=== PATIENT | female | born 1950 | race Caucasian/White ===

== ENCOUNTER → 2016-08-01 | Outpatient (CLI) | payer BC ==
[~2016-08-01] MED LIST: ALBU1AER9 INH; ASTN; ATV1 PO; BIOT1CAP8 PO; BUPRTAB51 PO; CHOL1000 PO; CYAN10005 PO; ENOX80IN SQ; MOME50SP5; PRT/20 PO; RANI150T3 PO; RIVA1TAB4 PO; SYMIN160 INH; SYN25 PO; TIOTCAP INH; WARF1TAB6 PO
--- NOTE | 2016-08-01 11:19 | DIAGNOSTIC IMAGING REPORT ---
ULTRASOUND OF THE THYROID GLAND CLINICAL HISTORY: Nontoxic multinodular goiter. COMPARISON STUDY: Thyroid ultrasound dated 12/15/2012. TECHNIQUE: Real-time, grayscale, and color flow sonography of the thyroid gland is performed utilizing a high-frequency linear transducer. Images are reviewed in the transverse and longitudinal planes. FINDINGS: Right lobe: The right lobe of the thyroid gland is surgically absent Left lobe: The left lobe of the thyroid gland is slightly enlarged and heterogeneous in echotexture, measuring 5.3 x 2.5 x 2.1 cm. A honeycomb nodule in the anterior lower pole measures 1.2 x 0.8 x 0.8 cm (previously measured 0.9 x 0.5 x 0.7 cm). Additional subcentimeter nodules are noted. The previously characterized 0.6 x 0.5 x 0.7 cm nodule seen on 12/15/2012 has likely decreased in size and is not well visualized. Isthmus: The thyroid isthmus is normal in appearance and measures 0.4 cm in AP diameter. IMPRESSION: 1. The right lobe of the thyroid gland is surgically absent. 2. Small left-sided thyroid nodules are noted as detailed above. The appearance has not significantly changed from 12/15/2012. Electronically signed by: Gregory Sampson M.D. 08/01/2016 11:18 AM Dictated Date/Time: 08/01/2016 11:15 AM
== END | disposition home or self-care (01) ==
LOC: C.ULTR 10:16
PROVIDERS: ATTEND Surgery
DX: E04.2 Nontoxic multinodular goiter (principal)

== ENCOUNTER → 2016-12-12 | Day surgery (SDC) | payer BC ==
[2016-12-05 08:24] VITALS: BMI 31.0
[~2016-12-12] VITALS: Ht 165.1 cm; Wt 86.4 kg
[~2016-12-12] MED LIST changes: -ASTN; -CHOL1000 PO; +FENTANYL CITRATE INJ 50 MCG/1 ML 2 ML VIAL ONE; +LIDOCAINE HCL 2% 2 ML VIAL (20MG/ML) ONE; -MOME50SP5; +PROPOFOL IV EMULSION 10 MG/ML 20 ML VIAL IV ONE; -PRT/20 PO; -RANI150T3 PO; -RIVA1TAB4 PO; +SODIUM CHLORIDE 0.9% 500ML 500 ML IV ONE; -SYN25 PO
[2016-12-12 13:23] VITALS: Ht 165.1 cm; Wt 86.4 kg
[2016-12-12 13:25] VITALS: TEMP 36.9
--- NOTE | 2016-12-12 14:10 | Endo History and Physical ---
History & Physical Date of Service: Dec 12, 2016. Chief Complaint: DYSPHAGIA Referring Physician: DR. TEO GUERRA History of Present Illness dysphagia Past Medical History Anxiety, Reflux, Thyroid Disease, Other Past Surgical History Hx Cardiac Surgery: No Hx Internal Defibrillator: No Hx Pacemaker: No Hx Abdominal Surgery: No Hx of Implantable Prosthesis: No Hx Post-Op Nausea and Vomiting: Yes Hx Cancer Surgery: Yes (BACK EXCISION-MELANOMA) Hx Thoracic Surgery: No Hx Orthopedic: Yes (RT FOOT SURGERY (HAMMER TOE REPAIR)) Hx Urinary Tract Surgery: No Family History None Social History Smoking Status: Heavy Tobacco Smoker Hx Substance Use: No Hx Alcohol Use: Yes (1X MONTHLY) Allergies Coded Allergies: Latex1 -Allergic Contact Dermititis (Verified Allergy, Mild, 12/12/16) Bacitracin (Verified Allergy, Unknown, RASH, 12/12/16) Neomycin (Verified Allergy, Unknown, RASH, 12/12/16) Polymyxin B (Verified Allergy, Unknown, RASH, 12/12/16) Current Medications Reported Home Medications Medications Dose Route/Sig Max Daily Dose Days Date Category Dose Instructions Jantoven (Warfarin Sodium) 1 Mg Tab 1 Mg PO DIRECTED 12/05/16 Reported TAKES 3MG 2XWK TAKES 4MG 5XWK Wellbutrin-Xl (Bupropion HCl) 300 Mg Tabcr 300 Mg PO QAM 12/05/16 Reported Lorazepam 1 Mg Tab 1 Mg PO BID PRN 05/17/16 Reported Spiriva Handihaler (Tiotropium [place]) 18 Mcg/ Aerp 1 Cap INH QAM 01/03/16 Reported Vitamin B-12 (Cyanocobalamin) 1,000 Mcg Tab 2,500 Mcg PO QAM 05/24/15 Reported Proair Hfa (Albuterol) Aers 2 Puffs INH UD PRN 05/24/15 Reported Symbicort 160/4.5 Inhaler (Budesonide/Formoterol Fumarate) Aero 2 Puffs INH BID 05/24/15 Reported Biotin 1 Mg Cap 1 Cap PO QAM 12/05/16 Reported Vital Signs Weight (Kilograms): 86.36 Height (Feet): 5 Height (Inches): 5 Date Time Temp Pulse Resp B/P (MAP) Pulse Ox O2 Delivery O2 Flow Rate FiO2 12/12/16 13:25 36.9 81 20 156/69 (98) 97 Room Air Physical Exam AAOx3 Nls1s2 Lungs CTA Abd soft NT/ND + BS - CCe Assessment and Plan EGD/ dilation
--- NOTE | 2016-12-12 14:26 | Discharge Instructions ---
Endoscopy Patient Instructions Date / Procedure(s) Performed Dec 12, 2016. EGD Allergy Information Coded Allergies: Latex1 -Allergic Contact Dermititis (Verified Allergy, Mild, 12/12/16) Bacitracin (Verified Allergy, Unknown, RASH, 12/12/16) Neomycin (Verified Allergy, Unknown, RASH, 12/12/16) Polymyxin B (Verified Allergy, Unknown, RASH, 12/12/16) Discharge Date / Findings Dec 12, 2016. esophagitis gastritis-bx Medication Instructions Stopped Medication(s): COUMADIN AND VITAMINS Restart Stopped Medication(s): Reported Home Medications Medications Dose Route/Sig Max Daily Dose Days Date Category Dose Instructions Jantoven (Warfarin Sodium) 1 Mg Tab 1 Mg PO DIRECTED 12/05/16 Reported TAKES 3MG 2XWK TAKES 4MG 5XWK Wellbutrin-Xl (Bupropion HCl) 300 Mg Tabcr 300 Mg PO QAM 12/05/16 Reported Lorazepam 1 Mg Tab 1 Mg PO BID PRN 05/17/16 Reported Spiriva Handihaler (Tiotropium [place]) 18 Mcg/ Aerp 1 Cap INH QAM 01/03/16 Reported Vitamin B-12 (Cyanocobalamin) 1,000 Mcg Tab 2,500 Mcg PO QAM 05/24/15 Reported Proair Hfa (Albuterol) Aers 2 Puffs INH UD PRN 05/24/15 Reported Symbicort 160/4.5 Inhaler (Budesonide/Formoterol Fumarate) Aero 2 Puffs INH BID 05/24/15 Reported Biotin 1 Mg Cap 1 Cap PO QAM 12/05/16 Reported Prilosec 40 mg daily Reported Home Medications Medications Dose Route/Sig Max Daily Dose Days Date Category Dose Instructions Jantoven (Warfarin Sodium) 1 Mg Tab 1 Mg PO DIRECTED 12/05/16 Reported TAKES 3MG 2XWK TAKES 4MG 5XWK Wellbutrin-Xl (Bupropion HCl) 300 Mg Tabcr 300 Mg PO QAM 12/05/16 Reported Lorazepam 1 Mg Tab 1 Mg PO BID PRN 05/17/16 Reported Spiriva Handihaler (Tiotropium [place]) 18 Mcg/ Aerp 1 Cap INH QAM 01/03/16 Reported Vitamin B-12 (Cyanocobalamin) 1,000 Mcg Tab 2,500 Mcg PO QAM 05/24/15 Reported Proair Hfa (Albuterol) Aers 2 Puffs INH UD PRN 05/24/15 Reported Symbicort 160/4.5 Inhaler (Budesonide/Formoterol Fumarate) Aero 2 Puffs INH BID 05/24/15 Reported Biotin 1 Mg Cap 1 Cap PO QAM 12/05/16 Reported Prilosec 40 mg daily Provider Instructions Activity Restrictions - No exercising or heavy lifting for 24 hours. - Do not drink alcohol the day of the procedure. - Do not drive a car or operate machinery until the day after the procedure. - Do not make any important decisions or sign important papers in 24 hours after the procedure. Following Day: - Return to full activity which may include returning to work/school. Diet Start your diet with liquids and light foods (jello, soup, juice, toast). Then eat your usual diet if not nauseated. Treatment For Common After Affects For mild abdominal pain, bloating, or excessive gas: - Rest - Eat lightly - Lie on right side Follow-Up Information Follow-up with DR. TEO GUERRA as scheduled Anesthesia Information What You Should Know You have had a procedure that required some medicine to reduce anxiety and discomfort. This treatment is called moderate sedation. After receiving the treatment, you may be sleepy, but you will be able to breathe on your own. The effects of the treatment may last for several hours. Follow these instructions along with Activity/Diet recommendations noted above: * Do NOT do anything where dizziness or clumsiness would be dangerous. * Rest quietly at home today, then you can be up and about tomorrow. * Have a responsible person stay with you the rest of today. * You may have had an I.V. today. If so, you may take the dressing off later today. Recommendations Call your doctor if: * Trouble breathing * Continuous vomiting for more than 24 hours * Temperature above 101 degrees * Severe abdominal pain or bloating * Pain not relieved by pain medicine ordered * There is increased drainage or redness from any incision * A large amount of rectal bleeding greater than 2-3 tablespoons. (If you had a polyp/s removed or have hemorrhoids, a small amount of blood - from the rectum is to be expected.) * You have any unanswered questions or concerns. IN THE EVENT OF A SERIOUS EMERGENCY, GO TO THE NEAREST EMERGENCY ROOM Your discharge instructions were prepared by provider Gee Garcia. Patient Instructions Signature Page Irene Walker Patient (or Guardian) Signature/Date: I have read and understand the instructions given to me by my caregivers. Caregiver/RN/Doctor Signature/Date: The above-named patient and/or guardian has received patient instructions on this date. + Original Patient Signature Page (only) stays with chart. Please make copy for patient.
--- NOTE | 2016-12-12 14:33 | GI REPORT ---
Procedure Date: 12/12/2016 1:55 PM Procedure: Upper GI endoscopy Indications: Dysphagia Medicines: Propofol per Anesthesia Complications: No immediate complications. Estimated blood loss: Minimal. Estimated Blood Loss: Estimated blood loss was minimal. Procedure: Pre-Anesthesia Assessment: - Prior to the procedure, a History and Physical was performed, and patient medications and allergies were reviewed. The patient's tolerance of previous anesthesia was also reviewed. The risks and benefits of the procedure and the sedation options and risks were discussed with the patient. All questions were answered, and informed consent was obtained. Prior Anticoagulants: The patient has taken no previous anticoagulant or antiplatelet agents. ASA Grade Assessment: III - A patient with severe systemic disease. After reviewing the risks and benefits, the patient was deemed in satisfactory condition to undergo the procedure. After obtaining informed consent, the endoscope was passed under direct vision. Throughout the procedure, the patient's blood pressure, pulse, and oxygen saturations were monitored continuously. The scope was introduced through the mouth, and advanced to the second part of duodenum. The upper GI endoscopy was accomplished without difficulty. The patient tolerated the procedure well. Findings: The upper third of the esophagus and middle third of the esophagus were normal. LA Grade B (one or more mucosal breaks greater than 5 mm, not extending between the tops of two mucosal folds) esophagitis with no bleeding was found 33 to 35 cm from the incisors. A small hiatus hernia was found. The proximal extent of the gastric folds (end of tubular esophagus) was 35 cm from the incisors. The hiatal narrowing was 37 cm from the incisors. The Z-line was 35 cm from the incisors. Striped mildly erythematous mucosa without bleeding was found in the gastric antrum. Biopsies were taken with a cold forceps for Helicobacter pylori testing. The examined duodenum was normal. The cardia and gastric fundus were normal on retroflexion. Retained gastric contents are not identified on this exam. Impression: - Normal upper third of esophagus and middle third of esophagus. - LA Grade B reflux esophagitis. - Small hiatus hernia. - Erythematous mucosa in the antrum. Biopsied. - Normal examined duodenum. Recommendation: - Discharge patient to home (ambulatory). - Advance diet as tolerated. MD Gee Blum MD 12/12/2016 2:32:47 PM This report has been signed electronically. Note Initiated On: 12/12/2016 1:55 PM I attest to the content of the Intraoperative Record and orders documented therein, exceptions below
[2016-12-12 14:55] VITALS: BP 142/60; PULSE 83; O2SAT 93
--- NOTE | 2016-12-12 14:58 | Anesthesiology Progress Note ---
Anesthesia Post Op Note Date & Time Dec 12, 2016 at 14:58 Vital Signs Pain Intensity: 0 Vital Signs Past 12 Hours Date Time Temp Pulse Resp B/P (MAP) Pulse Ox O2 Delivery O2 Flow Rate FiO2 12/12/16 14:55 83 16 142/60 (87) 93 Room Air 12/12/16 14:40 80 16 137/67 (90) 93 Room Air 12/12/16 14:25 84 16 123/58 (79) 95 Room Air 12/12/16 13:25 36.9 81 20 156/69 (98) 97 Room Air Notes Mental Status: alert / awake / arousable, participated in evaluation Pt Amnestic to Procedure: Yes Nausea / Vomiting: adequately controlled Pain: adequately controlled Airway Patency, RR, SpO2: stable & adequate BP & HR: stable & adequate Hydration State: stable & adequate Anesthetic Complications: no major complications apparent
== END | disposition home or self-care (01) ==
LOC: C.GI 12:53
PROVIDERS: ATTEND Internal Medicine Gastroenterology
DX: R13.10 Dysphagia, unspecified (principal); K21.0 Gastro-esophageal reflux disease with esophagitis; K44.9 Diaphragmatic hernia without obstruction or gangrene; J44.9 Chronic obstructive pulmonary disease, unspecified; F41.9 Anxiety disorder, unspecified; F17.200 Nicotine dependence, unspecified, uncomplicated; Z98.890 Other specified postprocedural states; Z86.718 Personal history of other venous thrombosis and embolism; Z85.828 Personal history of other malignant neoplasm of skin; Z91.040 Latex allergy status; Z88.1 Allergy status to other antibiotic agents

== ENCOUNTER → 2017-02-18 | Outpatient (CLI) | payer BC ==
[~2017-02-18] MED LIST changes: -FENTANYL CITRATE INJ 50 MCG/1 ML 2 ML VIAL ONE; -LIDOCAINE HCL 2% 2 ML VIAL (20MG/ML) ONE; -PROPOFOL IV EMULSION 10 MG/ML 20 ML VIAL IV ONE; -SODIUM CHLORIDE 0.9% 500ML 500 ML IV ONE
--- NOTE | 2017-02-18 14:25 | DIAGNOSTIC IMAGING REPORT ---
RIGHT SHOULDER MIN 2 VIEWS ROUTINE CLINICAL HISTORY: Right shoulder pain COMPARISON: None. DISCUSSION: No fractures or dislocations are visualized. There is mild acromial spurring. There is a partially visualized right perihilar opacity. While likely representing a vessel, either pathologic entities cannot be excluded IMPRESSION: 1. Acromial spurring 2. No fractures or subluxations identified. Electronically signed by: Fabian Delaney M.D. 02/18/2017 2:24 PM Dictated Date/Time: 02/18/2017 2:22 PM
== END | disposition home or self-care (01) ==
LOC: C.RAD 13:40
PROVIDERS: ATTEND Family Medicine
DX: M25.511 Pain in right shoulder (principal); M75.91 Shoulder lesion, unspecified, right shoulder

== ENCOUNTER → 2017-04-22 | Outpatient (CLI) | payer BC ==
--- NOTE | 2017-04-22 14:55 | MAMMOGRAPHY REPORT ---
BILATERAL DIGITAL SCREENING MAMMOGRAM WITH CAD: 04/22/2017 CLINICAL HISTORY: Routine screening. Patient has no complaints. TECHNIQUE: Bilateral CC and MLO views were obtained. Repeat left MLO views were obtained due to gri d line artifact. Current study was also evaluated with a Computer Aided Detection (CAD) system. COMPARISON: Comparison is made to exams dated: 04/20/2016 mammogram, 04/19/2015 mammogram, 03/04/2014 mammogram, 03/03/2013 mammogram, 02/28/2012 mammogram, and 12/14/2010 mammogram - [facility]. BREAST COMPOSITION: There are scattered areas of fibroglandular density in both breasts. FINDINGS: There are possible groupings of microcalcifications in the upper outer middle to posterior left breast, for which additional spot magnification views are recommended. There are other scattered benign round and punctate microcalcifications, stable bilaterally. No other suspicious mass, architectural distortion or cluster of suspicious microcalcifications is seen. IMPRESSION: ACR BI-RADS CATEGORY 0: INCOMPLETE EVALUATION: NEED ADDITIONAL IMAGING EVALUATION The possible groupings of microcalcifications in the left upper outer breast need additional evaluati on. The patient will be called to schedule an appointment. Approximately 10% of breast cancers are not detected with mammography. A negative mammographic report should not delay biopsy if a clinically suggestive mass is present. Emily Caraballo M.D. ay/:04/22/2017 12:54:13 Note Teller: Brittaney HADDAD)(Ella), [facility] letter sent: Addl Imaging 0 BI-RADS Code: ACR BI-RADS Category 0: Incomplete Evaluation: Need Additional Imaging Evaluation
== END | disposition home or self-care (01) ==
LOC: C.MAMM 11:54
PROVIDERS: ATTEND Family Medicine
DX: Z12.31 Encounter for screening mammogram for malignant neoplasm of breast (principal); Z80.3 Family history of malignant neoplasm of breast; R92.0 Mammographic microcalcification found on diagnostic imaging of breast

== ENCOUNTER → 2017-05-02 | Outpatient (CLI) | payer BC ==
--- NOTE | 2017-05-02 14:55 | MAMMOGRAPHY REPORT ---
UNILATERAL LEFT DIGITAL DIAGNOSTIC MAMMOGRAM TOMOSYNTHESIS: 05/02/2017 CLINICAL HISTORY: Callback from screening mammogram for left breast calcifications. Family history o f breast cancer in her sister and mother. TECHNIQUE: Breast tomosynthesis in addition to standard 2D mammography was performed. Spot magnific ation left CC and ML views and spot compression left CC and MLO 2-D and tomosynthesis images were obt ained. COMPARISON: Comparison is made to exams dated: 04/22/2017 mammogram, 04/20/2016 mammogram, 5 mammogram, 03/04/2014 mammogram, 03/03/2013 mammogram, and 02/28/2012 mammogram - [facility]. BREAST COMPOSITION: There are scattered areas of fibroglandular density in the left breast. FINDINGS: Spot magnification views of the left breast demonstrate a small 5 mm cluster of faint predo minantly punctate calcifications in the left upper outer quadrant. The calcifications are not clearl y shown to be located within the skin and therefore may be parenchymal in location. The calcificatio ns are new compared to prior exams. Given that the cluster is new and is not clearly located within the skin, it is indeterminate and stereotactic biopsy is recommended for further evaluation. Other s cattered and grouped calcifications within the left upper outer breast are shown to be located within the skin on the tomosynthesis images and are therefore compatible with benign dermal calcifications. IMPRESSION: ACR BI-RADS CATEGORY 4: SUSPICIOUS New small 5 mm group of calcifications in the left upper outer quadrant, which are not clearly locate d within the skin on the additional images. The calcifications are indeterminate and stereotactic bi opsy is recommended for further evaluation. A phone call was made to the physician's office to confirm faxed results were received. The patient has been verbally notified of the results. She tentatively scheduled the biopsy before leaving the d epartment. I will leave it up to the patient's prescribing physician if she can safely discontinue C oumadin prior to the procedure. Approximately 10% of breast cancers are not detected with mammography. A negative mammographic report should not delay biopsy if a clinically suggestive mass is present. Shala Gastelum M.D. ah/:05/02/2017 11:57:16 Model Dresser: Medina HADDAD)(M), [facility] letter sent: Abnormal 4/5 BI-RADS Code: ACR BI-RADS Category 4: Suspicious
== END | disposition home or self-care (01) ==
LOC: C.MAMM 10:02
PROVIDERS: ATTEND Family Medicine
DX: R92.1 Mammographic calcification found on diagnostic imaging of breast (principal)

== ENCOUNTER → 2017-05-14 | Outpatient (CLI) | payer BC ==
--- NOTE | 2017-05-14 11:33 | Discharge Instructions ---
Discharge Instructions Procedure Procedure Date: May 14, 2017. Reason for visit: Left Calcs. Discharge Discharge Date: May 14, 2017. Discharge Diagnosis: post left breast stereotactic guided biopsy Medications Restart Stopped Medication(s): Follow coumadin clinic instructions, but may restart coumadin this evening Instructions Activity Recommendations: Additional Limitations (see below) Return to School/Work: no limitations Recommended Home Diet: No Limitations Provider Instructions: ACTIVITY RECOMMENDATIONS: * No lifting, pushing, pulling or exercising the affected side for three days. RETURN TO SCHOOL/WORK: * You may return to work/school after the procedure, but do not perform any strenuous activities for 24 to 48 hours. MEDICATIONS: * Tylenol (two 325 mg) every four to six hours if needed for mild pain (if not allergic to Tylenol). DIET: * Resume previous diet. SPECIAL CARE INSTRUCTIONS: * Keep biopsy site dry for 24 hours. May shower after 24 hours, but do not soak (bathe) incision. * May remove Tegaderm (plastic patch) tomorrow AFTER showering. * Leave the steri-strips on for one week. Allow the steri-strips to fall off by themselves. If not off after one week, you may remove them. You may place a Bandaid crosswise over the strips, if desired. * Apply ice 10 minutes on and 10 minutes off as needed. * Wear a bra at bedtime to sleep more comfortably for 2-3 days. * Your referring physician should have the results after approximately 5 to 7 business days. * Call for unusual bleeding, fever, drainage, etc or if you have any questions call [phone] during normal business hours or after hours call Dr Caraballo, . FOLLOW UP VISIT: Follow-up with Referring Physician as scheduled. Allergies Coded Allergies: Latex1 -Allergic Contact Dermititis (Verified Allergy, Mild, 12/12/16) Bacitracin (Verified Allergy, Unknown, RASH, 12/12/16) Neomycin (Verified Allergy, Unknown, RASH, 12/12/16) Polymyxin B (Verified Allergy, Unknown, RASH, 12/12/16) Tino Lopez Recommendations: Call your doctor if: * Temperature above 101 degrees * Pain not relieved by pain medicine ordered * There is increased drainage or redness from any incision * You have any unanswered questions or concerns. Your Doctors Instructions noted above were prepared by provider Emily Caraballo. Patient Signature Section: Patient Instructions Signature Page Irene Walker Patient (or Guardian) Signature/Date: I have read and understand the instructions given to me by my caregivers. Caregiver/RN/Doctor Signature/Date: The above-named patient and/or guardian has received patient instructions on this date. + Original Patient Signature Page (only) stays with chart. Please make copy for patient.
--- NOTE | 2017-05-21 09:34 | MAMMOGRAPHY REPORT ---
UNILATERAL LEFT DIGITAL DIAGNOSTIC MAMMOGRAM: 05/14/2017 CLINICAL HISTORY: Status post stereotactic biopsy of a faint cluster of amorphous microcalcifications in the upper outer middle one third of the left breast. Please refer to the report from left breast stereotactic biopsy performed at the same time for full d etail. IMPRESSION: POST PROCEDURE IMAGING FOR MARKER PLACEMENT Please refer to the report from left breast stereotactic biopsy performed at the same time for full d etail. Approximately 10% of breast cancers are not detected with mammography. A negative mammographic report should not delay biopsy if a clinically suggestive mass is present. Emily Caraballo M.D. ay/:05/14/2017 11:31:45 Technology Director: Medina SALDAÑA(Cora)(M), [facility] BI-RADS Code: Post Procedure Imaging For Marker Placement
--- NOTE | 2017-05-21 09:34 | MAMMOGRAPHY REPORT ---
STEREOTACTIC GUIDED BIOPSY LEFT BREAST: 05/14/2017 CLINICAL HISTORY: Faint clustered microcalcifications in the left upper outer quadrant. Patient pres ents for stereotactic guided biopsy. Family history of breast cancer. COMPARISON: Comparison is made to exams dated: 05/02/2017 mammogram, 04/22/2017 mammogram, 04/20/2016 mammogram, and 04/19/2015 mammogram - [facility]. PATIENT CONSENT: After explaining the risks, benefits and alternatives of the procedure to the patien t, informed consent was obtained both verbally and in writing. Specific risks include: Bleeding, inf ection, puncture of adjacent structure, pain, nontarget biopsy, sampling error, metal allergy and med ication reaction. PROCEDURE DESCRIPTION: A time-out was performed and the left breast was confirmed as the site of biop sy. The patient was placed prone on the stereotactic biopsy table and the breast was placed in CC fro m above compression, with slight roll. A bailiff image was obtained that demonstrated the clustered ángel rocalcifications in question. They are amenable to sterotactic biopsy. Then +15 and -15 stereo giovanna r images were obtained. The calcifications were targeted utilizing the coordinates obtained by the [employer]. The skin was prepped with Betadine. 1% Lidocaine with and without epinipherine was administe red as local anesthesia. A small skin incision was made. Through the incision, the needle was insert ed to the depth determined by the computer. 6 samples were obtained using a OneWire 9-gauge vacuu m-assisted biopsy device. The specimen radiograph demonstrated several phone representative microcalcificat ions, therefore, a metallic marker was placed at the biopsy site. There was no immediate complication . Hemostasis was achieved after several minutes of manual compression. The samples were sent to path ogy in two appropriately labeled containers, "with calcifications" and "without calcifications". Al l of the samples were obtained from the same single biopsy site. Postprocedure CC and ML views of the left breast were obtained. A new dumbbell-shaped biopsy marker clip is identified in the left upper outer middle one third of the breast adjacent to an air pocket from the biopsy site. No residual faint microcalcifications are definitely seen. No significant pos t biopsy hematoma. IMPRESSION: STEREOTACTIC GUIDED BIOPSY 1. Status post stereotactic biopsy of a faint cluster of microcalcifications in the upper outer middl e one third of the left breast, with biopsy marker placed at the site. 2. Patient may resume Coumadin this evening and follow remainder of bridging Lovenox protocol, as no postbiopsy hematoma is identified. The patient will receive notification of the biopsy results from her referring physician. Emily Caraballo M.D. ay/:05/14/2017 11:55:12 Paperboard Box Maker: Medina HADDAD)(Ella), [facility]
== END | disposition home or self-care (01) ==
LOC: C.MAMM 10:26
PROVIDERS: ATTEND Family Medicine
DX: R92.0 Mammographic microcalcification found on diagnostic imaging of breast (principal)

== ENCOUNTER → 2017-05-27 | Outpatient (CLI) | payer BC ==
--- NOTE | 2017-05-27 13:49 | DIAGNOSTIC IMAGING REPORT ---
CHEST 2 VIEWS ROUTINE CLINICAL HISTORY: R05 COUGH dizzy COMPARISON STUDY: 07/04/2015 FINDINGS: The bones soft tissues and hemidiaphragms are normal. The cardiomediastinal silhouette is normal. The lungs are clear. The pulmonary vasculature is normal. IMPRESSION: Negative chest. The above report was generated using voice recognition software. It may contain grammatical, syntax or spelling errors. Electronically signed by: Vadim Ponce M.D. 05/27/2017 1:48 PM Dictated Date/Time: 05/27/2017 1:48 PM
--- NOTE | 2017-05-27 13:56 | DIAGNOSTIC IMAGING REPORT ---
L-SPINE MIN 4 VIEWS ROUTINE HISTORY: 67 years-old Female R05 COUGH R20.0 ANTHESTHESIA OF THE SKIN bilateral lower extremity radiography with history of spinal stenosis COMPARISON: CT abdomen and pelvis 03/09/2014 TECHNIQUE: 5 views of the lumbar spine FINDINGS: There are 5 lumbar type vertebral segments present. The bones are mildly demineralized. 3 mm retrolisthesis L2 on L3 is noted, possibly secondary to underlying facet disease. Mild anterior wedging of approximately 20% involves the T12 vertebral body, unchanged. 20% anterior wedging of the L1 vertebral body appears new from comparison CT. No retropulsion identified. Multilevel endplate spurring and facet arthropathy is noted along with intervertebral disc space narrowing which is predominately mild to moderate within the lumbar spine. Soft tissues are unremarkable. Radiodensities of the left upper abdomen measuring up to 4 mm suggest possible nephrolithiasis. IMPRESSION: 1. Age-indeterminate 20% anterior endplate wedging of the L1 vertebral body appears new from comparison CT 03/09/2014. No associated retropulsion. Correlate with patient history and point tenderness. 2. Degenerative changes as above. 3. Suggested left nephrolithiasis. The above report was generated using voice recognition software. It may contain grammatical, syntax or spelling errors. Electronically signed by: Blas Scott M.D. 05/27/2017 1:54 PM Dictated Date/Time: 05/27/2017 1:50 PM
== END | disposition home or self-care (01) ==
LOC: C.RAD 12:58
PROVIDERS: ATTEND Family Medicine
DX: R05 Cough (principal); R20.0 Anesthesia of skin

== ENCOUNTER → 2017-06-21 | Outpatient (CLI) | payer BC ==
[~2017-06-21] MED LIST changes: +ALEN70TA4 PO; +ATV/1 PO; +DIPH-437 PO; +LEVO25TA5 PO; +MELA1CAP9 PO; +SPRIN/30 INH; +VNTHFA/IN INH
--- NOTE | 2017-06-21 10:59 | DIAGNOSTIC IMAGING REPORT ---
LEFT FOOT 3 VIEWS HISTORY: Medial left foot pain. COMPARISON: None. FINDINGS: There is no fracture or dislocation. Soft tissues are unremarkable. No radiopaque foreign bodies. Small plantar and posterior calcaneal spurs. The Lisfranc joint is intact. IMPRESSION: 1. No fracture or dislocation within the left foot. 2. Small plantar and posterior calcaneal spurs. Electronically signed by: Ramakrishna Hassan M.D. 06/21/2017 10:57 AM Dictated Date/Time: 06/21/2017 10:53 AM
== END | disposition home or self-care (01) ==
LOC: C.RAD 10:30
PROVIDERS: ATTEND Family Medicine
DX: M79.672 Pain in left foot (principal)

== ENCOUNTER → 2017-07-25 | Outpatient (CLI) | payer BC ==
[~2017-07-25] MED LIST changes: -ALEN70TA4 PO; -ATV/1 PO; -DIPH-437 PO; -LEVO25TA5 PO; -MELA1CAP9 PO; -SPRIN/30 INH; -VNTHFA/IN INH
== END | disposition home or self-care (01) ==
LOC: C.MAMM 10:59
PROVIDERS: ATTEND Family Medicine
DX: M85.89 Other specified disorders of bone density and structure, multiple sites (principal)

== ENCOUNTER → 2017-09-02 | Outpatient (CLI) | payer BC ==
--- NOTE | 2017-09-03 08:08 | DIAGNOSTIC IMAGING REPORT ---
CT LUNG SCREENING, LOW DOSE WITH COMPUTER-AIDED DETECTION (CAD) CLINICAL HISTORY: Cancer screening. 40 pack-year smoking history. Nicotine dependence. COMPARISON STUDY: Chest radiograph dated 05/27/2017. Abdominal CT dated 03/09/2014. CT of the neck dated 01/16/2013. Chest CT dated 12/26/2010. Thyroid ultrasound dated 08/01/2016. TECHNIQUE: Low-dose helical CT was acquired without intravenous contrast from lung apices to bases and reconstructed at 2.5 mm every 2 mm. CAD was utilized for this study. A dose lowering technique was utilized adhering to the principles of ALARA. FINDINGS: Thyroid: Imaged portions of the thyroid gland are mildly enlarged and heterogeneous. Low-attenuation nodules are again noted. The largest is on the right and measures 2.1 cm. This is was characterized on the 08/01/2016 thyroid ultrasound. Thoracic aorta: There is mild atherosclerotic calcification of the thoracic aorta, which is normal in caliber and demonstrates standard 3 vessel arch anatomy. Heart: The heart is normal in size and configuration, without pericardial effusion. The coronary arteries are densely calcified. Lungs and pleural spaces: There is moderate emphysematous change. No airspace consolidation or pleural effusion is identified. A 6 cm pleural-based nodule in the right lower lobe as seen on image #125. A 2 mm pleural-based nodule is seen in the left upper lobe lung the major fissure on image #59. These are unchanged in from 2011 and of doubtful significance. Scattered calcified granulomas are observed. The trachea and central airways are clear. Mediastinum: There is no mediastinal lymphadenopathy. Meme: Not well assessed without IV contrast. Axilla: Clear. Upper abdomen: There is a small hiatal hernia. Partially visualized upper abdominal viscera is otherwise grossly within normal limits. Skeletal structures: The skeletal structures are osteopenic. Degenerative change and hyperkyphosis are noted in the thoracic spine. There are no lytic or blastic osseous lesions. IMPRESSION: 1. Moderate emphysema. 2. No concerning pulmonary lesion is seen. 3. No airspace consolidation or pleural effusion is identified. CAD FINDINGS: Nodule 1 Status: Baseline Nodule 1 Description: solid Nodule 1 Lesion ID: 1 Nodule 1 Slice Number: 63 Nodule 1 Volume (mm3): 43.2 Nodule 1 Major [place] mm: 5.8 Nodule 1 Minor [place] mm: 3.5 Overall Lung RADS Category: 2 Lung RADS Management Recommendation: Continue annual lung cancer screening. Lung RADS Follow Up Date: September 02, 2018 Lung RADS Nodule ID: 1 Electronically signed by: Gregory Sampson M.D. 09/03/2017 8:06 AM Dictated Date/Time: 09/02/2017 10:49 AM
== END | disposition home or self-care (01) ==
LOC: C.CTS 10:29
PROVIDERS: ATTEND Family Medicine
DX: Z87.891 Personal history of nicotine dependence (principal)

== ENCOUNTER → 2017-11-13 | Outpatient (CLI) | payer BC ==
--- NOTE | 2017-11-13 14:23 | MAMMOGRAPHY REPORT ---
UNILATERAL LEFT DIGITAL DIAGNOSTIC MAMMOGRAM TOMOSYNTHESIS WITH CAD: 11/13/2017 CLINICAL HISTORY: 67-year-old woman presents for follow-up in the left breast after previous stereota ctic biopsy which yielded benign results. TECHNIQUE: Left breast tomosynthesis in addition to standard 2D mammography was performed. Current st udy was also evaluated with a Computer Aided Detection (CAD) system. COMPARISON: Comparison is made to exams dated: 05/14/2017 mammogram, 05/14/2017 stereotactic biopsy, 05/02/2017 mammogram, 04/22/2017 mammogram, 04/20/2016 mammogram, and 04/19/2015 mammogram - [facility]. BREAST COMPOSITION: There are scattered areas of fibroglandular density in the left breast. FINDINGS: There is a stable dumbbell-shaped biopsy marker clip in the upper outer middle one third of the left breast. There are other scattered benign punctate and dermal calcifications throughout the left breast, without new suspicious grouping or cluster of microcalcifications. No new suspicious m ass, asymmetry or architectural distortion. Recommend return to annual screening mammography schedul e, due 2017. IMPRESSION: ACR BI-RADS CATEGORY 2: BENIGN Stable postbiopsy changes in the left breast, without mammographic evidence of malignancy. Return to annual mammogram screening schedule is recommended. The patient has been verbally notified of the re sults. Approximately 10% of breast cancers are not detected with mammography. A negative mammographic report should not delay biopsy if a clinically suggestive mass is present. Emily Caraballo M.D. ay/:11/13/2017 13:10:57 Scanning Supervisor: Mamie Kauffman, [facility] letter sent: Normal 1/2 BI-RADS Code: ACR BI-RADS Category 2: Benign
== END | disposition home or self-care (01) ==
LOC: C.MAMM 12:40
PROVIDERS: ATTEND Surgery
DX: Z09 Encounter for follow-up examination after completed treatment for conditions other than malignant neoplasm (principal)

== ENCOUNTER → 2018-02-12 | Outpatient (CLI) | payer BC ==
[~2018-02-12] MED LIST changes: -ALBU1AER9 INH; +ALEN70TA4 PO; +ATV/1 PO; -ATV1 PO; -BIOT1CAP8 PO; -BUPRTAB51 PO; -CYAN10005 PO; +DIPH-437 PO; -ENOX80IN SQ; +LEVO25TA5 PO; +MELA1CAP9 PO; +PERFLUTREN LIPID MICROSPHERE (DEFINITY) IV ONE; +SPRIN/30 INH; -TIOTCAP INH; +VNTHFA/IN INH
--- NOTE | 2018-02-12 17:16 | ECHOCARDIOGRAM REPORT ---
*NOTICE TO RECEIVING [employer] This information is strictly Confidential and protected under [place] law. [place] law prohibits you from making any further disclosure of this information unless further disclosure is expressly permitted by the written consent of the person to whom it pertains or is authorized by law. A general authorization for the release of medical or other information is not sufficient for this purpose. Hospital accepts no responsibility if the information is made available to any other person, INCLUDING THE PATIENT. Interpretation Summary * Name: SCARLET SIERRA Study Date: 02/12/2018 12:49 PM BP: 136/50 mmHg * Patient Location: [facility] HR: 85 * : 1950 (M/d/yyyy) Gender: Female Height: 64 in * Age: 67 yrs Ethnicity: [place] Weight: 193 lb * Ordering Physician: Taj Nascimento * Referring Physician: Taj Nascimento * Performed By: Oanh Workman RDCS * * Reason For Study: SOB * BSA: 1.9 m2 * -- Conclusions -- * Technically difficult study despite use of definity ultrasound contrast. * 1. Grossly normal LV size with borderline concentric LVH. * 2. LVEF 60-65%. Grade II diastolic dysfunction. * 3. Borderline dilated RV with normal RV function. * 4. No significant valvular pathology. * 5. Normal IVC and estimated CVP. * 6. No prior study for comparison. Procedure Details * A complete two-dimensional transthoracic echocardiogram was performed (2D, M-mode, Doppler and color flow Doppler). * The study was technically difficult. * There were technical limitations due to patient'sPoor acoustic windows secondary to severe lung disease. * A contrast injection of Definity was performed to improve assessment of LV function. * Contrast was injected into an intravenous site in the left arm. * One vial of Definity ultrasound contrast was diluted in normal saline to a total volume of 10 ml. A total of '3.5' ml of solution was administered during imaging. * Lot # [id number] of Definity utilized for procedure. * Expiration date 01/09. * The attending nurse who injected the contrast agent was BRIDGETTE RAGLAND RN. Left Ventricle * The left ventricle is grossly normal size. * There is borderline concentric left ventricular hypertrophy. * Ejection Fraction = 60-65%. * abnormal septal motion Right Ventricle * The right ventricle is borderline dilated. * The right ventricular systolic function is normal as assessed by tricuspid annular plane systolic excursion (TAPSE) (normal >1.5 cm). Atria * Borderline left atrial enlargement. * The right atrium is mildly dilated. Mitral Valve * The mitral valve is grossly normal. * There is no mitral valve stenosis. * Significant mitral regurgitation is absent. Tricuspid Valve * The tricuspid valve is not well visualized, but is grossly normal. * Significant tricuspid regurgitation is absent. Aortic Valve * The aortic valve is not well visualized. * No hemodynamically significant valvular aortic stenosis. * There is no significant aortic regurgitation. Pulmonic Valve * The pulmonary valve is inadequately visualized, but the Doppler data is adequate for interpretation. Great Vessels * Normal inferior vena cava size and collapsability with sniff indicates a normal right atrial pressure of 3 mmHg Left Ventricular Diastolic Function * Diastolic dysfunction, Grade II (pseudonormalization pattern). MMode 2D Measurements and Calculations LVOT diam 2.0 cm LVOT area 3.3 cm\S\2 LVAd ap4 31.3 cm\S\2 LVLd ap4 8.5 cm EDV(MOD-sp4) 97.9 ml EDV(sp4-el) 98.0 ml LVAs ap4 13.6 cm\S\2 LVLs ap4 5.8 cm ESV(MOD-sp4) 27.7 ml ESV(sp4-el) 27.3 ml EF(MOD-sp4) 71.7 % EF(sp4-el) 72.2 % LVAd ap2 25.2 cm\S\2 LVLd ap2 7.3 cm EDV(MOD-sp2) 71.0 ml EDV(sp2-el) 73.7 ml LVAs ap2 12.9 cm\S\2 LVLs ap2 6.4 cm ESV(MOD-sp2) 21.3 ml ESV(sp2-el) 22.0 ml EF(MOD-sp2) 70.0 % EF(sp2-el) 70.1 % LVLd %diff -15.85 % EDV(MOD-bp) 88.8 ml LVLs %diff 9.9 % ESV(MOD-bp) 25.2 ml EF(MOD-bp) 71.7 % SV(MOD-sp4) 70.2 ml SI(MOD-sp4) 36.4 ml/m\S\2 SV(MOD-sp2) 49.7 ml SI(MOD-sp2) 25.8 ml/m\S\2 SV(MOD-bp) 63.7 ml SI(MOD-bp) 33.0 ml/m\S\2 SV(sp4-el) 70.7 ml SI(sp4-el) 36.7 ml/m\S\2 SV(sp2-el) 51.7 ml SI(sp2-el) 26.8 ml/m\S\2 Doppler Measurements and Calculations MV E max tha 72.4 cm/sec MV A max tha 66.0 cm/sec MV E/A 1.1 MV dec time 0.21 sec Ao V2 max 108.7 cm/sec Ao max PG 4.7 mmHg Ao max PG (full) 2.0 mmHg BRAD(V,A) 2.5 cm\S\2 BRAD(V,D) 2.5 cm\S\2 LV V1 max PG 2.8 mmHg LV V1 max 83.2 cm/sec PA V2 max 72.8 cm/sec PA max PG 2.1 mmHg
== END | disposition home or self-care (01) ==
LOC: C.CPL 12:39
PROVIDERS: ATTEND Internal Medicine Critical Care Medicine
DX: R06.02 Shortness of breath (principal)

== ENCOUNTER 2023-06-17 06:33 | Inpatient (IN) ==
--- OUTSIDE RECORDS SUMMARY | 2023-06-17 06:36 | External Medical Summary | Continuity of Care Document ---
Author Name Unknown Organization [facility] [address] [place] [address] Address [address] [facility] [place], [place] [id number] Care Team Providers Care Warp Tension Tester Name Role Phone Nat Shankar Primary Care Physician [phone] Encounter [facility] [id number] Date(s): 06/06/23 - 06/06/[address] [place] [id number] [facility], [address] [place] [address] [phone] Encounter Diagnosis Anxiety(Discharge Diagnosis) - 05/31/23 Body mass index [BMI] 19.9 or less, adult(Discharge Diagnosis) - 06/06/23 Chronic constipation(Discharge Diagnosis) - 06/06/23 Tobacco abuse(Discharge Diagnosis) - 06/06/23 Weight loss(Discharge Diagnosis) - 06/06/23 Sacral pain(Discharge Diagnosis) - 06/06/23 Discharge Disposition: Home or Self Care Attending Physician: DO Shankar Kristen M Referring Physician: DO Shankar Kristen M Allergies, Adverse Reactions, Alerts Substance Reaction Severity Status codeine nausea Active Polysporin Rash Active raNITIdine nausea Active Neosporin Rash Active Levaquin Nausea Active Latex break out in rash Active IVP dye nauseated Active Assessment and Plan Extracted from: Title:Office Visit Note Author:DO Shankar Kriste n M Date:06/06/23 1.Chronic constipation Chronic condition, stable Goal:Resolution Data:unique tests ordered: _ Plan: _Pt is going totry smoothe move 2.Tobacco abuse Chronic condition, stable Goal:Resolution Data:unique tests ordered: _ Plan: _discussed and supported 3.Weight loss Chronic condition, stable Goal:Resolution Data:unique tests ordered: _ Plan: _pt is going to see nutrition 4.Sacral pain Chronic condition, stable Goal:Resolution Data:unique tests ordered: _ Plan: _Dr. Pryor Immunizations Given and Recorded Vaccine Date Status Refusal Reason SARS-CoV-2 (COVID-19) mRNA BNT-162b2 vax 09/02/20 Recorded SARS-CoV-2 (COVID-19) mRNA BNT-162b2 vax 08/05/20 Recorded human papillomavirus vaccine 1 10/24/09 Recorded 1Result Comment: [06/25/2012 Uncharted] Wrong patient Medications albuterol CFC free 90 mcg/inh MDI Start: 12/20/22 14:24:00 EDT, See Instructions, Disp# 6 kit, Refills: 3, INHALE 4 PUFFS BY MOUTH EVERY 4 HOURS NEEDED FOR WHEEZING, Pharmacy: [facility] Start Date: 12/20/22 Status: Ordered Amitiza Start: 01/10/23 15:08:00 EDT, 8 mcg =, PO, bid Start Date: 01/10/23 Status: Ordered cloNIDine 0.1 mg oral tablet Start: 05/13/23 10:50:00 EST Start Date: 05/13/23 Status: Ordered LORazepam 1 mg oral tablet Start: 05/31/23 9:57:00 EST, 1 tab, PO, bid, Disp# 180 tab, Refills: 3, prn, Pharmacy: [facility] Start Date: 05/31/23 Status: Ordered melatonin 10 mg oral tablet Start: 05/31/21 10:54:00 EST, 1 tab, PO, qhs Start Date: 05/31/21 Status: Ordered Metoprolol Succinate ER 25 mg oral tablet, extended release Start: 08/01/22 11:27:00 EST, 1 tab, PO, tid Start Date: 08/01/22 Status: Ordered omeprazole 20 mg oral delayed release capsule Start: 01/10/23 15:09:00 EDT, 1 cap, PO, Daily Start Date: 01/10/23 Status: Ordered Spiriva Respimat 10 ACT 2.5 mcg/inh inhalation aerosol Start: 08/08/21 11:44:00 EST, 2 inh, inhaled, Daily, Disp# 3 each, Refills: 3, Pharmacy: [facility] Start Date: 08/08/21 Status: Ordered Symbicort 160 mcg-4.5 mcg/inh inhalation aerosol Start: 12/11/22 14:21:00 EDT, 2 puff, inhaled, bid, Disp# 4 each, Refills: 3, Pharmacy: [facility] Start Date: 12/11/22 Status: Ordered Synthroid 25 mcg (0.025 mg) oral tablet Start: 06/01/22 12:00:00 EST, See Instructions, Disp# 135 tab, Refills: 3, 1.5 tab PO Daily, Note to Pharmacy: Please mail to the house, Pharmacy: [facility] Start Date: 06/01/22 Status: Ordered unknown medication Start: 02/08/22 12:58:00 EDT, oxygen 2LPM Start Date: 02/08/22 Status: Ordered warfarin 1 mg oral tablet Start: 11/21/22 11:09:00 EDT, See Instructions, Disp# 300 tab, Refills: 3, Per coag clinic. Pt takes 26mg weekly, Pharmacy: [facility] Start Date: 11/21/22 Status: Ordered Mental Status 06/06/23 Barriers to Learning one year None evide nt Mandatory Health Literacy Documentation Yes Health Literacy Communication Barriers N ever Primary Language Greenlandic Problem List Condition Confirmation Course Effective Dates Status H ealth Status Informant Pain in the abdomen Confirmed Active Heart rate problem Confirmed Active Actinic keratoses Confirmed Active COPD exacerbation Confirmed Active Alopecia Confirmed Active Anxiety Confirmed 03/09/13 Active Xerosis cutis Confirmed Active Multiple nevi Confirmed Active Epistaxis Confirmed Active Yeast vaginitis Confirmed Active Chronic constipation Confirmed Active Chronic hypoxemic respiratory failure 1 Confirmed Active Constipation Confirmed Active COPD Confirmed Active Cyst near tailbone Confirmed Active On home oxygen therapy Confirmed Active Sacral mass Confirmed Active Urinary disorder Confirmed Active SOB (shortness of breath) Confirmed Active Dysuria Confirmed Active Dermatitis Confirmed Active Factor V Leiden Confirmed Active Fall at home Confirmed Active History of melanoma Confirmed Active Left hip pain Confirmed Active Hypothyroidism Confirmed Active Wound of right leg Confirmed Active Biceps tendon tear Confirmed Active Milia Confirmed Active Stuffy nose Confirmed Active Coccydynia Confirmed Active Coccyx pain Confirmed Active Palpitations Confirmed Active Peripheral vascular disease Confirmed Active Activated protein C resistance Confirmed Active Rosacea Confirmed Active Sacral pain Confirmed Active Sacral back pain Confirmed Active Sebaceous cyst Confirmed Active Seborrheic keratosis Confirmed Active Right shoulder pain Confirmed Active Sinus tachycardia Confirmed Active Skin ulcer Confirmed Active Venous ulcer Confirmed Active Sleep disorder Confirmed Active Tachycardia Confirmed Active Tobacco user Confirmed Active Tobacco abuse Confirmed Active Tremor Confirmed Active Unintended weight loss Confirmed Active 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 Confirmed Active Common wart Confirmed Active Ambulatory dysfunction Confirmed Active Weight loss Confirmed Active 1See Outside Note 02/01/22 01/25/22- [facility] Maurizio Serrano MD Diagnosis Diagnosis Type Effective Dates Health Status Clinical Service Informant Anxiety Discharge Diagnosis 05/31/23 Non-Specified Chronic constipation Discharge Diagnosis 06/06/23 Body mass index [BMI] 19.9 or less, adult Discharge Diagnosis 06/06/23 Non-Specified Tobacco abuse Discharge Diagnosis 06/06/23 Sacral pain Discharge Diagnosis 06/06/23 Weight loss Discharge Diagnosis 06/06/23 Procedures Procedure Date Related Diagnosis Body Site Status Endoscopy 1 12/26/22 Completed Cholecystectomy 04/2021 Completed Cholecystectomy 04/2021 Completed Colonoscopy 2 10/25/20 Completed Colonoscopy 3 10/25/20 Completed Upper GI endoscopy 4 10/25/20 Comp leted Nuclear medicine hepatobiliary scan 5 08/16/20 Completed US EXAM ABDOM COMPLETE 6 07/12/20 Completed Mammogram 7 05/03/20 Completed Chest X-ray 8 08/25/19 Completed Barium swallow 9 06/19/19 Complete d Ultrasound of soft tissue of neck 10 06/19/19 Completed Other - Orthopedic Right Shoulder 11 06/15/19 Completed Mammogram 12 04/28/[address] of lungs 13 09/12/18 Completed Cataract extraction 14 11/27/17 Co mpleted Mammogram 15 11/13/[address] of lung screening 16 09/02/17 C ompleted Lung Nodule Program 17 09/02/17 Co mpleted Biopsy of breast 05/14/17 Complete d Mammogram 18 05/02/17 Completed Upper GI endoscopy 19, 20 12/12/16 Completed Punch biopsy of skin 05/01/16 Comp leted Mammogram 04/20/16 Completed Venous Doppler 21 01/03/16 Complet ed peripheral arterial testing 12/07/15 Completed Mammogram 04/19/15 Completed Colonoscopy 22 01/25/14 Completed Punch biopsy of skin 11/11/12 Comp leted Mammogram 23 50 Completed melanoma removed from back Completed thyroid removal Completed Upper gastrointestinal endoscopy 24 Completed 1Upper GI: Mildly severe reflux esophagitis with no bleeding. Normal stomach. Normal examined duodenum. No specimens collected. 2Impression: Diverticulosis in the sigmoid colon. No specimens collected. 3impression: - diverticulosis in the sigmoid colon - no specimens collected 4Impression: Z-line regular, 36 cm from the incisors. Normal esophagus. Normal stomach. Normal examined duodenum. No specimens collected. 5Impression: 1. No evidence for cystic duct obstruction. 6impression: 1. Small gallstones. No gallbladder wall thickening. The patient did describe tenderness with palpation over the gallbladder. Clinical correlation recommended to assess for a developing acute cholecystitis. 2. normal caliber common bile duct. 3. a 7 mm right renal cyst. 7normal 81. No acute cardiopulmonary findings. 2. Emphysema. 9FL Barium Swallow FINDINGS: Ingestion: the patient was able to ingest barium and the barum pill without difficulty. Aspiration: None IMPRESSION: Mild esophageal dysmotility possibly presbyesophagus. Small hiatal hernia. 10IMPRESSION: No sonographic abnormality is identified. 11Injection in right shoulder 12No mammographic evidence of malignancy. 1 year screening recommended. 13No acute intrathoracic abnormality identified. No suspicious pulmonary nodules. No PE focal airspace consolidation. 14L eye 15wnl 16Impression: 1- Moderate emphysema 2- No concerning pulmonary lesion is seen 3- No airspace consolidation or pleural effusion is identified 17Study report: Lung nodules where found in patients recent study The lung nodules have not changed since 2010 and are considered stable at this time The radiologist recommends follow up screening with a low does CT scan in 12 months. 18New small 5mm group of calcifications in the left upper outer quadrant, which is not clearly located with the skin on the additional images. The calcifications are indeterminate and stereotactic biopsy is recommended for further evaluation. 19Pathology results: Stomach, biopsy: 1) Benign unremarakable gastric mucosa. 2) Negative for acute inflammation, intestinal metaplasia, dysplasia and carcinoma. 20Normal upper third of esophagus and middle third of esophagus. LA grade B reflux esophagitis. Smallhiatus hernia. Erythematous mucosa in the antrum. Biopsied. Normal examined duodenum. 21No evidence of deep venous thrombus within the right lower extremity 22Colonoscopy normal- Repeat in 10 years. 23No mammographic evidence of malignancy. 1 year screening recommended. [id number] normal Vital Signs Most recent to oldest [Reference Range]: 1 Height 159.8 cm (06/06/23 11:50 AM) Patient Weight 50.8 kg (06/06/23 11:50 AM) Body Mass Index 19.89 kg/m2 (06/06/23 11:50 AM) Temperature [36.5-37.9 DegC] 35.6 DegC *LOW* (06/06/23 11:50 AM) Heart Rate 60 bpm (06/06/23 11:50 AM) Blood Pressure 102/60mmHg (06/06/23 11:50 AM) Cuff Pulse Pressure 42 mmHg (06/06/23 11:50 AM) Social History Social History Type Response Tobacco Current every day sm oker, Cigarettes 1 Smoking Status Current every day li ght smoker Sex Female 11 ppd for approx 45 years FCM Outpt Note * DO Shankar Kristen M: PERFORM Event Display: FCM Outpt Note Authored Date: [id number] Chief Complaint F/u History of Present Illness Pt presents as follow up. She has a new GI doc. She has been dealing with severe constipation. Pt states she used ex-lax and went. She hasn't gone since. Approx 2 days. Physical Exam Vitals & Measurements T:35.6C HR:60(Monitored) BP:102/60 HT:159.8cm WT:50.8kg WT:50.800kg(Dosing) BMI:19.89 PHQ2 Data(Data Documented on:06/06/2023 11:48) Emotional health assessment NEGATIVE Assessment/Plan 1.Chronic constipation Chronic condition, stable Goal:Resolution Data:unique tests ordered: _ Plan: _Pt is going totry smoothe move 2.Tobacco abuse Chronic condition, stable Goal:Resolution Data:unique tests ordered: _ Plan: _discussed and supported 3.Weight loss Chronic condition, stable Goal:Resolution Data:unique tests ordered: _ Plan: _pt is going to see nutrition 4.Sacral pain Chronic condition, stable Goal:Resolution Data:unique tests ordered: _ Plan: _Dr. Konstantin Harris I spent4 mintime in previsit planning including prepping note and chart review . I spent23 time in face to face interaction with patient concerning the issues that brought them in today. I spent4 min time in post visit planning including finishing note and depart process Total time spent today on patient visit31 min Problem List/Past Medical History Ongoing Actinic keratoses Activated protein C resistance Alopecia Ambulatory dysfunction Anxiety Biceps tendon tear Chronic constipation Chronic hypoxemic respiratory failure Coccydynia Coccyx pain Common wart Constipation COPD COPD exacerbation Cyst near tailbone Dermatitis Dysuria Epistaxis Factor V Leiden Fall at home Heart rate problem History of melanoma Hypothyroidism Left hip pain Milia Multiple nevi On home oxygen therapy Pain in the abdomen Palpitations Peripheral vascular disease Right shoulder pain Rosacea Sacral back pain Sacral mass Sacral pain Sebaceous cyst Seborrheic keratosis Sinus tachycardia Skin ulcer Sleep disorder SOB (shortness of breath) Stuffy nose Tachycardia Tobacco abuse Tobacco user Tremor Unintended weight loss Urinary disorder 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 Venous ulcer Weight loss Wound of right leg Xerosis cutis Yeast vaginitis Historical Actinic keratitis Acute sinus infection Atypical pneumonia Bilateral shoulder pain Bronchitis Callus Candidal esophagitis Cataract Chronic sinusitis Cough Diarrhea DVT Fatigue L1 vertebral fracture Laceration Left leg swelling Leg muscle spasm Leg numbness Leg ulcer Lentigo LIPOMA Lymphadenopathy Melanocytic nevus of trunk Muscle spasm Muscular deconditioning Nausea Nausea and vomiting Neck pain Open wound Oral thrush Pharyngeal mass PND (post-nasal drip) Pyoderma gangrenosa Rash Rectal hemorrhage Rectal incontinence Right foot pain Right upper quadrant pain S/P thyroid surgery Sacroiliitis Seeing double Senile hyperkeratosis Sinusitis Skin lesion Solitary sacroiliitis (disorder) Solitary sacroiliitis (disorder) Stasis dermatitis Stress Tennis elbow Thyroid disorder Thyroid nodule Tobacco abuse counseling Tongue discoloration Varicose Viral gastroenteritis Vomiting Weight disorder Procedure/Surgical History Endoscopy (12/26/2022)Cholecystectomy (04/2021)Cholecystectomy (04/2021)Colonoscopy (10/25/2020)Upper GI endoscopy (10/25/2020)Colonoscopy (10/25/2020)Nuclear medicine hepatobiliary scan (08/16/2020)US EXAM ABDOM COMPLETE (07/12/2020)Mammogram (05/03/2020)Chest X-ray (08/25/2019)Barium swallow (06/19/2019)Ultrasound of soft tissue of neck (06/19/2019)Other - Orthopedic Right Shoulder (06/15/2019)Mammogram (04/28/2019)CT of lungs (09/12/2018)Cataract extraction (11/27/2017)Mammogram (11/13/2017)CT of lung screening (09/02/2017)Lung Nodule Program (09/02/2017)Biopsy of breast (05/14/2017)Mammogram (05/02/2017)Upper GI endoscopy (12/12/2016)Punch biopsy of skin (05/01/2016)Mammogram (04/20/2016)Venous Doppler (01/03/2016)peripheral arterial testing (12/07/2015)Mammogram (04/19/2015)Colonoscopy (01/25/2014)Punch biopsy of skin (11/11/2012)Mammogram (1950)thyroid removalmelanoma removed from backUpper gastrointestinal endoscopy Medications albuterol(albuterol CFC free 90 mcg/inh MDI), See Instructions, 3 refills budesonide-formoterol(Symbicort 160 mcg-4.5 mcg/inh inhalation aerosol), 2 puff, inhaled, bid, 3 refills cloNIDine(cloNIDine 0.1 mg oral tablet) levothyroxine(Synthroid 25 mcg (0.025 mg) oral tablet), See Instructions, 3 refills LORazepam(LORazepam 1 mg oral tablet), 1 mg= 1 tab, PO, bid, 3 refills lubiprostone(Amitiza), 8 mcg, PO, bid melatonin(melatonin 10 mg oral tablet), 10 mg= 1 tab, PO, qhs metoprolol(Metoprolol Succinate ER 25 mg oral tablet, extended release), 25 mg= 1 tab, PO, tid omeprazole(omeprazole 20 mg oral delayed release capsule), 20 mg= 1 cap, PO, Daily tiotropium(Spiriva Respimat 10 ACT 2.5 mcg/inh inhalation aerosol), 2 inh, inhaled, Daily, 3 refills unknown medication warfarin(warfarin 1 mg oral tablet), See Instructions, 3 refills Allergies IVP dyenauseated Latexbreak out in rash LevaquinNausea NeosporinRash PolysporinRash codeinenausea raNITIdinenausea Social History Smoking Status Current every day light smoker Tobacco - High Risk Use:Current every day smoker Type:Cigarettes - Comments: 1 ppd for approx 45 years Family History Breast cancer: Mother and Sister. Emphysema of lung: Father. Hypertension..: Mother. Health Status Family Member(s) Immunizations Vaccine Date Status SARS-CoV-2 (COVID-19) mRNA BNT-162b2 vax 09/02/2020 Recorded SARS-CoV-2 (COVID-19) mRNA BNT-162b2 vax 08/05/2020 Recorded Recommendations Health Maintenance Pending(in the next year) OverDue Adult Influenza Vaccine due07/01/23and every 1year Due Adult COVID-19 Vaccination due06/06/23Unknown Frequency Adult Tdap/Td Vaccine due06/06/23Unknown Frequency Falls Plan of Care due06/06/23Unknown Frequency Medicare Annual Wellness Visit due06/06/23and every 1year Pneumococcal Vaccine Older Adults due06/06/23One-time only Shingles Vaccine due06/06/23One-time only Satisfied(in the past 1 year) Satisfied Body Mass Index on06/06/23.Satisfied by MARYANN Paniagua Angela Breast Cancer Screening on08/23/22.Satisfied by MUKUND Boswell Donna Lipid Screening on08/06/22.Satisfied by [employer], [employer] Electronic Signature on File Electronically Reviewed/Signed by: Nat Shankar DO Author Signature Dt/Tm:06/06/2023 12:46 PM Department of Family Medicine [facility] [place] Patient Care team information Care Team Personnel Name: JENNIFER Damon Tara Position: Nurse Pract - Family Med Member Role: Lifetime Relationship Address: Address: [address] [place] [address] [place] Name: DO Shankar Kristen M Position: Physician - Family Med Member Role: Primary Care Provider Address: Address: [address] [place] [address] [place] Name: Jennie Owen Todd Position: Pharmacist Schedule II Member Role: Pharmacy - Lifetime Address: Address: [address] [place] [id number] [place] Name: Jennie Singletary Michele C Position: Pharmacist Schedule II Member Role: Pharmacy - Lifetime Address: Address: [address] [address] [place] Name: Jennie Mei Francis Position: Pharmacist Schedule II Member Role: Pharmacy - Lifetime Address: Address: [facility] [address] [place] [address] [place] Name: Jennie Palmer Paul T Position: Pharmacist Schedule II Member Role: Pharmacy - Lifetime Address: Address: [facility] [address] [place] [address] [place] Name: WALESKA Conti Lynn Position: Physician Tutorial Laboratory Supervisor Exempt - Vasc Surg Member Role: Lifetime Relationship Address: Address: [address] [place] [address] Name: KRISTEL Peralta, Shaina Maria Position: Physician - Podiatry Member Role: Lifetime Relationship Address: Address: [address] [facility] [address] [place] [address] Care Team Related Persons Name: ORACIO SIERRA Address: home [address] [facility], [id number]
[2023-06-17] MEDS ORDERED: ALBUT/IPRATROP 3MG/0.5MG NEB 3 ML VIAL ONE ×2 (06:37→06:48)
[2023-06-17] MEDS ORDERED: ALBUT/IPRATROP 3MG/0.5MG NEB 3 ML VIAL NEB STA (06:39)
[2023-06-17] MEDS ORDERED: methylPREDNISolone 125 MG/2 ML VIAL ONE (06:48)
[2023-06-17] MEDS ORDERED: OPTIRAY 320 125ml IV ONE (07:03)
[2023-06-17] MEDS ORDERED: ALBUT/IPRATROP 3MG/0.5MG NEB 3 ML VIAL NEB ONE (07:03)
[2023-06-17 07:36] LABS: Basophils # (auto) 0.05 K/uL (0.00-0.20); Basophils % (auto) 0.4 %; Hematocrit (blood only) 41.4 % (37.0-47.0); Hemoglobin 13.5 g/dl (12.0-16.0); Immature Granulocytes # (auto) 0.05 K/uL (0.01-0.20); Immature Granulocytes % (auto) 0.4 %; Lymphocytes # (auto) 0.43 K/uL (1.20-3.40); Lymphocytes % (auto) 3.2 %; Mean Corpuscular Hemoglobin 32.1 pg (25.0-34.0); Mean Corpuscular Hgb Conc 32.6 g/dL (32.0-36.0); Mean Corpuscular Volume 98.3 fL (80.0-100.0); Mean Platelet Volume 10.6 fL (9.4-12.4); Monocytes # (auto) 0.88 K/uL (0.11-0.59); Monocytes % (auto) 6.6 %; Neutrophils # (auto) 11.91 K/uL (1.40-6.50); Neutrophils % (auto) 89.4 %; Platelet Count 212 K/uL (130-400); RDW Coefficient of Variation 13.7 % (11.5-14.5); RDW Standard Deviation 49.9 fL (36.4-46.3); Red Blood Count 4.21 M/uL (4.20-5.40); White Blood Count 13.32 K/ul (4.8-10.8)
[2023-06-17 07:47] LABS: iSTAT Arterial Blood Gas HCO3 32 meg/L (19-24); iSTAT Arterial Blood Gas pCO2 83 mmHg (35-46); iSTAT Arterial Blood Gas pO2 332 mmHg (80-95); iSTAT Carbon Dioxide 35 mmol/L (24-31); iSTAT Hematocrit 39 % (37-47); iSTAT Hemoglobin 13.3 g/dl (12.0-16.0); iSTAT Potassium 4.2 mmol/L (3.3-5.0); iSTAT Sodium 136 mmol/L (135-144)
[2023-06-17 07:52] LABS: Alanine Aminotransferase 45 U/L (7-52); Albumin Globulin Ratio 1.5 (0.9-2); Albumin Level 3.8 gm/dl (3.4-5.0); Alkaline Phosphatase 64 U/L (34-104); Anion Gap 2 (3-11); BUN Creatinine Ratio 10.5 (10-20); Bilirubin,Total 0.5 mg/dl (0.2-1.0); Blood Urea Nitrogen 11 mg/dl (6-23); Calcium 8.9 mg/dl (8.6-10.3); Carbon Dioxide 35 mmol/L (21-32); Chloride 98 mmol/L (98-107); Est GFR (Non-African American) 52.6 ml/min; Globulin 2.6 gm/dl (2.5-4.0); Glucose 83 mg/dl (70-99(Fasting)); Sodium 135 mmol/L (136-145); Total Protein 6.4 gm/dl (6.0-8.3)
[2023-06-17 07:59] LABS: Adenovirus PCR Not Detected (NotDetected); Bordetella parapertussis PCR Not Detected (NotDetected); Bordetella pertussis PCR Not Detected (NotDetected); Chlamydia pneumoniae PCR Not Detected (NotDetected); Coronavirus 229E PCR Not Detected (NotDetected); Coronavirus CoV-2 (COVID19)PCR Not Detected (NotDetected); Coronavirus HKU1 PCR Not Detected (NotDetected); Coronavirus NL63 PCR Not Detected (NotDetected); Coronavirus OC43PCR Not Detected (NotDetected); Human Metapneumovirus PCR Not Detected (NotDetected); Influenza A PCR Not Detected (NotDetected); Influenza B PCR Not Detected (NotDetected); Mycoplasma pneumoniae PCR Not Detected (NotDetected); Parainfluenza Virus 1 PCR Not Detected (NotDetected); Parainfluenza Virus 2 PCR Not Detected (NotDetected); Parainfluenza Virus 3 PCR Not Detected (NotDetected); Parainfluenza Virus 4 PCR Not Detected (NotDetected); Rhinovirus/Enterovirus PCR Not Detected (NotDetected)
[2023-06-17 08:04] LABS: Respiratory Syncytial VirusPCR DETECTED (NotDetected)
[2023-06-17] MEDS ORDERED: DOXYCYCLINE HYCLATE 100 MG in DEXTROSE 5% MINI-B 100 ML IV STA (08:04)
[2023-06-17] MEDS ORDERED: cefTRIAXone SODIUM 2,000 MG/50 ML BAG IV STA (08:04)
[2023-06-17] MEDS: SODIUM CHLORIDE 0.9% 1,000 ML IV SCH ×3 (08:05→15:52)
[2023-06-17] MEDS ORDERED: SODIUM CHLORIDE 0.9% 250 ML IV ONE ×3 (08:05→09:28)
--- NOTE | 2023-06-17 08:08 | CT Scan Report ---
CT angio chest PE protocol CLINICAL HISTORY: ams, sob, ?pe TECHNIQUE: Multidetector row helical CT of the chest was performed with angiographic protocol. Brown l and sagittal reformations were obtained. Coronal and sagittal MIPS were obtained from the axial paola a set and were submitted for review. Automated dose lowering techniques and/or adjustment according to patient size were utilized for this exam. Comparison: Comparison is made to CTA chest 09/07/2022 FINDINGS: Lungs and pleura: Diffuse centrilobular emphysema is seen most prominent in the upper lobes. No suspi cious pulmonary nodules. Heart and pericardium: Heart size is normal. No pericardial effusion. Vessels: No evidence of pulmonary embolism. Moderate atherosclerotic disease. Mediastinum and kristine: Subcentimeter lymph nodes are seen. Chest wall and lower neck: Unremarkable. Abdomen: Reflux of contrast into the IVC is seen which can be seen in heart failure. Bones: Degenerative changes in the thoracic spine. IMPRESSION: No acute abnormality and in particular no evidence of pulmonary embolus. Reflux of contrast into the IVC which can be seen in heart failure. ACT 112: Negative or not required by law. Electronically signed by: Will Sylvester M.D. 06/17/2023 8:06 AM
[2023-06-17 08:39] LABS: Troponin I High Sensitivity 96.4 pg/ml (0-14)
--- NOTE | 2023-06-17 08:48 | CT Scan Report ---
CT angio neck with con, CT angio head w con, CT head/brain wo con CLINICAL HISTORY: neuro deficit, acute stroke suspected TECHNIQUE: Contiguous axial CT images of the head were acquired from the base of the skull to the bin rhea without intravenous contrast administration. CT angiography of the head and neck was performed f ollowing intravenous administration of iodinated contrast. Coronal and sagittal MIPS were obtained fr om the axial data set and were submitted for review. Automated dose lowering techniques and/or adjus tment according to patient size were utilized for this examination. All measurements were calculated based on NASCET criteria. Comparison: None available at the time of this dictation. FINDINGS: CT head: There is no acute intracranial hemorrhage or evidence of acute territorial infarction. No sh ift of the midline structures, mass effect, or extra-axial abnormalities are shown. Biapical emphysema is seen. CTA Neck: A 3 vessel aortic arch is shown. There is no significant atherosclerotic plaque in the aor tic arch or the origins of the innominate, left common carotid, and left subclavian arteries. The co mmon carotid, external carotid, cervical segments of the internal carotid arteries, and the cervical segments of the vertebral arteries are patent without hemodynamically significant stenosis. The left vertebral artery is dominant. CTA Head: The anterior and posterior cerebral circulations are patent. No hemodynamically significan t stenosis, aneurysm, dissection, or arteriovenous malformation is shown. IMPRESSION: 1. No acute intracranial hemorrhage, evidence of acute territorial infarction, or other acute intrac ranial disease process. 2. No occlusion, hemodynamically significant stenosis, or dissection in the major cervical arteries. 3. No occlusion, hemodynamically significant stenosis, aneurysm, dissection, or arteriovenous malfor mation in the major intracranial arteries. Assessment of stenosis of the internal carotid arteries is based on NASCET criteria. ACT 112: Negative or not required by law. Electronically signed by: Will Sylvester M.D. 06/17/2023 8:46 AM
[2023-06-17 08:50] LABS: Potassium 4.2 mmol/L (3.5-5.1)
--- NOTE | 2023-06-17 08:55 | Emergency Department Note ---
Impression & Plan Acute respiratory failure with hypoxia and hypercarbia, COPD (chronic obstructive pulmonary disease), RSV infection, Elevated troponin ED Provider Note NAME: SCARLET SIERRA AGE: 73 SEX: Female INFORMANT: Patient, EMS, family ED PROVIDER(S): Ry Trevino MD CHIEF COMPLAINT: Unresponsive PLAN: Disposition: Admitted Outpatient prescription management: none Referral: None MEDICAL DECISION MAKING: Patient presented due to unresponsive episode. By history there was concern for possible respiratory infection given the 's recent "bronchitis". EMS had administered Solu-Medrol and DuoNeb with some improvement. Patient was very weak but symmetric. She was answering basic questions upon ED arrival. Given her medical history and reports of anticoagulation use there was concerns for possible neurologic as well as pulmonary issues. She was sent emergently for CT imaging. No ICH noted. Patient had hyperinflation and COPD findings on chest x-ray. Mild pneumonitis. She was given a second nebulizer treatment and then an hour-long DuoNeb was ordered. I did contact respiratory. An ABG was performed and the patient was placed on BiPAP. This was done to help with her work of breathing. The patient's mental status improved fairly well from presentation. She was answering questions and denied any pain. Her ABG revealed adequate oxygenation with the multiple nebulizer treatments however her CO2 was markedly elevated at 83. She was tolerating the BiPAP very well. Her blood pressure was mildly soft and two fluid boluses was administered gently. CT imaging of the chest revealed no pulmonary embolus but radiology did raise concerns about possible CHF with reflux of the contrast into the IVC. Patient's cardiac troponin was mildly elevated however no acute ischemia was seen on ECG. Patient had a leukocytosis on CBC. She had blood cultures performed. Lactate was within normal limits. Patient was empirically given Rocephin and doxycycline. Bio fire testing was performed and did reveal the presence of RSV infection. COVID testing negative. Family was updated. Further management in the hospital will be necessary due to the hypercarbic respiratory failure which is likely secondary to her RSV and underlying COPD. Consultation was made with the hospitalist service Care/management discussed with: Discussed with geophysical manager. Discussed with EMS. Level of care consideration(s): After review of the information above and other included data, I feel the patient requires escalation of care to admission Triage Nursing notes: reviewed and agree them. Vital Signs: reviewed and remarkable for tachypnea Additional History obtained from: Family. was dealing with bronchitis recently. Patient was feeling under the weather yesterday per the son Chronic Medical/Social Conditions affecting care: COPD Prior/ Outside/ External records reviewed: none Differential Diagnosis: Infection, hypoglycemia, electrolyte abnormalities, overdose, toxicologic, cardiac sources, intracerebral event, neurologic, trauma, as well as other pathologies. Diagnostics, independently interpreted by me: ECG: Twelve-lead ECG reveals sinus rhythm with PVCs at [address] no ST elevation. Cardiac Monitoring: Cardiac monitoring ordered by me: The patient was placed on continuous cardiac monitoring and observed. It revealed a sinus rhythm at 94 bpm Medical decision rules: none Imaging studies: Chest x-ray reveals findings consistent with COPD and mild pneumonitis. No pneumothorax. Head CT: A noncontrast CT scan of the head was performed and was negative for tumor, fracture, intracranial hemorrhage, or other acute pathology. CT scan of the chest reveals no evidence of pulmonary embolism. CT and CT angiography of the head and neck reveal no acute occlusion HPI: 73 year old Female arrives for evaluation of altered mental. This started this morning per the and is improving. The family also notes the following associated symptoms, feeling under the weather yesterday. Per the he had bronchitis this week. Patient does have a history of COPD. EMS was summoned as the patient was unresponsive for the family. EMS noted that she was very wheezing and not moving much air. They applied a nebulizer treatment and gave Solu-Medrol. They considered CPAP however the patient had somewhat altered mental status and they were concerned. Patient's mental status did improve and oxygenation was 100% after nebulizer treatment. Upon arrival the patient is answering basic questions and moving arms and legs symmetrically but is generally weak. Current pain is rated as 0/10. Patient denies headache, chest pain, abdominal pain, vomiting. No reported fevers. History is limited secondary to medical acuity . PAST MEDICAL HISTORY: See Below, COPD PAST SURGICAL HISTORY: See Below, SOCIAL HISTORY: See Below, HOME MEDICATIONS: See Below ALLERGIES: See Below VITALS: See Below PHYSICAL EXAMINATION: GENERAL: Awake, semialert, ill appearing, in mild distress HENT: Normocephalic, atraumatic. Oropharynx unremarkable. EYES: Normal conjunctiva. Sclera non-icteric. NECK: Inspection normal. Non-tender. Supple. No nuchal rigidity. FROM. No masses. RESPIRATORY: Diffuse scattered wheezes. No rales. Increased respiratory effort. CARDIAC: Borderline tachycardic rate. Normal rhythm. No murmurs. No rubs. Extremities warm and well perfused. Pulses equal. No JVD. GI: Soft, non-distended. No tenderness to palpation. No rebound or guarding. No masses. RECTAL: Deferred. MUSCULOSKELETAL: Atraumatic. Chest examination reveals no tenderness. The back is symmetrical on inspection without obvious abnormality. There is no CVA tenderness to palpation. No joint edema. LOWER EXTREMITIES: Calves are equal size bilaterally and non-tender. No edema. Chronic venous discoloration. Small ulceration noted on the medial right lower vanegas without signs of infection. NEURO: Altered sensorium. No focal sensory or motor deficits noted. SKIN: No rash or jaundice noted. PROCEDURES: none CRITICAL CARE: I have personally spent greater than 50 minutes of critical care time in the direct management of this patient. This includes bedside care, interpretation of diagnostic studies, and testing, discussion with consultants, patient, and family members, and other required patient management activities. These minutes are in excess of all separately billable procedures. 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 Hx of blood clots Bronchitis Shortness of breath Chronic rhinitis Chronic sinusitis Laryngopharyngeal reflux Nontoxic multinodular goiter Pyoderma Sleep disorder Syncopal episodes Multiple lung nodules on CT History of nicotine dependence COPD (chronic obstructive pulmonary disease) History of hypothyroidism History of gastroesophageal reflux (GERD) Factor 5 Leiden mutation, heterozygous Surgical History History of tooth extraction History of cataract surgery History of cholecystectomy Hx of colonoscopy H/O melanoma excision History of foot surgery History of breast biopsy History of thyroid surgery Family History Unknown Hypertension Diabetes Mother Cancer Breast cancer Sister Cancer Breast cancer Factor V Leiden Other Family history of bleeding disorder No family history of adverse response to anesthesia Denies family history of Heart disease Stroke Asthma Social History Smoking Status: Current every day smoker Tobacco Type: Cigarettes Cigarettes Per Day: 11-12 cigs per day; Second Hand Exposure: Yes; Do You Dip or Chew Tobacco: No; Tobacco Cessation Education Requested by Patient: No Hx Alcohol Use: Yes Alcohol type: beer Hx Substance Use: No Preferred Language: Surinamese Communication Ability: Effective Windows Systems Architect Required: No Beliefs That Will Affect Care: None marital status: Current Living Situation: Spouse current occupational status: retired current occupation: Retired from [employer] How many Children do You have: 1 Other Information That Helps Us Care for You: No Feels Safe at Home: Yes Safety Concerns: Feels Safe At This Time Assistive Devices: Denture - Upper, Denture - Lower, Glasses and Oxygen - Continuous Allergies Allergies Allergy/AdvReac Type Severity Reaction Status Date / Time adhesive tape Allergy Intermediate Rash Verified 05/28/23 13:15 bacitracin Allergy Mild RASH Verified 05/28/23 13:15 latex Allergy Mild RASH Verified 05/28/23 13:15 neomycin Allergy Mild RASH Verified 05/28/23 13:15 polymyxin B Allergy Mild RASH Verified 05/28/23 13:15 levofloxacin [From Levaquin] AdvReac Severe N/V, dizzy Verified 05/28/23 13:15 Home Meds Home Medications Medication Instructions Recorded Confirmed albuterol sulfate 2.5 mg/3 mL 2.5 mg inhalation .COMPLEX PRN sob 02/19/19 06/17/23 (0.083 %) solution for nebulization lorazepam 1 mg tablet 1 mg PO BID 02/19/19 06/17/23 levothyroxine 25 mcg tablet See Rx Instructions PO .COMPLEX 09/01/19 06/17/23 diphenhydramine 25 1 tab PO HS 10/17/20 06/17/23 mg-acetaminophen 500 mg tablet melatonin 10 mg tablet 10 mg PO HS PRN Sleep 10/17/20 06/17/23 albuterol sulfate 90 mcg/actuation 2 puff inhalation Q6H PRN 09/10/22 06/17/23 aerosol inhaler shortness of breath or wheezing warfarin 3 mg tablet 0 mg PO DAILY 12/17/22 06/17/23 Previous Rx's Medication Instructions Recorded Oxygen Home #2 L 01/25/22 Portable Oxygen #1 ea 01/25/22 budesonide-formoterol HFA 160 2 puff inhalation BID #10.2 grams 09/10/22 mcg-4.5 mcg/actuation aerosol inhaler tiotropium bromide 2.5 2 inh inhalation QAM #3 Inhalers 09/10/22 mcg/actuation mist for inhalation (Spiriva Respimat) Portable Oxygen #1 ea 09/12/22 lubiprostone 8 mcg capsule 8 mcg PO BID #60 caps 12/06/22 (Amitiza) omeprazole 20 mg capsule,delayed 20 mg PO DAILY #30 caps 12/26/22 release clonidine HCl 0.1 mg tablet 0.1 mg PO BID PRN hypertensive 04/23/23 emergency #30 tabs metoprolol succinate 25 mg 25 mg PO TID #270 tabs 05/07/23 tablet,extended release 24 hr Results & Data (ED) Vital Signs Vital Signs - 24 hr 06/17/23 06:45 06/17/23 07:00 06/17/23 07:05 Pulse Rate 95 H 96 H 94 H Pulse Rate from SpO2 Sensor Pulse Rhythm Regular Pulse Strength Normal Respiratory Rate 30 H 24 28 H Respiratory Effort / Characteristics Non-Labored Spontaneous Spontaneous Respiratory Depth Normal Normal Respiratory Pattern Regular Regular Blood Pressure Blood Pressure Mean Pulse Oximetry 98 Oxygen Delivery Method Non-rebreather Fraction of Inspired Oxygen 21 Sepsis Recent Fever Within 48 Hours No Sepsis New/Unexplained Change in Mental Status Yes Sepsis Action Taken by Nursing No Action Required 06/17/23 07:15 06/17/23 07:16 06/17/23 07:16 Pulse Rate 94 H 93 H Pulse Rate from SpO2 Sensor 94 H 93 H Pulse Rhythm Pulse Strength Respiratory Rate 30 H 27 H Respiratory Effort / Characteristics Respiratory Depth Respiratory Pattern Blood Pressure 93/64 L Blood Pressure Mean 74 Pulse Oximetry 100 100 Oxygen Delivery Method Fraction of Inspired Oxygen Sepsis Recent Fever Within 48 Hours Sepsis New/Unexplained Change in Mental Status Sepsis Action Taken by Nursing 06/17/23 07:21 06/17/23 07:30 06/17/23 07:30 Pulse Rate 93 H 94 H Pulse Rate from SpO2 Sensor 94 H Pulse Rhythm Pulse Strength Respiratory Rate 31 H Respiratory Effort / Characteristics Respiratory Depth Respiratory Pattern Blood Pressure 92/61 L Blood Pressure Mean 73 Pulse Oximetry 100 Oxygen Delivery Method Fraction of Inspired Oxygen Sepsis Recent Fever Within 48 Hours Sepsis New/Unexplained Change in Mental Status Sepsis Action Taken by Nursing 06/17/23 07:45 06/17/23 07:45 06/17/23 08:00 Pulse Rate 93 H 87 Pulse Rate from SpO2 Sensor 91 H Pulse Rhythm Pulse Strength Respiratory Rate 31 H 24 Respiratory Effort / Characteristics Respiratory Depth Respiratory Pattern Blood Pressure 87/47 L Blood Pressure Mean 65 Pulse Oximetry 88 L Oxygen Delivery Method Fraction of Inspired Oxygen Sepsis Recent Fever Within 48 Hours Sepsis New/Unexplained Change in Mental Status Sepsis Action Taken by Nursing 06/17/23 08:00 06/17/23 08:00 06/17/23 08:12 Pulse Rate 86 Pulse Rate from SpO2 Sensor 86 Pulse Rhythm Pulse Strength Respiratory Rate 22 Respiratory Effort / Characteristics Respiratory Depth Respiratory Pattern Blood Pressure 81/48 L 81/48 L Blood Pressure Mean 63 63 Pulse Oximetry 100 Oxygen Delivery Method Fraction of Inspired Oxygen Sepsis Recent Fever Within 48 Hours Sepsis New/Unexplained Change in Mental Status Sepsis Action Taken by Nursing 06/17/23 08:12 06/17/23 08:15 06/17/23 08:16 Pulse Rate 88 Pulse Rate from SpO2 Sensor 86 Pulse Rhythm Pulse Strength Respiratory Rate 26 H Respiratory Effort / Characteristics Respiratory Depth Respiratory Pattern Blood Pressure 80/49 L 76/39 L Blood Pressure Mean 61 66 Pulse Oximetry 86 L Oxygen Delivery Method Fraction of Inspired Oxygen Sepsis Recent Fever Within 48 Hours Sepsis New/Unexplained Change in Mental Status Sepsis Action Taken by Nursing 06/17/23 08:16 06/17/23 08:26 06/17/23 08:26 Pulse Rate 88 90 Pulse Rate from SpO2 Sensor 90 Pulse Rhythm Pulse Strength Respiratory Rate 26 H 25 H Respiratory Effort / Characteristics Respiratory Depth Respiratory Pattern Blood Pressure 88/56 L Blood Pressure Mean 61 Pulse Oximetry 100 Oxygen Delivery Method Fraction of Inspired Oxygen Sepsis Recent Fever Within 48 Hours Sepsis New/Unexplained Change in Mental Status Sepsis Action Taken by Nursing 06/17/23 08:30 06/17/23 08:30 06/17/23 08:45 Pulse Rate 91 H Pulse Rate from SpO2 Sensor 91 H Pulse Rhythm Pulse Strength Respiratory Rate 26 H Respiratory Effort / Characteristics Respiratory Depth Respiratory Pattern Blood Pressure 79/58 L 91/50 L Blood Pressure Mean 63 71 Pulse Oximetry 100 Oxygen Delivery Method Fraction of Inspired Oxygen Sepsis Recent Fever Within 48 Hours Sepsis New/Unexplained Change in Mental Status Sepsis Action Taken by Nursing 06/17/23 08:45 06/17/23 09:00 06/17/23 09:00 Pulse Rate 95 H 91 H Pulse Rate from SpO2 Sensor 95 H 90 Pulse Rhythm Pulse Strength Respiratory Rate 27 H 25 H Respiratory Effort / Characteristics Respiratory Depth Respiratory Pattern Blood Pressure 74/51 L Blood Pressure Mean 56 Pulse Oximetry 97 99 Oxygen Delivery Method Fraction of Inspired Oxygen Sepsis Recent Fever Within 48 Hours Sepsis New/Unexplained Change in Mental Status Sepsis Action Taken by Nursing Laboratory Data 06/17/23 07:19 06/17/23 07:54 Lab Results 06/17/23 06/17/23 06/17/23 Range/Units 07:00 07:19 07:23 WBC 13.32 H (4.8-10.8) K/ul RBC 4.21 (4.20-5.40) M/uL Hgb 13.5 (12.0-16.0) g/dl POC Hgb 13.3 (12.0-16.0) g/dl Hct 41.4 (37.0-47.0) % POC Hct 39 (37-47) % MCV 98.3 (80.0-100.0) fL MCH 32.1 (25.0-34.0) pg MCHC 32.6 (32.0-36.0) g/dL RDW Std Deviation 49.9 H (36.4-46.3) fL RDW Coeff of Manoj 13.7 (11.5-14.5) % Plt Count 212 (130-400) K/uL MPV 10.6 (9.4-12.4) fL Immature Gran % (Auto) 0.4 % Neut % (Auto) 89.4 % Lymph % (Auto) 3.2 % [place] % (Auto) 6.6 % Eos % (Auto) 0.0 % Baso % (Auto) 0.4 % Neut # (Auto) 11.91 H (1.40-6.50) K/uL Lymph # (Auto) 0.43 L (1.20-3.40) K/uL [place] # (Auto) 0.88 H (0.11-0.59) K/uL Eos # (Auto) 0.00 (0.00-0.50) K/uL Baso # (Auto) 0.05 (0.00-0.20) K/uL Immature Gran # (Auto) 0.05 (0.01-0.20) K/uL PT Cancelled INR Cancelled APTT Cancelled PTT Ratio Cancelled POC pH 7.20 L (7.35-7.45) POC pCO2 83 H (35-46) mmHg POC pO2 332 H (80-95) mmHg POC HCO3 32 H (19-24) oksana/L POC Total CO2 35 H (24-31) mmol/L POC Base Excess 4.0 H (-9-1.8) oksana/L POC ABG O2 Sat 100.0 H (90-95) % POC Sodium 136 (135-144) mmol/L Sodium 135 L (136-145) mmol/L POC Potassium 4.2 (3.3-5.0) mmol/L Potassium TNP Chloride 98 (98-107) mmol/L Carbon Dioxide 35 H (21-32) mmol/L Anion Gap 2 L (3-11) BUN 11 (6-23) mg/dl Creatinine 1.05 (0.6-1.2) mg/dl Est Cr Clr Drug Dosing Not Reportable Est GFR ( Amer) 61.0 ml/min Est GFR (Non-Af Amer) 52.6 ml/min BUN/Creatinine Ratio 10.5 (10-20) Glucose 83 (70-99(Fasting)) mg/dl Lactate 1.4 (0.4-2.0) mmol/L Calcium 8.9 (8.6-10.3) mg/dl Magnesium 2.0 (1.7-2.4) mg/dl Total Bilirubin 0.5 (0.2-1.0) mg/dl AST TNP ALT 45 (7-52) U/L Alkaline Phosphatase 64 (34-104) U/L Troponin I High Sens 96.4 H* (0-14) pg/ml Total Protein 6.4 (6.0-8.3) gm/dl Albumin 3.8 (3.4-5.0) gm/dl Globulin 2.6 (2.5-4.0) gm/dl Albumin/Globulin Ratio 1.5 (0.9-2) Procalcitonin Cancelled Urine Color Urine Appearance (Clear) Urine pH (4.5-7.5) Ur Specific [place] (1.000-1.030) Urine Protein (Negative) Urine Glucose (UA) (Negative) Urine Ketones (Negative) Urine Blood (Negative) Urine Nitrite (Negative) Urine Bilirubin (Negative) Urine Urobilinogen (Negative) Ur Leukocyte Esterase (Negative) Urine WBC (Auto) (0-5) /hpf Urine RBC (Auto) (0-4) /hpf U Hyaline Cast (Auto) (0-5) /lpf U Epithel Cells (Auto) (0-5) /lpf Urine Bacteria (Auto) (Negative) Urine Mucus (None Prsent) Adenovirus (PCR) Not Detected (NotDetected) B. pertussis DNA (PCR) Not Detected (NotDetected) B.parapertussis DNA PCR Not Detected (NotDetected) C. pneumoniae DNA (PCR) Not Detected (NotDetected) Coronavirus OC43 (PCR) Not Detected (NotDetected) Coronavirus HKU1 (PCR) Not Detected (NotDetected) Coronavirus 229E (PCR) Not Detected (NotDetected) SARS-CoV-2 (PCR) Not Detected (NotDetected) Coronavirus NL63 (PCR) Not Detected (NotDetected) Human Metapneumovir PCR Not Detected (NotDetected) Influenza Type A (PCR) Not Detected (NotDetected) Influenza Type B (PCR) Not Detected (NotDetected) M. pneumoniae (PCR) Not Detected (NotDetected) Parainfluenza 1 (PCR) Not Detected (NotDetected) Parainfluenza 2 (PCR) Not Detected (NotDetected) Parainfluenza 3 (PCR) Not Detected (NotDetected) Parainfluenza 4 (PCR) Not Detected (NotDetected) RSV (PCR) DETECTED A* (NotDetected) Entero/Rhino (PCR) Not Detected (NotDetected) Blood Type A Positive Antibody Screen NEGATIVE 06/17/23 06/17/23 Range/Units 07:54 08:45 WBC (4.8-10.8) K/ul RBC (4.20-5.40) M/uL Hgb (12.0-16.0) g/dl POC Hgb (12.0-16.0) g/dl Hct (37.0-47.0) % POC Hct (37-47) % MCV (80.0-100.0) fL MCH (25.0-34.0) pg MCHC (32.0-36.0) g/dL RDW Std Deviation (36.4-46.3) fL RDW Coeff of Manoj (11.5-14.5) % Plt Count (130-400) K/uL MPV (9.4-12.4) fL Immature Gran % (Auto) % Neut % (Auto) % Lymph % (Auto) % [place] % (Auto) % Eos % (Auto) % Baso % (Auto) % Neut # (Auto) (1.40-6.50) K/uL Lymph # (Auto) (1.20-3.40) K/uL [place] # (Auto) (0.11-0.59) K/uL Eos # (Auto) (0.00-0.50) K/uL Baso # (Auto) (0.00-0.20) K/uL Immature Gran # (Auto) (0.01-0.20) K/uL PT 40.4 H INR 4.0 H APTT 42 H PTT Ratio 1.5 POC pH (7.35-7.45) POC pCO2 (35-46) mmHg POC pO2 (80-95) mmHg POC HCO3 (19-24) oksana/L POC Total CO2 (24-31) mmol/L POC Base Excess (-9-1.8) oksana/L POC ABG O2 Sat (90-95) % POC Sodium (135-144) mmol/L Sodium (136-145) mmol/L POC Potassium (3.3-5.0) mmol/L Potassium 4.2 Chloride (98-107) mmol/L Carbon Dioxide (21-32) mmol/L Anion Gap (3-11) BUN (6-23) mg/dl Creatinine (0.6-1.2) mg/dl Est Cr Clr Drug Dosing Est GFR ( Amer) ml/min Est GFR (Non-Af Amer) ml/min BUN/Creatinine Ratio (10-20) Glucose (70-99(Fasting)) mg/dl Lactate (0.4-2.0) mmol/L Calcium (8.6-10.3) mg/dl Magnesium (1.7-2.4) mg/dl Total Bilirubin (0.2-1.0) mg/dl AST 47 H ALT (7-52) U/L Alkaline Phosphatase (34-104) U/L Troponin I High Sens (0-14) pg/ml Total Protein (6.0-8.3) gm/dl Albumin (3.4-5.0) gm/dl Globulin (2.5-4.0) gm/dl Albumin/Globulin Ratio (0.9-2) Procalcitonin 1.06 H Urine Color Yellow Urine Appearance Clear (Clear) Urine pH 5.5 (4.5-7.5) Ur Specific [place] > 1.045 H (1.000-1.030) Urine Protein 1+ H (Negative) Urine Glucose (UA) 2+ H (Negative) Urine Ketones Negative (Negative) Urine Blood 1+ H (Negative) Urine Nitrite Negative (Negative) Urine Bilirubin Negative (Negative) Urine Urobilinogen Negative (Negative) Ur Leukocyte Esterase Negative (Negative) Urine WBC (Auto) 1-5 (0-5) /hpf Urine RBC (Auto) 5-10 H (0-4) /hpf U Hyaline Cast (Auto) 1-5 (0-5) /lpf U Epithel Cells (Auto) 20-30 H (0-5) /lpf Urine Bacteria (Auto) Negative (Negative) Urine Mucus Present A (None Prsent) Adenovirus (PCR) (NotDetected) B. pertussis DNA (PCR) (NotDetected) B.parapertussis DNA PCR (NotDetected) C. pneumoniae DNA (PCR) (NotDetected) Coronavirus OC43 (PCR) (NotDetected) Coronavirus HKU1 (PCR) (NotDetected) Coronavirus 229E (PCR) (NotDetected) SARS-CoV-2 (PCR) (NotDetected) Coronavirus NL63 (PCR) (NotDetected) Human Metapneumovir PCR (NotDetected) Influenza Type A (PCR) (NotDetected) Influenza Type B (PCR) (NotDetected) M. pneumoniae (PCR) (NotDetected) Parainfluenza 1 (PCR) (NotDetected) Parainfluenza 2 (PCR) (NotDetected) Parainfluenza 3 (PCR) (NotDetected) Parainfluenza 4 (PCR) (NotDetected) RSV (PCR) (NotDetected) Entero/Rhino (PCR) (NotDetected) Blood Type Antibody Screen Administered Medications Albuterol (Albut/Ipratrop 3mg/0.5mg Neb 3 Ml Vial) 3 ml NEB Q4R JANET; Protocol Stop: 06/18/23 11:11 Last Admin: 06/17/23 14:52 Dose: 3 ml Documented By: Admin: 06/17/23 11:54 Dose: 3 ml Documented By: ABRl Sodium Chloride (Nss) 1,000 mls @ 80 mls/hr IV .[id number] [facility] Stop: 07/17/23 06:44 Last Infusion: 06/17/23 15:52 Dose: Infused Documented By: Admin: 06/17/23 15:52 Dose: 80 mls/hr Documented By: Infusion: 06/17/23 14:32 Dose: 80 mls/hr Documented By: Infusion: 06/17/23 12:37 Dose: 80 mls/hr Documented By: Admin: 06/17/23 09:56 Dose: 50 mls/hr Documented By: Infusion: 06/17/23 09:56 Dose: Infused Documented By: Admin: 06/17/23 08:05 Dose: 50 mls/hr Documented By: DENNIS Pantoprazole Sodium 40 mg/ (Syringe) 10 mls @ 5 mls/min IV DAILY@1100 [facility] Stop: 07/17/23 11:11 Last Admin: 06/17/23 12:37 Dose: 5 mls/min Documented By: CMV Levothyroxine Sodium (Levothyroxine Sodium 25 Mcg Tablet) 37.5 mcg PO DAILYBB [facility] Stop: 07/17/23 11:11 Last Admin: 06/17/23 14:31 Dose: Not Given Documented By: CMV Discontinued Medications Albuterol (Albut/Ipratrop 3mg/0.5mg Neb 3 Ml Vial) 3 ml NEB NOW STA; Protocol Stop: 06/17/23 06:40 Last Admin: 06/17/23 08:10 Dose: 3 ml Documented By: NDW Albuterol (Albut/Ipratrop 3mg/0.5mg Neb 3 Ml Vial) 12 ml NEB ONE ONE; Protocol Stop: 06/17/23 07:04 Last Admin: 06/17/23 08:09 Dose: 12 ml Documented By: DENNIS Ceftriaxone Sodium (Rocephin) 2,000 mg in 50 mls @ 100 mls/hr IV NOW STA Stop: 06/17/23 08:33 Last Infusion: 06/17/23 08:54 Dose: Infused Documented By: Admin: 06/17/23 08:09 Dose: 100 mls/hr Documented By: YVANW Doxycycline Hyclate 100 mg/ (Dextrose) 100 mls @ 50 mls/hr IV NOW STA Stop: 06/17/23 10:03 Last Infusion: 06/17/23 12:28 Dose: Infused Documented By: Admin: 06/17/23 08:54 Dose: 50 mls/hr Documented By: DENNIS Sodium Chloride (Nss) 250 mls @ 999 mls/hr IV .Q16M ONE Stop: 06/17/23 08:20 Last Infusion: 06/17/23 08:55 Dose: Infused Documented By: Admin: 06/17/23 08:15 Dose: 999 mls/hr Documented By: DENNIS Sodium Chloride (Nss) 250 mls @ 999 mls/hr IV .Q16M ONE Stop: 06/17/23 09:43 Last Infusion: 06/17/23 09:57 Dose: Infused Documented By: Admin: 06/17/23 09:15 Dose: 999 mls/hr Documented By: DENNIS Sodium Chloride (Nss) 250 mls @ 999 mls/hr IV .Q16M ONE Stop: 06/17/23 09:43 Last Infusion: 06/17/23 09:57 Dose: Infused Documented By: Admin: 06/17/23 09:40 Dose: 999 mls/hr Documented By: DENNIS Ioversol (Optiray 320 125ml) 119 ml IV ONCE ONE Stop: 06/17/23 07:04 Last Admin: 06/17/23 07:03 Dose: 119 ml Documented By: EDOUARD Imaging Data Radiologist's Impression: Head CT 06/17/23 06:37 CT angio neck with con, CT angio head w con, CT head/brain wo con CLINICAL HISTORY: neuro deficit, acute stroke suspected TECHNIQUE: Contiguous axial CT images of the head were acquired from the base of the skull to the vertex without intravenous contrast administration. CT angiography of the head and neck was performed following intravenous administration of iodinated contrast. Coronal and sagittal MIPS were obtained from the axial data set and were submitted for review. Automated dose lowering techniques and/or adjustment according to patient size were utilized for this examination. All measurements were calculated based on NASCET criteria. Comparison: None available at the time of this dictation. FINDINGS: CT head: There is no acute intracranial hemorrhage or evidence of acute territorial infarction. No shift of the midline structures, mass effect, or extra-axial abnormalities are shown. Biapical emphysema is seen. CTA Neck: A 3 vessel aortic arch is shown. There is no significant atherosclerotic plaque in the aortic arch or the origins of the innominate, left common carotid, and left subclavian arteries. The common carotid, external carotid, cervical segments of the internal carotid arteries, and the cervical segments of the vertebral arteries are patent without hemodynamically significant stenosis. The left vertebral artery is dominant. CTA Head: The anterior and posterior cerebral circulations are patent. No hemodynamically significant stenosis, aneurysm, dissection, or arteriovenous malformation is shown. IMPRESSION: 1. No acute intracranial hemorrhage, evidence of acute territorial infarction, or other acute intracranial disease process. 2. No occlusion, hemodynamically significant stenosis, or dissection in the major cervical arteries. 3. No occlusion, hemodynamically significant stenosis, aneurysm, dissection, or arteriovenous malformation in the major intracranial arteries. Assessment of stenosis of the internal carotid arteries is based on NASCET criteria. ACT 112: Negative or not required by law. Electronically signed by: Will Sylvester M.D. 06/17/2023 8:46 AM Chest X-Ray 06/17/23 06:38 XR chest 1V portable CLINICAL HISTORY: neuro deficit, acute stroke suspected TECHNIQUE: Single frontal radiograph of the chest was obtained. Comparison: Comparison is made to chest radiograph 01/25/2022 FINDINGS: No lines and tubes are seen. The cardiomediastinal silhouette is normal. The lungs are clear. No evidence of pleural effusion or pneumothorax. IMPRESSION: No acute chest disease. ACT 112: Negative or not required by law. Electronically signed by: Will Sylvester M.D. 06/17/2023 8:54 AM Head CTA 06/17/23 06:38 CT angio neck with con, CT angio head w con, CT head/brain wo con CLINICAL HISTORY: neuro deficit, acute stroke suspected TECHNIQUE: Contiguous axial CT images of the head were acquired from the base of the skull to the vertex without intravenous contrast administration. CT angiography of the head and neck was performed following intravenous administration of iodinated contrast. Coronal and sagittal MIPS were obtained from the axial data set and were submitted for review. Automated dose lowering techniques and/or adjustment according to patient size were utilized for this examination. All measurements were calculated based on NASCET criteria. Comparison: None available at the time of this dictation. FINDINGS: CT head: There is no acute intracranial hemorrhage or evidence of acute territorial infarction. No shift of the midline structures, mass effect, or extra-axial abnormalities are shown. Biapical emphysema is seen. CTA Neck: A 3 vessel aortic arch is shown. There is no significant atherosclerotic plaque in the aortic arch or the origins of the innominate, left common carotid, and left subclavian arteries. The common carotid, external carotid, cervical segments of the internal carotid arteries, and the cervical segments of the vertebral arteries are patent without hemodynamically significant stenosis. The left vertebral artery is dominant. CTA Head: The anterior and posterior cerebral circulations are patent. No hemodynamically significant stenosis, aneurysm, dissection, or arteriovenous malformation is shown. IMPRESSION: 1. No acute intracranial hemorrhage, evidence of acute territorial infarction, or other acute intracranial disease process. 2. No occlusion, hemodynamically significant stenosis, or dissection in the major cervical arteries. 3. No occlusion, hemodynamically significant stenosis, aneurysm, dissection, or arteriovenous malformation in the major intracranial arteries. Assessment of stenosis of the internal carotid arteries is based on NASCET criteria. ACT 112: Negative or not required by law. Electronically signed by: Will Sylvester M.D. 06/17/2023 8:46 AM Neck CTA 06/17/23 06:38 CT angio neck with con, CT angio head w con, CT head/brain wo con CLINICAL HISTORY: neuro deficit, acute stroke suspected TECHNIQUE: Contiguous axial CT images of the head were acquired from the base of the skull to the vertex without intravenous contrast administration. CT angiography of the head and neck was performed following intravenous administration of iodinated contrast. Coronal and sagittal MIPS were obtained from the axial data set and were submitted for review. Automated dose lowering techniques and/or adjustment according to patient size were utilized for this examination. All measurements were calculated based on NASCET criteria. Comparison: None available at the time of this dictation. FINDINGS: CT head: There is no acute intracranial hemorrhage or evidence of acute territorial infarction. No shift of the midline structures, mass effect, or extra-axial abnormalities are shown. Biapical emphysema is seen. CTA Neck: A 3 vessel aortic arch is shown. There is no significant atherosclerotic plaque in the aortic arch or the origins of the innominate, left common carotid, and left subclavian arteries. The common carotid, external carotid, cervical segments of the internal carotid arteries, and the cervical segments of the vertebral arteries are patent without hemodynamically significant stenosis. The left vertebral artery is dominant. CTA Head: The anterior and posterior cerebral circulations are patent. No hemodynamically significant stenosis, aneurysm, dissection, or arteriovenous malformation is shown. IMPRESSION: 1. No acute intracranial hemorrhage, evidence of acute territorial infarction, or other acute intracranial disease process. 2. No occlusion, hemodynamically significant stenosis, or dissection in the major cervical arteries. 3. No occlusion, hemodynamically significant stenosis, aneurysm, dissection, or arteriovenous malformation in the major intracranial arteries. Assessment of stenosis of the internal carotid arteries is based on NASCET criteria. ACT 112: Negative or not required by law. Electronically signed by: Will Sylvester M.D. 06/17/2023 8:46 AM Chest CTA 06/17/23 06:43 CT angio chest PE protocol CLINICAL HISTORY: ams, sob, ?pe TECHNIQUE: Multidetector row helical CT of the chest was performed with angiographic protocol. Coronal and sagittal reformations were obtained. Coronal and sagittal MIPS were obtained from the axial data set and were submitted for review. Automated dose lowering techniques and/or adjustment according to patient size were utilized for this exam. Comparison: Comparison is made to CTA chest 09/07/2022 FINDINGS: Lungs and pleura: Diffuse centrilobular emphysema is seen most prominent in the upper lobes. No suspicious pulmonary nodules. Heart and pericardium: Heart size is normal. No pericardial effusion. Vessels: No evidence of pulmonary embolism. Moderate atherosclerotic disease. Mediastinum and kristine: Subcentimeter lymph nodes are seen. Chest wall and lower neck: Unremarkable. Abdomen: Reflux of contrast into the IVC is seen which can be seen in heart failure. Bones: Degenerative changes in the thoracic spine. IMPRESSION: No acute abnormality and in particular no evidence of pulmonary embolus. Reflux of contrast into the IVC which can be seen in heart failure. ACT 112: Negative or not required by law. Electronically signed by: Will Sylvester M.D. 06/17/2023 8:06 AM Discharge Plan Visit Data Chief Complaint: Unresponsive Stated Complaint: UNRESPONSIVE/RESPIRATORY ED Provider: Ry Trevino Discharge Problem: Acute respiratory failure with hypoxia and hypercarbia, COPD (chronic obstructive pulmonary disease), RSV infection, Elevated troponin Patient Disposition: Admitted As Inpatient Discharge Instructions Interventions: ED Discharge Assessment Last Done: 06/17/23 10:40
[2023-06-17 09:08] LABS: Appearance Urine Clear (Clear); Bacteria Urine Automated Negative (Negative); Bilirubin Urine Negative (Negative); Blood Urine 1+ (Negative); Color Urine Yellow; Epithelial Cell Urine Auto 20-30 /lpf (0-5); Glucose Urine UA 2+ (Negative); Ketones Urine Negative (Negative); Leukocyte Esterase Urine Negative (Negative); Nitrite Urine Negative (Negative); Protein Urine 1+ (Negative); Specific Gravity Urine > 1.045 (1.000-1.030); Urobilinogen Urine Negative (Negative); pH Urine 5.5 (4.5-7.5)
[2023-06-17 09:23] LABS: Partial Thromboplastin Ratio 1.5; Partial Thromboplastin Time 42 Seconds (21-31); Prothrombin Time 40.4 Seconds (9.0-12.0)
[2023-06-17 09:45] LABS: Mucus Urine Present (None Prsent)
--- NOTE | 2023-06-17 10:29 | History & Physical Report ---
Date of Service June 17, 2023 Assessment & Plan (1) Acute respiratory failure with hypoxia and hypercarbia: Plan: 73 F with PMH chronic hypoxic respiratory failure on home oxygen, COPD, FVL mutation, hypothyroidism, and GERD, who presented to emergency room via ambulance after being found unconscious. Initially requiring BiPAP, but now stable and saturating well on oxygen via nasal cannula. Admitted for management of acute on chronic hypoxic and hypercarbic respiratory failure in the setting of COPD, RSV infection. Acute Respiratory Failure with Hypoxia and Hypercarbia/RSV Infection/COPD Exacerbation -Given hypoxia and hypercarbia, presence of acute inflammatory markers, suspect mixed infectious/inflammatory etiology from COPD, RSV. -Received Solu-Medrol, DuoNeb in EMS prior to arrival. S/p doxycycline, ceftriaxone in the ED. -Initially on BiPAP but now saturating well on oxygen via 3 L nasal cannula. * Admit to PCU given hemodynamic instability. Remain n.p.o. * Azithromycin 250 mg daily x 4 days starting 06/18/2023 * Supplemental oxygen via nasal cannula (up to BiPAP if needed) * DuoNebs every 4 hours x 24 hours, then as needed * Continue home COPD regimen: Scheduled Breo + Incruse Ellipta, as needed Ventolin inhaler * Trend WBC on daily CBC Elevated troponin -No evidence of ischemia, no angina. Likely demand ischemia given primary pulmonary process. -Seen earlier this month for labile hypertension, sinus tachycardia (see below) by [facility]. Stress echocardiogram was not performed then as there was low suspicion for myocardial ischemia. -Repeat troponin increased to 159 from 96.4. Consider echocardiogram to rule out primary intracardiac process * Repeat troponin pending * BNP pending * Echocardiogram ordered Heterozygous Factor V Leiden mutation -History of DVT x 3. Chronically on warfarin (3 mg on Saturday, 4 mg daily rest of the week). -Follows [facility] anticoagulation clinic (target INR 2-3) with PT/INR drawn monthly. INR of 4.0 on admission. Warfarin held. * Trend Daily a.m. PT/INR daily. * Restart warfarin once INR <3. Labile hypertension/sinus tachycardia -[place] [facility] [place] for exertional tachy- palpitations thought to be hypoxemia-induced sinus tachycardia. -Low suspicion for myocardial ischemia at that visit thought to be "no immediate role for stress testing." -Prescribed as needed clonidine, scheduled metoprolol succinate 25 mg 3 times daily. * Holding clonidine, metoprolol succinate for now given soft blood pressures * Continue to monitor GERD -Takes omeprazole 20 mg at home. * IV pantoprazole 40 mg daily * As needed IV famotidine 20 mg every 12 hours Anxiety disorder -Takes lorazepam 1 mg p.o. twice daily (reviewed PDMP database, prescription last filled 06/03/2023) * Continue home lorazepam Hypothyroidism * Home levothyroxine 37.5 mcg daily Code: Full code Dispo: PCU FEN/GI: NPO. NS @80 mL/h DVT Prophylaxis: Holding warfarin (supratherapeutic INR) PT/OT: No Consults: None Case Management: No (2) RSV infection: (3) COPD exacerbation: (4) Elevated troponin: (5) Factor 5 Leiden mutation, heterozygous: (6) Labile hypertension: (7) Sinus tachycardia: (8) Acid reflux: (9) Anxiety disorder: (10) Hypothyroidism: History of Present Illness Primary Care Provider: Nat Shankar DO Irene is a 73-year-old woman with a past medical history of chronic hypoxemic respiratory failure in the setting of COPD (on 2 L nasal cannula at home), hypothyroidism, heterozygous factor V Leiden mutation (hx of DVT x3) on warfarin, GERD, and labile hypertension, who presented to the emergency room via EMS after being found unconscious by her this morning. Per ED note, notes that she had an episode of bronchitis in the days prior. Otherwise, no other HPI available. An attempt to reach spouse by phone was not answered as of the writing of this note. In the ED, patient was found to be severely tachypneic (RR in the 30s) requiring BiPAP, and mildly hypotensive. Notable labs obtained during initial workup include: WBC-13.32 (neutrophilic predominance), ABG (pH-7.2, pCO2-55, pO2-73, HCO3-27), hs troponin-96.4, procalcitonin-1.06, lactate-1.4, INR-4.0. Urinalysis revealed 1+ hematuria, 2+ glucosuria, 1+ proteinuria, but was negative for nitrites, or leukocyte esterases. Respiratory viral panel returned positive for RSV. Head CT was negative for acute intracranial hemorrhage or infarct. Chest CTA noted no acute abnormality or evidence of pulmonary embolus (chronic diffuse centrilobular emphysema at bilateral apices). She received doses of empiric antibiotics (doxycycline, ceftriaxone), and normal saline boluses of 250 mL x 3. Hospitalist service was then consulted for admission. On admission bedside exam, patient was awake and responsive, though conversation was limited due to BiPAP. She appeared to be alert and oriented x 3. She reports some discomfort with the nonrebreather mask and some neck pain. Otherwise, nothing to report on ROS at this time. Allergies Allergy/AdvReac Type Severity Reaction Status Date / Time adhesive tape Allergy Intermediate Rash Verified 05/28/23 13:15 bacitracin Allergy Mild RASH Verified 05/28/23 13:15 latex Allergy Mild RASH Verified 05/28/23 13:15 neomycin Allergy Mild RASH Verified 05/28/23 13:15 polymyxin B Allergy Mild RASH Verified 05/28/23 13:15 levofloxacin [From Levaquin] AdvReac Severe N/V, dizzy Verified 05/28/23 13:15 Home Medications Medication Instructions Recorded Confirmed Type albuterol sulfate 2.5 mg/3 mL 2.5 mg inhalation .COMPLEX PRN sob 02/19/19 06/17/23 History (0.083 %) solution for nebulization lorazepam 1 mg tablet 1 mg PO BID 02/19/19 06/17/23 History levothyroxine 25 mcg tablet See Rx Instructions PO .COMPLEX 09/01/19 06/17/23 History diphenhydramine 25 1 tab PO HS 10/17/20 06/17/23 History mg-acetaminophen 500 mg tablet melatonin 10 mg tablet 10 mg PO HS PRN Sleep 10/17/20 06/17/23 History Oxygen Home #2 L 01/25/22 05/28/23 Rx Portable Oxygen #1 ea 01/25/22 05/28/23 Rx albuterol sulfate 90 mcg/actuation 2 puff inhalation Q6H PRN 09/10/22 06/17/23 History aerosol inhaler shortness of breath or wheezing budesonide-formoterol HFA 160 2 puff inhalation BID #10.2 grams 09/10/22 06/17/23 Rx mcg-4.5 mcg/actuation aerosol inhaler tiotropium bromide 2.5 2 inh inhalation QAM #3 Inhalers 09/10/22 06/17/23 Rx mcg/actuation mist for inhalation (Spiriva Respimat) Portable Oxygen #1 ea 09/12/22 05/28/23 Rx lubiprostone 8 mcg capsule 8 mcg PO BID #60 caps 12/06/22 06/17/23 Rx (Amitiza) warfarin 3 mg tablet 0 mg PO DAILY 12/17/22 06/17/23 History omeprazole 20 mg capsule,delayed 20 mg PO DAILY #30 caps 12/26/22 06/17/23 Rx release clonidine HCl 0.1 mg tablet 0.1 mg PO BID PRN hypertensive 04/23/23 06/17/23 Rx emergency #30 tabs metoprolol succinate 25 mg 25 mg PO TID #270 tabs 05/07/23 06/17/23 Rx tablet,extended release 24 hr Past Med/Surg History Medical History Nausea and vomiting after administration of anesthetic agent Tremor ESBL (extended spectrum beta-lactamase) producing bacteria infection IBS (irritable bowel syndrome) Anxiety On home oxygen therapy Chronic hypoxemic respiratory failure High frequency hearing loss of both ears Hx of blood clots Bronchitis Shortness of breath Chronic rhinitis Chronic sinusitis Laryngopharyngeal reflux Nontoxic multinodular goiter Pyoderma Sleep disorder Syncopal episodes Multiple lung nodules on CT History of nicotine dependence COPD (chronic obstructive pulmonary disease) History of hypothyroidism History of gastroesophageal reflux (GERD) Factor 5 Leiden mutation, heterozygous Surgical History History of tooth extraction History of cataract surgery History of cholecystectomy Hx of colonoscopy H/O melanoma excision History of foot surgery History of breast biopsy History of thyroid surgery Family History Unknown Hypertension Diabetes Mother Cancer Breast cancer Sister Cancer Breast cancer Factor V Leiden Other Family history of bleeding disorder No family history of adverse response to anesthesia Denies family history of Heart disease Stroke Asthma Social History Smoking Status: Current every day smoker Tobacco Type: Cigarettes Cigarettes Per Day: 11-12 cigs per day; Second Hand Exposure: Yes; Do You Dip or Chew Tobacco: No; Tobacco Cessation Education Requested by Patient: No Hx Alcohol Use: Yes Alcohol type: beer Hx Substance Use: No Preferred Language: Libyan Communication Ability: Effective Temporary Data Entry Clerk Required: No Beliefs That Will Affect Care: None marital status: Current Living Situation: Spouse current occupational status: retired current occupation: Retired from [employer] How many Children do You have: 1 Other Information That Helps Us Care for You: No Feels Safe at Home: Yes Safety Concerns: Feels Safe At This Time Assistive Devices: Denture - Upper, Denture - Lower, Glasses and Oxygen - Continuous Review of Systems Review of Systems: All systems reviewed & are unremarkable except as noted in HPI & below Physical Exam Physical Exam: General: Frail, fatigued appearing elderly woman in no acute distress. HEENT: PERRLA. Normal conjunctiva, anicteric sclera. Respiratory: Wearing BiPAP mask. Unable to auscultate. Cardiovascular: Unable to auscultate due to BiPAP machine (HR-80s on bedside playground monitor). No pedal edema. GI: Did not palpate or auscultate due to BiPAP. Neuro: Alert and oriented x3. Results & Data Results & Data Vital Signs (Past 12 Hours) Vital Signs Pulse Resp BP Pulse Ox O2 Del Method FiO2 06/17/23 10:15 86/59 L 06/17/23 10:15 91 H 22 99 06/17/23 10:00 90 24 97 06/17/23 10:00 85/63 L 06/17/23 09:47 94/67 L 06/17/23 09:47 95 H 28 H 77 L 06/17/23 09:45 101 H 24 75 L 06/17/23 09:30 90/61 L 06/17/23 09:30 91 H 22 93 06/17/23 09:15 90 25 H 95 06/17/23 09:15 85/54 L 06/17/23 09:00 91 H 25 H 99 06/17/23 09:00 74/51 L 06/17/23 08:45 95 H 27 H 97 06/17/23 08:45 91/50 L 06/17/23 08:30 91 H 26 H 100 06/17/23 08:30 79/58 L 06/17/23 08:26 90 25 H 100 06/17/23 08:26 88/56 L 06/17/23 08:16 88 26 H 06/17/23 08:16 76/39 L 06/17/23 08:15 88 26 H 86 L 06/17/23 08:12 80/49 L 06/17/23 08:12 86 22 100 06/17/23 08:00 81/48 L 06/17/23 08:00 81/48 L 06/17/23 08:00 87 24 06/17/23 07:45 93 H 31 H 88 L 06/17/23 07:45 87/47 L 06/17/23 07:30 92/61 L 06/17/23 07:30 94 H 31 H 100 06/17/23 07:21 93 H 06/17/23 07:16 93 H 27 H 100 06/17/23 07:16 93/64 L 06/17/23 07:15 94 H 30 H 100 06/17/23 07:05 94 H 28 H 98 21 06/17/23 07:00 96 H 24 06/17/23 06:45 95 H 30 H Non-rebreather Code Status & VTE Plan VTE Prophylaxis Plan VTE Prophylaxis will be ordered: Yes Supervising Physician Co-Signing Physician Notes Attending Physician Supervision Note: I independently interviewed and examined the patient and verified the pat history and physical, reviewed labs and image studies and agree with findings and care plan noted above. breathing not improved. wasn't able to tolerated bipap. thinks her O2 flow should be increased. vitals noted, in respiratory distress, accessory muscle use, diminished breath sounds, tachy Acute on chronic hypercapnic/hypoxic respiratory failure - on 2L home O2 Not able to tolerate bipap in the ER continue supplemental O2 COPD exacerbation in setting of RSV No pneumonia on CT chest Received IV steroids in ED - continue Nebs; LABA/LAMA/ICS Elevated troponin rising troponin level. with acute resp failure - likely demand ischemia but with extensive h/o smoking - check echo, consult cardio. continue b dre. Not on statin/aspirin. Metabolic encephalopathy Found unconscious at home. Likely from hypercapnia worsened by acute infection and hypotension. Mentation clear. Labile HTN On clonidine at home. Holding d/t lower BPs here. Recurrent DVT, factor V mutation INR supratherapeutic. Hold warfarin, recheck inr in am Multiple discussion with patient about code status - she would like to be 'Full resuscitation' status. Resident Activity Tracking Resident Involvement: Resident Care Provided Care Provided: Adult Hospital Medicine (8) Acid reflux Esophagitis presence: esophagitis presence not specified Qualified Code(s): K21.9 - Gastro-esophageal reflux disease without esophagitis (9) Anxiety disorder Anxiety disorder type: unspecified anxiety disorder Qualified Code(s): F41.9 - Anxiety disorder, unspecified (10) Hypothyroidism Hypothyroidism type: unspecified Qualified Code(s): E03.9 - Hypothyroidism, unspecified
[2023-06-17 10:32] LABS: iSTAT Arterial Blood Gas HCO3 27 meg/L (19-24); iSTAT Arterial Blood Gas pCO2 55 mmHg (35-46); iSTAT Arterial Blood Gas pO2 73 mmHg (80-95); iSTAT Carbon Dioxide 29 mmol/L (24-31); iSTAT Hematocrit 39 % (37-47); iSTAT Hemoglobin 13.3 g/dl (12.0-16.0); iSTAT Potassium 4.2 mmol/L (3.3-5.0); iSTAT Sodium 137 mmol/L (135-144)
[2023-06-17] MEDS ORDERED: ALBUTEROL 0.083% NEBU SOLN 3 ML VIAL INH PRN (11:12)
[2023-06-17] MEDS ORDERED: cloNIDine HCL 0.1 MG TAB PO PRN (11:12)
[2023-06-17] MEDS ORDERED: NON-FORMULARY MEDICATION (Oxygen Home Liters per Minute) SCH (11:12)
[2023-06-17] MEDS ORDERED: ALBUTEROL HFA 8 GM INHALER INH PRN (11:12)
[2023-06-17] MEDS: ALBUT/IPRATROP 3MG/0.5MG NEB 3 ML VIAL NEB SCH ×4 (11:54→22:58)
[2023-06-17] MEDS: PANTOprazole 40 MG in SYRINGE 0 ML IV SCH (12:37)
[2023-06-17] MEDS ORDERED: METOPROLOL SUCC 25MG EXT REL TAB PO SCH (14:00)
[2023-06-17] MEDS: LEVOTHYROXINE SODIUM 25 MCG TABLET PO SCH (14:31)
[2023-06-17] MEDS ORDERED: LORazepam 0.5 MG in SYRINGE 0.25 ML IV PRN (15:34)
[2023-06-17] MEDS: ACETAMINOPHEN 500 MG TAB PO PRN (17:39)
[2023-06-17] MEDS: FLUTICASONE/VILANTEROL 100/25MCG 14 PUFFS/INHALER INH SCH (20:31)
[2023-06-17] MEDS: LUBIPROSTONE 8 MCG CAP PO SCH (20:32)
[2023-06-17] MEDS: diphenhydrAMINE Capsule 25 MG CAP PO SCH (20:32)
[2023-06-17] MEDS: guaiFENesin 600 MG TABCR PO PRN (20:32)
[2023-06-17] MEDS: methylPREDNISolone 40 MG in SYRINGE 0 ML IV SCH (20:40)
[2023-06-17] MEDS: LORazepam 1 MG TAB PO SCH (20:40)
--- NOTE | 2023-06-17 20:45 | XCELERA ---
[id number] \\[email or web address]\[id number]
[2023-06-17] MEDS ORDERED: FAMOTIDINE 20 MG in SYRINGE 3 ML IV PRN (21:00)
[2023-06-18] MEDS: SODIUM CHLORIDE 0.9% 1,000 ML IV SCH ×2 (01:38→16:27)
[2023-06-18] MEDS: ALBUT/IPRATROP 3MG/0.5MG NEB 3 ML VIAL NEB SCH ×4 (02:45→11:39)
[2023-06-18] MEDS: methylPREDNISolone 40 MG in SYRINGE 0 ML IV SCH (05:57)
[2023-06-18] MEDS: LEVOTHYROXINE SODIUM 25 MCG TABLET PO SCH (05:57)
--- NOTE | 2023-06-18 07:14 | Hospitalist Progress Note ---
Date of Service June 18, 2023 Assessment & Plan (1) Acute respiratory failure with hypoxia and hypercarbia: Plan: Pt is a 73 yo F with PMH chronic hypoxic respiratory failure on home oxygen, COPD, FVL mutation, hypothyroidism, and GERD, who presented to emergency room via ambulance after being found unconscious. Initially requiring BiPAP, but now stable and saturating well on oxygen via nasal cannula. Admitted for management of acute on chronic hypoxic and hypercarbic respiratory failure in the setting of COPD, RSV infection. Today, will do steroid burst po instead of IV steroids, prednisone 40 mg x 5 days. Plan to restart warfarin tomorrow. Troponins had plateaued yesterday and with good EKG and echo, likely demand ischemia from initial hypoxia. Acute Respiratory Failure with Hypoxia and Hypercarbia/RSV Infection/COPD Exacerbation -Given hypoxia and hypercarbia, presence of acute inflammatory markers, suspect mixed infectious/inflammatory etiology from COPD, RSV. -Received Solu-Medrol, DuoNeb in EMS prior to arrival. S/p doxycycline, ceftriaxone in the ED. -Initially on BiPAP but now saturating well on oxygen via 3 L nasal cannula. * Supplemental oxygen via nasal cannula (up to BiPAP if needed) * DuoNebs every 4 hours x 24 hours, then as needed * Continue home COPD regimen: Scheduled Breo + Incruse Ellipta, as needed Ventolin inhaler * will do po steroids x5 days and Azithromycin 250 mg daily x 4 days starting 06/18/2023 for COPD exac Elevated troponin -No angina. Likely demand ischemia given primary pulmonary process. -Seen earlier this month for labile hypertension, sinus tachycardia (see below) by [facility]. Stress echocardiogram was not performed then as there was low suspicion for myocardial ischemia. - troponin levels plateaued yesterday so with normal echo and unremarkable EKG, so elevation likely secondary to demand ischemia with hypoxia on admission Heterozygous Factor V Leiden mutation -History of DVT x 3. Chronically on warfarin (3 mg on Saturday, 4 mg daily rest of the week). -Follows [facility] anticoagulation clinic (target INR 2-3) with PT/INR drawn monthly. INR of 4.0 on admission. Warfarin held. * Trend Daily a.m. PT/INR daily. * Restart warfarin once INR <3. Labile hypertension/sinus tachycardia -Se[place] [facility] [place] [place] early May for exertional tachy- palpitations thought to be hypoxemia-induced sinus tachycardia. -Low suspicion for myocardial ischemia at that visit thought to be "no immediate role for stress testing." -Prescribed as needed clonidine, scheduled metoprolol succinate 25 mg 3 times daily. * Holding clonidine, metoprolol succinate for now given soft blood pressures * Continue to monitor GERD -Takes omeprazole 20 mg at home. * IV pantoprazole 40 mg daily * As needed IV famotidine 20 mg every 12 hours Anxiety disorder -Takes lorazepam 1 mg p.o. twice daily (reviewed PDMP database, prescription last filled 06/03/2023) * Continue home lorazepam Hypothyroidism * Home levothyroxine 37.5 mcg daily DVT Prophylaxis: Holding warfarin (supratherapeutic INR) IVF: NS 80ml/hr (2) RSV infection: (3) COPD exacerbation: (4) Elevated troponin: (5) Factor 5 Leiden mutation, heterozygous: (6) Labile hypertension: (7) Sinus tachycardia: (8) Acid reflux: (9) Anxiety disorder: (10) Hypothyroidism: Admission and Anticipated Discharge Date Admission Date: June 17, 2023 Supervising Physician Co-Signing Physician Notes Attending Physician Supervision Note: I independently interviewed and examined the patient and verified the pat history and physical, reviewed labs and image studies and agree with findings and care plan noted above. breathing better. vitals noted, respiratory distress at baseline, diminished breath sounds but better air entry than yesterday, tachy Acute on chronic hypercapnic/hypoxic respiratory failure - on 5L home O2 Resolved. continue supplemental O2 COPD exacerbation in setting of RSV No pneumonia on CT chest - d/c ceftriaxone Switch steroids to PO Nebs; LABA/LAMA/ICS Elevated troponin Echo with No WMA. Likely demand ischemia. continue b dre. Not on statin/aspirin. Metabolic encephalopathy Found unconscious at home. Likely from hypercapnia worsened by acute infecti on and hypotension. Mentation clear. Labile HTN On clonidine at home prn. Holding d/t lower BPs here. Recurrent DVT, factor V mutation INR supratherapeutic. Hold warfarin, recheck inr in am Multiple discussion with patient about code status on day of admission considering her poor lung function - she would like to remain 'Full resuscitation' status. Subjective Pt is a 73 yo F with PMH chronic hypoxic respiratory failure on home oxygen, COPD, FVL mutation, hypothyroidism, and GERD, who presented to emergency room via ambulance after being found unconscious. Initially requiring BiPAP, but now stable and saturating well on oxygen via nasal cannula. Admitted for management of acute on chronic hypoxic and hypercarbic respiratory failure in the setting of COPD, RSV infection. Today, she states she is feeling much much better than yesterday, that her breathing has improved and she is hopeful to get to go home as soon as possible. She states to me that for her COPD she is typically taking 5L of O2 at home but only when moving around, and when she is just sitting at rest she takes off the oxygen except at night when she wears CPAP or bipap. She has no chest pain or SOB today. Tolerating oral intake well. No questions or acute concerns at this time. Review of Systems Review of Systems: Per HPI. Physical Exam Physical Exam: General:Alert and oriented, no acute distress, HEENT: Normocephalic, moist oral mucosa, Cardio: Regular rate and rhythm, no murmur, Resp:Lungs clear to auscultation b/l, GI: Soft and nontender, nondistended, bowel sounds active Skin: Warm, pink, dry, Psych: Mood-affect congruence. Results & Data Results & Data Vital Signs (Past 12 Hours) Vital Signs Temp Pulse Pulse Resp BP Pulse Ox O2 Del Method 06/18/23 07:08 37.3 C 82 22 98/59 L 94 Nasal Cannula 06/18/23 05:59 86 06/18/23 05:59 100 H 06/18/23 05:43 98 H 18 99 Nasal Cannula 06/18/23 03:05 76 18 98 Nasal Cannula 06/18/23 03:03 36.9 C 98 H 20 100/58 L 100 Nasal Cannula 06/18/23 00:11 37.6 C H 91 H 18 93/56 L 99 Nasal Cannula 06/17/23 22:58 85 18 94 Nasal Cannula 06/17/23 22:04 80 06/17/23 20:17 36.9 C 93 H 19 88/56 L 98 Nasal Cannula 06/17/23 19:41 90 18 98 Nasal Cannula 06/17/23 19:30 Nasal Cannula O2 Flow Rate 06/18/23 07:08 1 06/18/23 05:59 06/18/23 05:59 06/18/23 05:43 2 06/18/23 03:05 2 06/18/23 03:03 2 06/18/23 00:11 2.5 06/17/23 22:58 2 06/17/23 22:04 06/17/23 20:17 2.5 06/17/23 19:41 2 06/17/23 19:30 2.5 Resident Activity Tracking Resident Involvement: Resident Care Provided Care Provided: Adult Hospital Medicine (8) Acid reflux Esophagitis presence: esophagitis presence not specified Qualified Code(s): K21.9 - Gastro-esophageal reflux disease without esophagitis (9) Anxiety disorder Anxiety disorder type: unspecified anxiety disorder Qualified Code(s): F41.9 - Anxiety disorder, unspecified (10) Hypothyroidism Hypothyroidism type: unspecified Qualified Code(s): E03.9 - Hypothyroidism, unspecified
[2023-06-18 07:57] LABS: Basophils # (auto) 0.01 K/uL (0.00-0.20); Basophils % (auto) 0.1 %; Hematocrit (blood only) 32.9 % (37.0-47.0); Hemoglobin 10.9 g/dl (12.0-16.0); Immature Granulocytes # (auto) 0.04 K/uL (0.01-0.20); Immature Granulocytes % (auto) 0.6 %; Lymphocytes # (auto) 0.65 K/uL (1.20-3.40); Lymphocytes % (auto) 8.9 %; Mean Corpuscular Hemoglobin 31.2 pg (25.0-34.0); Mean Corpuscular Hgb Conc 33.1 g/dL (32.0-36.0); Mean Corpuscular Volume 94.3 fL (80.0-100.0); Mean Platelet Volume 10.9 fL (9.4-12.4); Monocytes # (auto) 0.42 K/uL (0.11-0.59); Monocytes % (auto) 5.8 %; Neutrophils # (auto) 6.15 K/uL (1.40-6.50); Neutrophils % (auto) 84.6 %; Platelet Count 187 K/uL (130-400); RDW Coefficient of Variation 13.9 % (11.5-14.5); RDW Standard Deviation 47.6 fL (36.4-46.3); Red Blood Count 3.49 M/uL (4.20-5.40); White Blood Count 7.27 K/ul (4.8-10.8)
[2023-06-18] MEDS: AZITHROMYCIN 250 MG in DEXTROSE 5% 250 ML IV SCH (07:58)
[2023-06-18 08:13] LABS: INR 3.6 (0.9-1.1); Prothrombin Time 36.7 Seconds (9.0-12.0)
[2023-06-18 08:15] LABS: BUN Creatinine Ratio 20.7 (10-20); Creatinine Clr Calc Pharmacy 68.3 ml/min; Est GFR (Non-African American) 91.4 ml/min
[2023-06-18] MEDS: LORazepam 1 MG TAB PO SCH ×2 (08:39→20:41)
[2023-06-18] MEDS: LUBIPROSTONE 8 MCG CAP PO SCH ×2 (08:39→20:45)
[2023-06-18] MEDS: guaiFENesin 600 MG TABCR PO PRN (08:39)
[2023-06-18] MEDS: UMECLIDINIUM BROMIDE 62.5MCG/BLISTER 7 PUFFS/INHALER INH SCH (08:39)
[2023-06-18] MEDS ORDERED: cefTRIAXone SODIUM 2,000 MG in DEXTROSE 5 % MINI-B 50 ML IV SCH ×2 (09:00→09:30)
--- NOTE | 2023-06-18 10:11 | Electrocardiogram Report ---
Test Reason : Blood Pressure : / mmHG Vent. Rate : 094 BPM Atrial Rate : 094 BPM P-R Int : 144 ms QRS Dur : 070 ms QT Int : 336 ms P-R-T Axes : 079 061 071 degrees QTc Int : 420 ms Sinus rhythm Low voltage QRS Nonspecific ST abnormality Abnormal ECG Confirmed by Aleks Banerjee ([id number]) on 06/18/2023 10:11:47 AM Referred By: REFERRED SELF Confirmed By:Mert Banerjee
--- NOTE | 2023-06-18 10:12 | Cardiology Consultation ---
Date of Consultation June 18, 2023 Assessment & Plan (1) RSV infection: (2) Elevated troponin: (3) Acute respiratory failure with hypoxia and hypercarbia: (4) Labile hypertension: (5) COPD exacerbation: Plan Patient is a 73 y/o female with PMHx of COPD with home oxygen who was admitted after a syncopal episode in the setting of active RSV infection and associated COPD exacerbation. She appears to be comfortable, although somewhat SOB. She states that, up until this current episode, she had been smoking 7 cigarettes per day but stopped when her symptoms began. She does not recall the events that led to her syncopal episode, but denies chest pain, diaphoresis, N/V/D, or any other preceding symptom. Hypoxia -- patient with history of COPD on home oxygen that is still smoking, and has a current RSV infection that is causing an exacerbation. Agree with supportive management with supplemental oxygen, scheduled duonebs and breo ellipta + as needed Ventolin inhalers. Increase in Troponins -- may be related to current lung disease and associated demand ischemia due to hypoxia. Her current chest pressure may also be related to current illness with SOB. EKG with sinus rhythm and no ST segment changes to suggest ischemia. TTE showing EF of 60-65% and normal LV size and wall thickness. Also showing borderline dilated RV with normal RV function, as well as dilated IVC with borderline pulmonary HTN that is likely associated to her history of lung disease. No wall motion abnormalities or other findings to suggest recent ischemia. Syncope -- may be related to current viral infection and associated hypoxia from COPD exacerbation. She has had history of other syncopal episodes that seem to be related to positional changes or orthostatism. Suggest repeat evaluation once viral illness resolves to see for other potential causes of syncope. Supervising Physician Co-Signing Physician Notes I saw and examined the patient with Dr. Maddox and agree with the documentation above. Briefly, patient with known severe COPD who was found poorly responsive by her . At the time EMS arrived she was also noted to be poorly responsive, hypoxic and later hypercapnic. No documented arrhythmias at the time of initial evaluation with normal heart rate. Mildly elevated troponins which appear related to period of hypoxia. Elevated BNP, but no objective evidence of pulmonary vascular congestion or edema. I think her unresponsive this was likely related to her pulmonary process. Echocardiogram performed during this hospitalization did not reveal any new wall motion abnormalities or significantly reduced LV systolic function. As such, I believe her current admission is related to her pulmonary process and there are no acute cardiac issues. History of Present Illness Reason for Consultation: Elevated troponin, possible syncope Attending Physician: Courtney Gonzalez MD History of Present Illness Irene is a 73 y/o female with PMHx of COPD on home oxygen at 2lpm (increase to 5lpm when walking)Anxiety, and labile HTN who was admitted after being found unconscious at home by her . Prior to this, she had been experiencing symptoms of bronchitis with associated SOB that began 2 days after her had been experiencing similar symptoms. She does not recall the event that led to her falling unconscious and states that she remembers from when she was in the ED. She denies experiencing chest pain, dizziness, diaphoresis, nausea, weakness, malaise, or any other symptom prior to her syncope. She has had episodes of syncope in the past, the most recent being in her kitchen when she was spinning around to put a plate down. She was seen at bedside today and found to be alone, aaox3, calm, with NC at 1 lpm, and in no acute distress. She refers having constant pressure over her chest that is substernal without radiation to her left arm or jaw. Other than this, she refers feeling somewhat SOB and having some weakness. Has not ambulated yet. She denies fevers, chills, malaise, N/V/D, or any additional symptom. Allergies Allergy/AdvReac Type Severity Reaction Status Date / Time adhesive tape Allergy Intermediate Rash Verified 05/28/23 13:15 bacitracin Allergy Mild RASH Verified 05/28/23 13:15 latex Allergy Mild RASH Verified 05/28/23 13:15 neomycin Allergy Mild RASH Verified 05/28/23 13:15 polymyxin B Allergy Mild RASH Verified 05/28/23 13:15 levofloxacin [From Levaquin] AdvReac Severe N/V, dizzy Verified 05/28/23 13:15 Home Medications Medication Instructions Recorded Confirmed Type albuterol sulfate 2.5 mg/3 mL 2.5 mg inhalation .COMPLEX PRN sob 02/19/19 06/17/23 History (0.083 %) solution for nebulization lorazepam 1 mg tablet 1 mg PO BID 02/19/19 06/17/23 History levothyroxine 25 mcg tablet See Rx Instructions PO .COMPLEX 09/01/19 06/17/23 History diphenhydramine 25 1 tab PO HS 10/17/20 06/17/23 History mg-acetaminophen 500 mg tablet melatonin 10 mg tablet 10 mg PO HS PRN Sleep 10/17/20 06/17/23 History Oxygen Home #2 L 01/25/22 05/28/23 Rx Portable Oxygen #1 ea 01/25/22 05/28/23 Rx albuterol sulfate 90 mcg/actuation 2 puff inhalation Q6H PRN 09/10/22 06/17/23 History aerosol inhaler shortness of breath or wheezing budesonide-formoterol HFA 160 2 puff inhalation BID #10.2 grams 09/10/22 06/17/23 Rx mcg-4.5 mcg/actuation aerosol inhaler tiotropium bromide 2.5 2 inh inhalation QAM #3 Inhalers 09/10/22 06/17/23 Rx mcg/actuation mist for inhalation (Spiriva Respimat) Portable Oxygen #1 ea 09/12/22 05/28/23 Rx lubiprostone 8 mcg capsule 8 mcg PO BID #60 caps 12/06/22 06/17/23 Rx (Amitiza) warfarin 3 mg tablet 0 mg PO DAILY 12/17/22 06/17/23 History omeprazole 20 mg capsule,delayed 20 mg PO DAILY #30 caps 12/26/22 06/17/23 Rx release clonidine HCl 0.1 mg tablet 0.1 mg PO BID PRN hypertensive 04/23/23 06/17/23 Rx emergency #30 tabs metoprolol succinate 25 mg 25 mg PO TID #270 tabs 05/07/23 06/17/23 Rx tablet,extended release 24 hr Patient History Medical History (Updated 06/18/23 @ 10:02 by Quyen Maddox MD) Nausea and vomiting after administration of anesthetic agent Tremor ESBL (extended spectrum beta-lactamase) producing bacteria infection listed in problem list from 2016, pt is unaware of details IBS (irritable bowel syndrome) Anxiety On home oxygen therapy 2 LPM at HS, prn in day Chronic hypoxemic respiratory failure on 02 @ 2 LPM at HS, prn in day High frequency hearing loss of both ears Hx of blood clots takes warfarin > hx of bilat legs Bronchitis hx Shortness of breath Chronic rhinitis Chronic sinusitis Laryngopharyngeal reflux Nontoxic multinodular goiter Pyoderma Sleep disorder insomnia Syncopal episodes resolved > no further issues per pt Multiple lung nodules on CT History of nicotine dependence COPD (chronic obstructive pulmonary disease) uses res inh approx 3x per day History of hypothyroidism History of gastroesophageal reflux (GERD) Factor 5 Leiden mutation, heterozygous Surgical History History of tooth extraction History of cataract surgery bilat History of cholecystectomy Hx of colonoscopy H/O melanoma excision back 2010 History of foot surgery right History of breast biopsy benign History of thyroid surgery partial > removed in 2009, due to nodule, no cancer Family History Unknown Hypertension Diabetes Mother Cancer Breast cancer Sister Cancer Breast cancer Factor V Leiden Other Family history of bleeding disorder No family history of adverse response to anesthesia Denies family history of Heart disease Stroke Asthma Social History Smoking Status: Current every day smoker Tobacco Type: Cigarettes Cigarettes Per Day: 11-12 cigs per day; Second Hand Exposure: Yes; Do You Dip or Chew Tobacco: No; Tobacco Cessation Education Requested by Patient: No Hx Alcohol Use: Yes Alcohol type: beer Hx Substance Use: No Preferred Language: Dutch Communication Ability: Effective Bakery Chef Required: No Beliefs That Will Affect Care: None marital status: Current Living Situation: Spouse current occupational status: retired current occupation: Retired from [employer] How many Children do You have: 1 Other Information That Helps Us Care for You: No Feels Safe at Home: Yes Safety Concerns: Feels Safe At This Time Assistive Devices: Denture - Upper, Denture - Lower, Glasses and Oxygen - Continuous Review of Systems Review of Systems: As per HPI Physical Exam Physical Exam: General: Alert. Oriented to person, time, and place. Afebrile. Spence in place draining clear urine without sediment or blood in the line or collecting bag. No acute distress. Cardiac: Regular rate and rhythm, no murmurs/rubs/gallops. Respiratory: Decreased breath sounds bilaterally. No wheezing. No crackles or rales. Appears slightly SOB. Symmetrical chest rise. No respiratory distress. Abdomen: Soft, nontender, nondistended. Bowel sounds present. Lower Extremities: No lower extremity edema or swelling. No deep calf pain. Zenaida's negative bilaterally. Psych: Euthymic affect. Mood and affect congruence. Regular speech rate and content. Results & Data Vital Signs (Past 12 Hours) Vital Signs Temp Pulse Pulse Resp BP Pulse Ox O2 Del Method 06/18/23 07:08 37.3 C 82 22 98/59 L 94 Nasal Cannula 06/18/23 05:59 86 06/18/23 05:59 100 H 06/18/23 05:43 98 H 18 99 Nasal Cannula 06/18/23 03:05 76 18 98 Nasal Cannula 06/18/23 03:03 36.9 C 98 H 20 100/58 L 100 Nasal Cannula 06/18/23 00:11 37.6 C H 91 H 18 93/56 L 99 Nasal Cannula 06/17/23 22:58 85 18 94 Nasal Cannula 06/17/23 22:04 80 O2 Flow Rate 06/18/23 07:08 1 06/18/23 05:59 06/18/23 05:59 06/18/23 05:43 2 06/18/23 03:05 2 06/18/23 03:03 2 06/18/23 00:11 2.5 06/17/23 22:58 2 06/17/23 22:04 PG Care Time/CCT Total # of Minutes Spent Total Time Spent with Patient: Total time spent is greater than 50% in coordination of care (as documented) at patient's floor/unit and/or counseling patient: Coding Level of Care Code 61184 INT INP/OBS CARE 3/75MIN Diagnoses RSV infection B33.8 Elevated troponin R79.89 Acute respiratory failure with hypoxia and hypercarbia J96.01; J96.02 Labile hypertension R09.89 COPD exacerbation J44.1 Resident Activity Tracking Resident Involvement: Resident Care Provided Care Provided: Adult Hospital Medicine
[2023-06-18] MEDS ORDERED: ALBUT/IPRATROP 3MG/0.5MG NEB 3 ML VIAL NEB PRN (10:55)
[2023-06-18] MEDS: PANTOprazole 40 MG in SYRINGE 0 ML IV SCH (11:41)
[2023-06-18] MEDS: diphenhydrAMINE Capsule 25 MG CAP PO SCH (20:41)
[2023-06-18] MEDS: FLUTICASONE/VILANTEROL 100/25MCG 14 PUFFS/INHALER INH SCH (20:45)
[2023-06-19] MEDS: LEVOTHYROXINE SODIUM 25 MCG TABLET PO SCH (06:47)
--- NOTE | 2023-06-19 07:01 | Hospitalist Progress Note ---
Date of Service June 19, 2023 Assessment & Plan (1) Acute respiratory failure with hypoxia and hypercarbia: Plan: Pt is a 73 yo F with PMH chronic hypoxic respiratory failure on home oxygen, COPD, FVL mutation, hypothyroidism, and GERD, who presented to emergency room via ambulance after being found unconscious. Initially requiring BiPAP, but now stable and saturating well on oxygen via nasal cannula. Admitted for management of acute on chronic hypoxic and hypercarbic respiratory failure in the setting of COPD, RSV infection. Today, will remove gutierres and do voiding trial. Also will do PT/OT eval. Will restart warfarin today and check INR Saturday. Acute Respiratory Failure with Hypoxia and Hypercarbia/RSV Infection/COPD Exacerbation -Given hypoxia and hypercarbia, presence of acute inflammatory markers, suspect mixed infectious/inflammatory etiology from COPD, RSV. -Received Solu-Medrol, DuoNeb in EMS prior to arrival. S/p doxycycline, ceftriaxone in the ED. -Initially on BiPAP but now saturating well on oxygen via 3 L nasal cannula. * Supplemental oxygen via nasal cannula (up to BiPAP if needed) * DuoNebs every 4 hours x 24 hours, then as needed * Continue home COPD regimen: Scheduled Breo + Incruse Ellipta, as needed Ventolin inhaler * will do po steroids x5 days and Azithromycin 250 mg daily x 4 days starting 06/18/2023 for COPD exac Elevated troponin -No angina. Likely demand ischemia given primary pulmonary process. -Seen earlier this month for labile hypertension, sinus tachycardia (see below) by [facility]. Stress echocardiogram was not performed then as there was low suspicion for myocardial ischemia. - troponin levels plateaued yesterday so with normal echo and unremarkable EKG, so elevation likely secondary to demand ischemia with hypoxia on admission Heterozygous Factor V Leiden mutation -History of DVT x 3. Chronically on warfarin (3 mg on Saturday, 4 mg daily rest of the week). -Follows [facility] anticoagulation clinic (target INR 2-3) with PT/INR drawn monthly. INR of 4.0 on admission. Warfarin held. * Trend Daily a.m. PT/INR daily. * Restart warfarin once INR <3. Labile hypertension/sinus tachycardia -[place] [facility] [place] for exertional tachy- palpitations thought to be hypoxemia-induced sinus tachycardia. -Low suspicion for myocardial ischemia at that visit thought to be "no immediate role for stress testing." -Prescribed as needed clonidine, scheduled metoprolol succinate 25 mg 3 times daily. * Holding clonidine, metoprolol succinate for now given soft blood pressures * Continue to monitor GERD -Takes omeprazole 20 mg at home. * IV pantoprazole 40 mg daily * As needed IV famotidine 20 mg every 12 hours Anxiety disorder -Takes lorazepam 1 mg p.o. twice daily (reviewed PDMP database, prescription last filled 06/03/2023) * Continue home lorazepam Hypothyroidism * Home levothyroxine 37.5 mcg daily DVT Prophylaxis: Holding warfarin (supratherapeutic INR) IVF: NS 80ml/hr (2) RSV infection: (3) COPD exacerbation: (4) Elevated troponin: (5) Factor 5 Leiden mutation, heterozygous: (6) Labile hypertension: (7) Sinus tachycardia: (8) Acid reflux: (9) Anxiety disorder: (10) Hypothyroidism: Admission and Anticipated Discharge Date Admission Date: June 17, 2023 Supervising Physician Co-Signing Physician Notes I also saw the patient and confirmed pat portions of the clinical history and physical examination. I agree the impression and plan as noted in the resident documentation above. Subjective Upon our midmorning exam, the patient is resting comfortably. No complaints. Exam 132/72, 91, 20, 37 C, 94% on nasal cannula 3 L/min Alert and oriented. Pleasant. Mildly tachycardic but regular Lungs clear with nonlabored respirations Data CBC is unremarkable INR equals 1.9 BUN 7/creatinine 0.53 Impression and Plan Acute on chronic hypercapnic/hypoxic respiratory failure - on 5L home O2 Resolved. continue supplemental O2 COPD exacerbation in setting of RSV Tobacco abuse No pneumonia on CT chest - d/c ceftriaxone Prednisone Nebs; LABA/LAMA/ICS Elevated troponin Echo without wall motion. Likely demand ischemia. continue b dre. Not on statin/aspirin. Cardiology consultation appreciated Recurrent DVT, factor V mutation Resume warfarin Daily PT/INR Additional per resident documentation Subjective Pt is a 73 yo F with PMH chronic hypoxic respiratory failure on home oxygen, COPD, FVL mutation, hypothyroidism, and GERD, who presented to emergency room via ambulance after being found unconscious. Initially requiring BiPAP, but now stable and saturating well on oxygen via nasal cannula. Admitted for management of acute on chronic hypoxic and hypercarbic respiratory failure in the setting of COPD, RSV infection. Today, pt states she is feeling well. No chest pain or SOB. No questions or complaints at this time. Gutierres still in place. Review of Systems Review of Systems: As per HPI Physical Exam Physical Exam: General:Alert and oriented, no acute distress, HEENT: Normocephalic, moist oral mucosa, Cardio: Regular rate and rhythm, no murmur, Resp:Lungs clear to auscultation b/l, GI: Soft and nontender, nondistended, bowel sounds active Skin: Warm, pink, dry, Psych: Mood-affect congruence. Results & Data Results & Data Vital Signs (Past 12 Hours) Vital Signs Temp Pulse Pulse Resp BP Pulse Ox O2 Del Method 06/19/23 02:58 37.1 C 88 26 H 134/80 96 Nasal Cannula 06/18/23 23:10 Nasal Cannula 06/18/23 23:10 37.5 C 100 H 22 125/56 L 93 Nasal Cannula 06/18/23 22:05 91 H 06/18/23 19:06 37.2 C 84 16 129/79 99 Nasal Cannula O2 Flow Rate 06/19/23 02:58 3 06/18/23 23:10 3 06/18/23 23:10 2 06/18/23 22:05 06/18/23 19:06 2 Resident Activity Tracking Resident Involvement: Resident Care Provided Care Provided: Adult Hospital Medicine (8) Acid reflux Esophagitis presence: esophagitis presence not specified Qualified Code(s): K21.9 - Gastro-esophageal reflux disease without esophagitis (9) Anxiety disorder Anxiety disorder type: unspecified anxiety disorder Qualified Code(s): F41.9 - Anxiety disorder, unspecified (10) Hypothyroidism Hypothyroidism type: unspecified Qualified Code(s): E03.9 - Hypothyroidism, unspecified
[2023-06-19] MEDS: SODIUM CHLORIDE 0.9% 1,000 ML IV SCH (08:17)
[2023-06-19] MEDS: AZITHROMYCIN 250 MG in DEXTROSE 5% 250 ML IV SCH (08:18)
[2023-06-19] MEDS: LUBIPROSTONE 8 MCG CAP PO SCH ×2 (08:19→20:26)
[2023-06-19] MEDS: predniSONE 20 MG TAB PO SCH (08:19)
[2023-06-19] MEDS: UMECLIDINIUM BROMIDE 62.5MCG/BLISTER 7 PUFFS/INHALER INH SCH (08:20)
[2023-06-19] MEDS: LORazepam 1 MG TAB PO SCH ×2 (08:22→20:16)
[2023-06-19 08:29] LABS: Basophils # (auto) 0.03 K/uL (0.00-0.20); Basophils % (auto) 0.4 %; Eosinophils # (auto) 0.02 K/uL (0.00-0.50); Eosinophils % (auto) 0.3 %; Hematocrit (blood only) 40.3 % (37.0-47.0); Hemoglobin 12.8 g/dl (12.0-16.0); Immature Granulocytes # (auto) 0.02 K/uL (0.01-0.20); Immature Granulocytes % (auto) 0.3 %; Lymphocytes # (auto) 1.26 K/uL (1.20-3.40); Lymphocytes % (auto) 16.8 %; Mean Corpuscular Hemoglobin 31.1 pg (25.0-34.0); Mean Corpuscular Hgb Conc 31.8 g/dL (32.0-36.0); Mean Corpuscular Volume 98.1 fL (80.0-100.0); Mean Platelet Volume 11.1 fL (9.4-12.4); Monocytes # (auto) 0.85 K/uL (0.11-0.59); Monocytes % (auto) 11.3 %; Neutrophils # (auto) 5.34 K/uL (1.40-6.50); Neutrophils % (auto) 70.9 %; Platelet Count 223 K/uL (130-400); RDW Coefficient of Variation 13.6 % (11.5-14.5); RDW Standard Deviation 49.9 fL (36.4-46.3); Red Blood Count 4.11 M/uL (4.20-5.40); White Blood Count 7.52 K/ul (4.8-10.8)
[2023-06-19 08:43] LABS: BUN Creatinine Ratio 13.2 (10-20); Calcium 8.4 mg/dl (8.6-10.3); Creatinine Clr Calc Pharmacy 74.8 ml/min; Est GFR (African American) 109.2 ml/min; Est GFR (Non-African American) 94.2 ml/min; Potassium 3.8 mmol/L (3.5-5.1)
[2023-06-19 08:51] LABS: INR 1.9 (0.9-1.1); Prothrombin Time 19.9 Seconds (9.0-12.0)
[2023-06-19] MEDS: PANTOprazole 40 MG in SYRINGE 0 ML IV SCH (12:01)
[2023-06-19] MEDS ORDERED: WARFARIN SOD 3 MG TAB PO SCH (16:00)
[2023-06-19] MEDS: MELATONIN 3 MG TAB PO PRN (20:16)
[2023-06-19] MEDS: diphenhydrAMINE Capsule 25 MG CAP PO SCH (20:16)
[2023-06-19] MEDS: FLUTICASONE/VILANTEROL 100/25MCG 14 PUFFS/INHALER INH SCH (20:17)
[2023-06-20 06:19] LABS: Basophils # (auto) 0.02 K/uL (0.00-0.20); Basophils % (auto) 0.3 %; Eosinophils # (auto) 0.03 K/uL (0.00-0.50); Eosinophils % (auto) 0.5 %; Hematocrit (blood only) 36.2 % (37.0-47.0); Hemoglobin 11.8 g/dl (12.0-16.0); Immature Granulocytes # (auto) 0.02 K/uL (0.01-0.20); Immature Granulocytes % (auto) 0.3 %; Lymphocytes # (auto) 1.47 K/uL (1.20-3.40); Lymphocytes % (auto) 23.1 %; Mean Corpuscular Hemoglobin 31.6 pg (25.0-34.0); Mean Corpuscular Hgb Conc 32.6 g/dL (32.0-36.0); Mean Corpuscular Volume 96.8 fL (80.0-100.0); Mean Platelet Volume 10.4 fL (9.4-12.4); Neutrophils # (auto) 4.11 K/uL (1.40-6.50); Neutrophils % (auto) 64.8 %; Platelet Count 187 K/uL (130-400); RDW Coefficient of Variation 13.2 % (11.5-14.5); RDW Standard Deviation 48.2 fL (36.4-46.3); Red Blood Count 3.74 M/uL (4.20-5.40); White Blood Count 6.35 K/ul (4.8-10.8)
[2023-06-20] MEDS: LEVOTHYROXINE SODIUM 25 MCG TABLET PO SCH (06:28)
[2023-06-20 06:38] LABS: Calcium 8.2 mg/dl (8.6-10.3); Creatinine Clr Calc Pharmacy 92.2 ml/min; Est GFR (African American) 116.9 ml/min; Est GFR (Non-African American) 100.9 ml/min; Potassium 3.5 mmol/L (3.5-5.1)
[2023-06-20 06:53] LABS: INR 1.6 (0.9-1.1); Prothrombin Time 17.4 Seconds (9.0-12.0)
--- NOTE | 2023-06-20 07:07 | Hospitalist Progress Note ---
Date of Service June 20, 2023 Assessment & Plan (1) Acute respiratory failure with hypoxia and hypercarbia: Plan: Pt is a 73 yo F with PMH chronic hypoxic respiratory failure on home oxygen, COPD, FVL mutation, hypothyroidism, and GERD, who presented to emergency room via ambulance after being found unconscious. Initially requiring BiPAP, but now stable and saturating well on oxygen via nasal cannula. Admitted for management of acute on chronic hypoxic and hypercarbic respiratory failure in the setting of COPD, RSV infection. Today, seems pt was able to void yesterday without issue after gutierres removal. Had PT/OT come see her and when she stood up to work with them was noted to have HR 180s/190s so pt was instructed to sit down. Telemtry appears to be sinus tachycardia. 12 lead was done, official read pending. Pt states she was SOB at the time but no chest pain. Cardiology made aware. Increased warfarin from 3 mg to 4mg q1600 today. Will need INR checked Saturday if not still in the hospital then. Acute Respiratory Failure with Hypoxia and Hypercarbia/RSV Infection/COPD Exacerbation -Given hypoxia and hypercarbia, presence of acute inflammatory markers, suspect mixed infectious/inflammatory etiology from COPD, RSV. -Received Solu-Medrol, DuoNeb in EMS prior to arrival. S/p doxycycline, ceftriaxone in the ED. -Initially on BiPAP but now saturating well on oxygen via 3 L nasal cannula. * Supplemental oxygen via nasal cannula (up to BiPAP if needed) * DuoNebs every 4 hours x 24 hours, then as needed * Continue home COPD regimen: Scheduled Breo + Incruse Ellipta, as needed Ventolin inhaler * Continue po steroids x5 days and Azithromycin 250 mg daily x 4 days starting 06/18/2023 for COPD exac Elevated troponin -Noted on admission; No angina. Likely demand ischemia given primary pulmonary process. -Seen earlier this month for labile hypertension, sinus tachycardia (see below) by [facility]. Stress echocardiogram was not performed then as there was low suspicion for myocardial ischemia. - elevation from admission had plateaued, so elevation then was likely secondary to demand ischemia from hypoxia on admission Heterozygous Factor V Leiden mutation -History of DVT x 3. Chronically on warfarin (3 mg on Saturday, 4 mg daily rest of the week). -Follows [facility] anticoagulation clinic (target INR 2-3) with PT/INR drawn monthly. INR of 4.0 on admission. Warfarin held. * Trend Daily a.m. PT/INR daily. Labile hypertension/sinus tachycardia -[place] [facility] [place] early May for exertional tachy- palpitations thought to be hypoxemia-induced sinus tachycardia. -Low suspicion for myocardial ischemia at that visit thought to be "no immediate role for stress testing." -Prescribed as needed clonidine, scheduled metoprolol succinate 25 mg 3 times daily. * Holding clonidine, metoprolol succinate for now given soft blood pressures * Continue to monitor GERD -Takes omeprazole 20 mg at home. * IV pantoprazole 40 mg daily * As needed IV famotidine 20 mg every 12 hours Anxiety disorder -Takes lorazepam 1 mg p.o. twice daily (reviewed [facility] database, prescription last filled 06/03/2023) * Continue home lorazepam Hypothyroidism * Home levothyroxine 37.5 mcg daily DVT Prophylaxis: Holding warfarin (supratherapeutic INR) IVF: NS 80ml/hr stopped today as pt tolerates oral intake (2) RSV infection: (3) COPD exacerbation: (4) Elevated troponin: (5) Factor 5 Leiden mutation, heterozygous: (6) Labile hypertension: (7) Sinus tachycardia: (8) Acid reflux: (9) Anxiety disorder: (10) Hypothyroidism: Admission and Anticipated Discharge Date Admission Date: June 17, 2023 Supervising Physician Co-Signing Physician Notes I also saw the patient and confirmed pat portions of the clinical history and physical examination. I agree the impression and plan as noted in the resident documentation above. The patient was getting up to work with physical therapy, apparently had a sudden increase in her heart rate. Per telemetry staff, rates in the [phone]; they questioned SVT with PACs. When we first saw the patient a few minutes thereafter, she was in the 120s and on telemetry look to be in sinus tachycardia with occasional PAC. She was winded, but not much more than her baseline. Denied any chest pain. Physical therapy was appropriately stopped. She was hemodynamically stable other than tachycardia; she was actually little bit hypertensive.No change in her pulse oximeter/oxygen demand. Exam 155/72, 98, 18, 37.2, 95% on nasal cannula 5 L/min. Alert and oriented. Pleasant. Tachycardic but regular Lungs clear with nonlabored respirations Data Hemoglobin 11.8, platelet count 187 INR equals 1.6 BUN 6, creatinine 0.43 Impression and Plan Acute on chronic hypercapnic/hypoxic respiratory failure - on 5L home O2 Resolved. continue supplemental O2(Her home oxygen requirement) COPD exacerbation in setting of RSV Tobacco abuse No pneumonia on CT chest - d/c ceftriaxone Continue prednisone, may discontinue if continued burst of tachycardia Nebs; LABA/LAMA/ICS Episode of tachycardia Wonder if this could have been multifocal atrial tachycardia, especially given her significant lung disease May want to discontinue prednisone show tachycardia continue Check TSH with free T4 Elevated troponin Echo without wall motion. Likely demand ischemia. continue beta dre. Not on statin/aspirin. Cardiology consultation appreciated Recurrent DVT, factor V mutation Resume warfarin Daily PT/INR Additional per resident documentation Subjective Pt is a 73 yo F with PMH chronic hypoxic respiratory failure on home oxygen, COPD, FVL mutation, hypothyroidism, and GERD, who presented to emergency room via ambulance after being found unconscious. Initially requiring BiPAP, but now stable and saturating well on oxygen via nasal cannula. Admitted for management of acute on chronic hypoxic and hypercarbic respiratory failure in the setting of COPD, RSV infection. Today, pt stated she felt fine. Gutierres was removed yesterday and she states she has been able to pee without any issues. She is antsy to go home soon, as she states she is tired of sitting around in the hospital all day the last few days. No questions or complaints at this time. Review of Systems Review of Systems: As per HPI Physical Exam Physical Exam: General:Alert and oriented, no acute distress, HEENT: Normocephalic, moist oral mucosa, Cardio: Regular rate and rhythm, Resp:Lungs clear to auscultation b/l, poor air movement throughout all lung sesay noted Skin: Warm, pink, dry, Results & Data Results & Data Vital Signs (Past 12 Hours) Vital Signs Temp Pulse Pulse Resp BP Pulse Ox O2 Del Method 06/20/23 03:21 37.1 C 92 H 20 136/75 95 Nasal Cannula 06/19/23 22:52 37.3 C 69 16 100/58 L 93 Nasal Cannula 06/19/23 22:00 81 06/19/23 20:00 Nasal Cannula 06/19/23 19:58 37.5 C 81 22 125/56 L 92 Nasal Cannula O2 Flow Rate 06/20/23 03:21 4 06/19/23 22:52 4 06/19/23 22:00 06/19/23 20:00 4 06/19/23 19:58 3 Resident Activity Tracking Resident Involvement: Resident Care Provided Care Provided: Adult Hospital Medicine (8) Acid reflux Esophagitis presence: esophagitis presence not specified Qualified Code(s): K21.9 - Gastro-esophageal reflux disease without esophagitis (9) Anxiety disorder Anxiety disorder type: unspecified anxiety disorder Qualified Code(s): F41.9 - Anxiety disorder, unspecified (10) Hypothyroidism Hypothyroidism type: unspecified Qualified Code(s): E03.9 - Hypothyroidism, unspecified
[2023-06-20] MEDS: LUBIPROSTONE 8 MCG CAP PO SCH ×2 (08:29→20:46)
[2023-06-20] MEDS: predniSONE 20 MG TAB PO SCH (08:29)
[2023-06-20] MEDS: guaiFENesin 600 MG TABCR PO PRN (08:30)
[2023-06-20] MEDS: UMECLIDINIUM BROMIDE 62.5MCG/BLISTER 7 PUFFS/INHALER INH SCH (08:30)
[2023-06-20] MEDS: AZITHROMYCIN 250 MG in DEXTROSE 5% 250 ML IV SCH (08:30)
[2023-06-20] MEDS: LORazepam 1 MG TAB PO SCH ×2 (08:36→20:45)
[2023-06-20] MEDS: PANTOprazole 40 MG in SYRINGE 0 ML IV SCH (10:55)
[2023-06-20] MEDS: WARFARIN SOD 4 MG TAB PO SCH (15:02)
--- NOTE | 2023-06-20 17:22 | Electrocardiogram Report ---
Test Reason : Blood Pressure : / mmHG Vent. Rate : 118 BPM Atrial Rate : 118 BPM P-R Int : 120 ms QRS Dur : 074 ms QT Int : 326 ms P-R-T Axes : 070 064 -39 degrees QTc Int : 456 ms Sinus tachycardia with Premature atrial complexes Nonspecific ST abnormality Abnormal ECG When compared with ECG of 17-JUN-2023 07:07, Premature atrial complexes are now Present ST now depressed in Inferior leads T wave inversion now evident in Inferior leads Confirmed by Aleks Banerjee ([id number]) on 06/20/2023 5:22:18 PM Referred By: REFERRED SELF Confirmed By:Mert Banerjee
[2023-06-20] MEDS ORDERED: METOPROLOL SUCC 25MG EXT REL TAB PO STA (18:15)
[2023-06-20] MEDS: MELATONIN 3 MG TAB PO PRN (20:44)
[2023-06-20] MEDS: FLUTICASONE/VILANTEROL 100/25MCG 14 PUFFS/INHALER INH SCH (20:45)
[2023-06-20] MEDS: diphenhydrAMINE Capsule 25 MG CAP PO SCH (20:45)
[2023-06-21 06:16] LABS: Basophils # (auto) 0.02 K/uL (0.00-0.20); Basophils % (auto) 0.3 %; Eosinophils # (auto) 0.04 K/uL (0.00-0.50); Eosinophils % (auto) 0.6 %; Hematocrit (blood only) 35.9 % (37.0-47.0); Immature Granulocytes # (auto) 0.02 K/uL (0.01-0.20); Immature Granulocytes % (auto) 0.3 %; Lymphocytes # (auto) 1.56 K/uL (1.20-3.40); Lymphocytes % (auto) 22.7 %; Mean Corpuscular Hemoglobin 31.1 pg (25.0-34.0); Mean Corpuscular Hgb Conc 33.4 g/dL (32.0-36.0); Mean Platelet Volume 10.4 fL (9.4-12.4); Monocytes # (auto) 0.74 K/uL (0.11-0.59); Monocytes % (auto) 10.8 %; Neutrophils # (auto) 4.49 K/uL (1.40-6.50); Neutrophils % (auto) 65.3 %; Platelet Count 211 K/uL (130-400); RDW Standard Deviation 44.4 fL (36.4-46.3); Red Blood Count 3.86 M/uL (4.20-5.40); White Blood Count 6.87 K/ul (4.8-10.8)
[2023-06-21] MEDS: LEVOTHYROXINE SODIUM 25 MCG TABLET PO SCH (06:34)
[2023-06-21 06:35] LABS: BUN Creatinine Ratio 18.2 (10-20); Calcium 8.3 mg/dl (8.6-10.3); Creatinine Clr Calc Pharmacy 90.1 ml/min; Est GFR (African American) 116.1 ml/min; Est GFR (Non-African American) 100.1 ml/min; Potassium 3.3 mmol/L (3.5-5.1)
[2023-06-21 06:45] LABS: INR 1.8 (0.9-1.1); Prothrombin Time 18.7 Seconds (9.0-12.0)
[2023-06-21] MEDS: predniSONE 20 MG TAB PO SCH (07:55)
[2023-06-21] MEDS: LUBIPROSTONE 8 MCG CAP PO SCH ×2 (07:55→21:37)
[2023-06-21] MEDS: LORazepam 1 MG TAB PO SCH ×2 (07:55→21:46)
[2023-06-21] MEDS: UMECLIDINIUM BROMIDE 62.5MCG/BLISTER 7 PUFFS/INHALER INH SCH (07:56)
[2023-06-21] MEDS: AZITHROMYCIN 250 MG in DEXTROSE 5% 250 ML IV SCH (07:56)
[2023-06-21] MEDS: PANTOprazole 40 MG in SYRINGE 0 ML IV SCH (09:56)
--- NOTE | 2023-06-21 13:27 | Hospitalist Progress Note ---
Date of Service June 21, 2023 Assessment & Plan (1) Acute respiratory failure with hypoxia and hypercarbia: Plan: Pt is a 73 yo F with PMH chronic hypoxic respiratory failure on home oxygen, COPD, FVL mutation, hypothyroidism, and GERD, who presented to emergency room via ambulance after being found unconscious. Initially requiring BiPAP, but now stable and saturating well on oxygen via nasal cannula. Admitted for management of acute on chronic hypoxic and hypercarbic respiratory failure in the setting of COPD, RSV infection. Today, PT/OT able to access pt and recommended rehab. Pt at first refused. Pt seen later today with family present including that she lives with, and pt informed there is concern with just the two of them living together that she may go home and fall or further decondition if too weak to move around much. Eventually, pt agreeable to rehab with preference for [facility]. Case made aware. Pending placement. On warfarin 4mg daily, home dose. Acute Respiratory Failure with Hypoxia and Hypercarbia/RSV Infection/COPD Exacerbation -Given hypoxia and hypercarbia, presence of acute inflammatory markers, suspect mixed infectious/inflammatory etiology from COPD, RSV. -Received Solu-Medrol, DuoNeb in EMS prior to arrival. S/p doxycycline, ceftriaxone in the ED. -Initially on BiPAP but now saturating well on oxygen via 3 L nasal cannula. * Supplemental oxygen via nasal cannula (up to BiPAP if needed) * DuoNebs every 4 hours x 24 hours, then as needed * Continue home COPD regimen: Scheduled Breo + Incruse Ellipta, as needed Ventolin inhaler * Continue po steroids x5 days and Azithromycin 250 mg daily x 4 days starting 06/18/2023 for COPD exac Sinus Tachycardia - 2 episodes of sinus tach into 190s noted yesterday - reviewed cardiology note from 05/28, this has occurred before - metoprolol TID was held on admission for hypotension, but restarted yesterday and no events since Elevated troponin -Noted on admission; No angina. Likely demand ischemia given primary pulmonary process. -Seen earlier this month for labile hypertension, sinus tachycardia (see below) by [facility]. Stress echocardiogram was not performed then as there was low suspicion for myocardial ischemia. - elevation from admission had plateaued, so elevation then was likely secondary to demand ischemia from hypoxia on admission Heterozygous Factor V Leiden mutation -History of DVT x 3. Chronically on warfarin (3 mg on Saturday, 4 mg daily rest of the week). -Follows [facility] anticoagulation clinic (target INR 2-3) with PT/INR drawn monthly. INR of 4.0 on admission. Warfarin held. * warfarin restarted Labile hypertension/sinus tachycardia -Seen at [facility] cardiology clinic in early May for exertional tachy- palpitations thought to be hypoxemia-induced sinus tachycardia. -Low suspicion for myocardial ischemia at that visit thought to be "no immediate role for stress testing." -Prescribed as needed clonidine, scheduled metoprolol succinate 25 mg 3 times daily. * Holding clonidine, metoprolol succinate for now given soft blood pressures * Continue to monitor GERD -Takes omeprazole 20 mg at home. * IV pantoprazole 40 mg daily * As needed IV famotidine 20 mg every 12 hours Anxiety disorder -Takes lorazepam 1 mg p.o. twice daily ([facility], prescription last filled 06/03/2023) * Continue home lorazepam Hypothyroidism * Home levothyroxine 37.5 mcg daily DVT Prophylaxis: Warfarin IVF: NS 80ml/hr stopped today as pt tolerates oral intake (2) RSV infection: (3) COPD exacerbation: (4) Elevated troponin: (5) Factor 5 Leiden mutation, heterozygous: (6) Labile hypertension: (7) Sinus tachycardia: (8) Acid reflux: (9) Anxiety disorder: (10) Hypothyroidism: Admission and Anticipated Discharge Date Admission Date: June 17, 2023 Supervising Physician Co-Signing Physician Notes I personally examined the patient and verified pat points of history and exam, discussed case, and agree with decision making and plan documented by Dr. Laury owusu. Patient reports improvement in breathing, current oxygen requirement 5 L, home b/l reported 3-5L. Decreased and coarse breath sounds diffusely. Patient agreeable to rehabilitation at this time. We discussed her difficulties with weight loss contributing to deconditioning and decreased strength as well as the importance of of nutritional approach and hydration. Subjective Pt is a 73 yo F with PMH chronic hypoxic respiratory failure on home oxygen, COPD, FVL mutation, hypothyroidism, and GERD, who presented to emergency room via ambulance after being found unconscious. Initially requiring BiPAP, but now stable and saturating well on oxygen via nasal cannula. Admitted for management of acute on chronic hypoxic and hypercarbic respiratory failure in the setting of COPD, RSV infection. Today, pt states that she is feeling good. Her breathing is at her baseline and she is not SOB and has no chest pain. Tolerating diet. No questions or complaints at this time. Review of Systems Review of Systems: As per HPI Physical Exam Physical Exam: General:Alert and oriented, no acute distress, HEENT: Normocephalic, moist oral mucosa, Cardio: Regular rate and rhythm, Resp:Lungs clear to auscultation b/l, poor air movement throughout all lung sesay noted Skin: Warm, pink, dry, Results & Data Results & Data Vital Signs (Past 12 Hours) Vital Signs Temp Pulse Pulse Resp BP BP Pulse Ox 06/21/23 10:57 36.7 C 81 20 135/66 97 06/21/23 08:39 06/21/23 08:37 70 06/21/23 07:56 36.8 C 73 18 139/66 93 06/21/23 02:33 37.2 C 71 20 109/65 95 O2 Del Method O2 Flow Rate 06/21/23 10:57 Nasal Cannula 5 06/21/23 08:39 Nasal Cannula 5 06/21/23 08:37 06/21/23 07:56 Nasal Cannula 5 06/21/23 02:33 Nasal Cannula 5 Resident Activity Tracking Resident Involvement: Resident Care Provided Care Provided: Adult Hospital Medicine (8) Acid reflux Esophagitis presence: esophagitis presence not specified Qualified Code(s): K21.9 - Gastro-esophageal reflux disease without esophagitis (9) Anxiety disorder Anxiety disorder type: unspecified anxiety disorder Qualified Code(s): F41.9 - Anxiety disorder, unspecified (10) Hypothyroidism Hypothyroidism type: unspecified Qualified Code(s): E03.9 - Hypothyroidism, unspecified
[2023-06-21] MEDS: WARFARIN SOD 4 MG TAB PO SCH (15:19)
[2023-06-21] MEDS: FLUTICASONE/VILANTEROL 100/25MCG 14 PUFFS/INHALER INH SCH (21:37)
[2023-06-21] MEDS: diphenhydrAMINE Capsule 25 MG CAP PO SCH (21:37)
[2023-06-21] MEDS: ACETAMINOPHEN 500 MG TAB PO PRN (21:45)
[2023-06-21] MEDS: MELATONIN 3 MG TAB PO PRN (21:46)
[2023-06-22] MEDS: LEVOTHYROXINE SODIUM 25 MCG TABLET PO SCH (06:10)
--- NOTE | 2023-06-22 06:58 | Hospitalist Progress Note ---
Date of Service June 22, 2023 Assessment & Plan (1) Acute respiratory failure with hypoxia and hypercarbia: Plan: Pt is a 73 yo F with PMH chronic hypoxic respiratory failure on home oxygen, COPD, FVL mutation, hypothyroidism, and GERD, who presented to emergency room via ambulance after being found unconscious. Initially requiring BiPAP, but now stable and saturating well on oxygen via nasal cannula. Admitted for management of acute on chronic hypoxic and hypercarbic respiratory failure in the setting of COPD, RSV infection. Today, awaiting placement to rehab for this pt. INR 2.3, continue current dose of warfarin which is her home dose (takes 3 mg on Saturday). CO2 level noted to be elevated, which is consistent with severe COPD that this pt is known to have, and is not at this point a concern for significant acidosis. Potassium low today and repleted. On home oxygen requirement of 5L. On warfarin 4mg daily, home dose. Acute Respiratory Failure with Hypoxia and Hypercarbia/RSV Infection/COPD Exacerbation -Given hypoxia and hypercarbia, presence of acute inflammatory markers, suspect mixed infectious/inflammatory etiology from COPD, RSV. -Received Solu-Medrol, DuoNeb in EMS prior to arrival. S/p doxycycline, ceftriaxone in the ED. -Initially on BiPAP but now saturating well on oxygen via 3 L nasal cannula. * Supplemental oxygen via nasal cannula (up to BiPAP if needed) * DuoNebs every 4 hours x 24 hours, then as needed * Continue home COPD regimen: Scheduled Breo + Incruse Ellipta, as needed Ventolin inhaler * Continue po steroids x5 days and Azithromycin 250 mg daily x 4 days starting 06/18/2023 for COPD exac, last day of azithro today and last day of pred tomorrow Hypokalemia - K+ today 3.3, - will replete via 40 mEq once and recheck tomorrow am Sinus Tachycardia - 2 episodes of sinus tach into 190s noted yesterday - reviewed cardiology note from 05/28, this has occurred before - metoprolol TID was held on admission for hypotension, but restarted yesterday and no events since Elevated troponin -Noted on admission; No angina. Likely demand ischemia given primary pulmonary process. -Seen earlier this month for labile hypertension, sinus tachycardia (see below) by [facility]. Stress echocardiogram was not performed then as there was low suspicion for myocardial ischemia. - elevation from admission had plateaued, so elevation then was likely secondary to demand ischemia from hypoxia on admission Heterozygous Factor V Leiden mutation -History of DVT x 3. Chronically on warfarin (3 mg on Saturday, 4 mg daily rest of the week). -Follows [facility] anticoagulation clinic (target INR 2-3) with PT/INR drawn monthly. INR of 4.0 on admission. Warfarin held. * continue home warfarin Labile hypertension/sinus tachycardia -[place] [facility] [place] early [place] for exertional tachy-palpitations thought to be hypoxemia-induced sinus tachycardia. -Low suspicion for myocardial ischemia at that visit thought to be "no immediate role for stress testing." -Prescribed as needed clonidine, scheduled metoprolol succinate 25 mg 3 times daily. * Holding clonidine, metoprolol succinate for now given soft blood pressures * Continue to monitor GERD -Takes omeprazole 20 mg at home. * IV pantoprazole 40 mg daily * As needed IV famotidine 20 mg every 12 hours Anxiety disorder -Takes lorazepam 1 mg p.o. twice daily ([facility], [facility] last filled 06/03/2023) * Continue home lorazepam Hypothyroidism * Home levothyroxine 37.5 mcg daily DVT Prophylaxis: Home Warfarin IVF: none (2) RSV infection: (3) COPD exacerbation: (4) Elevated troponin: (5) Factor 5 Leiden mutation, heterozygous: (6) Labile hypertension: (7) Sinus tachycardia: (8) Acid reflux: (9) Anxiety disorder: (10) Hypothyroidism: Admission and Anticipated Discharge Date Admission Date: June 17, 2023 Supervising Physician Co-Signing Physician Notes I personally examined the patient and verified pat points of history and exam, discussed case, and agree with decision making and plan documented by Dr. Reddy. Discussed importance of incentive spirometer with patient. She remains at 5 L oxygen requirement, home baseline 3 to 5 L per patient's report. Patient states that if she cannot go to rehab in the next day or so that she would like to go home. We discussed the importance of smoking cessation and concern for 's continued smoking inside the house when she returns. Subjective Pt is a 73 yo F with PMH chronic hypoxic respiratory failure on home oxygen, C OPD, FVL mutation, hypothyroidism, and GERD, who presented to emergency room via ambulance after being found unconscious. Initially requiring BiPAP, but now stable and saturating well on oxygen via nasal cannula. Admitted for management of acute on chronic hypoxic and hypercarbic respiratory failure in the setting of COPD, RSV infection. Today, pt states she is feeling fine. She states case management told her she may not hear back from rehab places until Saturday and pt comments that she is not sure if she is willing to wait that long. She states that she will give us today. She states her breathing still feels about baseline to her, eating well and no acute questions or complaints at this time. Review of Systems Review of Systems: As per HPI Physical Exam Physical Exam: General:Alert and oriented, no acute distress, HEENT: Normocephalic, moist oral mucosa, Cardio: Regular rate and rhythm, Resp:Poor air movement throughout all lung sesay noted Skin: Warm, pink, dry, Results & Data Results & Data Vital Signs (Past 12 Hours) Vital Signs Temp Pulse Pulse Resp BP Pulse Ox O2 Del Method 06/22/23 03:00 36.6 C 73 19 121/67 99 Nasal Cannula 06/22/23 00:05 85 06/21/23 23:00 36.9 C 74 18 134/69 99 Nasal Cannula 06/21/23 20:25 Nasal Cannula 06/21/23 19:00 36.8 C 79 15 127/74 99 Nasal Cannula O2 Flow Rate 06/22/23 03:00 06/22/23 00:05 06/21/23 23:00 06/21/23 20:25 5 06/21/23 19:00 Resident Activity Tracking Resident Involvement: Resident Care Provided Care Provided: Adult Hospital Medicine (8) Acid reflux Esophagitis presence: esophagitis presence not specified Qualified Code(s): K21.9 - Gastro-esophageal reflux disease without esophagitis (9) Anxiety disorder Anxiety disorder type: unspecified anxiety disorder Qualified Code(s): F41.9 - Anxiety disorder, unspecified (10) Hypothyroidism Hypothyroidism type: unspecified Qualified Code(s): E03.9 - Hypothyroidism, unspecified
[2023-06-22 07:11] LABS: Basophils # (auto) 0.02 K/uL (0.00-0.20); Basophils % (auto) 0.4 %; Eosinophils # (auto) 0.06 K/uL (0.00-0.50); Eosinophils % (auto) 1.2 %; Hematocrit (blood only) 37.4 % (37.0-47.0); Hemoglobin 12.6 g/dl (12.0-16.0); Immature Granulocytes # (auto) 0.02 K/uL (0.01-0.20); Immature Granulocytes % (auto) 0.4 %; Lymphocytes # (auto) 1.71 K/uL (1.20-3.40); Lymphocytes % (auto) 33.1 %; Mean Corpuscular Hemoglobin 31.1 pg (25.0-34.0); Mean Corpuscular Hgb Conc 33.7 g/dL (32.0-36.0); Mean Corpuscular Volume 92.3 fL (80.0-100.0); Mean Platelet Volume 9.9 fL (9.4-12.4); Monocytes # (auto) 0.59 K/uL (0.11-0.59); Monocytes % (auto) 11.4 %; Neutrophils # (auto) 2.76 K/uL (1.40-6.50); Neutrophils % (auto) 53.5 %; Platelet Count 199 K/uL (130-400); RDW Coefficient of Variation 13.1 % (11.5-14.5); RDW Standard Deviation 44.5 fL (36.4-46.3); Red Blood Count 4.05 M/uL (4.20-5.40); White Blood Count 5.16 K/ul (4.8-10.8)
[2023-06-22 07:40] LABS: BUN Creatinine Ratio 12.3 (10-20); Calcium 8.6 mg/dl (8.6-10.3); Creatinine Clr Calc Pharmacy 69.5 ml/min; Est GFR (African American) 106.6 ml/min; Potassium 3.3 mmol/L (3.5-5.1)
[2023-06-22 07:49] LABS: INR 2.3 (0.9-1.1); Prothrombin Time 24.3 Seconds (9.0-12.0)
[2023-06-22] MEDS ORDERED: POTASSIUM CHLORIDE CRTAB 20 MEQ TABCR PO STA (09:05)
[2023-06-22] MEDS: predniSONE 20 MG TAB PO SCH (09:35)
[2023-06-22] MEDS: LUBIPROSTONE 8 MCG CAP PO SCH ×2 (09:36→21:29)
[2023-06-22] MEDS: UMECLIDINIUM BROMIDE 62.5MCG/BLISTER 7 PUFFS/INHALER INH SCH (09:37)
[2023-06-22] MEDS: LORazepam 1 MG TAB PO SCH ×2 (09:49→21:35)
[2023-06-22] MEDS: PANTOprazole 40 MG in SYRINGE 0 ML IV SCH (13:50)
[2023-06-22] MEDS: WARFARIN SOD 4 MG TAB PO SCH (17:15)
[2023-06-22] MEDS: diphenhydrAMINE Capsule 25 MG CAP PO SCH (21:28)
[2023-06-22] MEDS: FLUTICASONE/VILANTEROL 100/25MCG 14 PUFFS/INHALER INH SCH (21:28)
[2023-06-22] MEDS: MELATONIN 3 MG TAB PO PRN (21:35)
[2023-06-23] MEDS: LEVOTHYROXINE SODIUM 25 MCG TABLET PO SCH (06:29)
[2023-06-23 06:37] LABS: Basophils # (auto) 0.02 K/uL (0.00-0.20); Basophils % (auto) 0.3 %; Eosinophils # (auto) 0.05 K/uL (0.00-0.50); Eosinophils % (auto) 0.8 %; Hematocrit (blood only) 39.3 % (37.0-47.0); Hemoglobin 13.3 g/dl (12.0-16.0); Immature Granulocytes # (auto) 0.03 K/uL (0.01-0.20); Immature Granulocytes % (auto) 0.5 %; Lymphocytes # (auto) 1.94 K/uL (1.20-3.40); Lymphocytes % (auto) 29.7 %; Mean Corpuscular Hgb Conc 33.8 g/dL (32.0-36.0); Mean Corpuscular Volume 91.6 fL (80.0-100.0); Mean Platelet Volume 10.7 fL (9.4-12.4); Monocytes # (auto) 0.73 K/uL (0.11-0.59); Monocytes % (auto) 11.2 %; Neutrophils # (auto) 3.77 K/uL (1.40-6.50); Neutrophils % (auto) 57.5 %; Platelet Count 258 K/uL (130-400); RDW Coefficient of Variation 13.1 % (11.5-14.5); RDW Standard Deviation 44.1 fL (36.4-46.3); Red Blood Count 4.29 M/uL (4.20-5.40); White Blood Count 6.54 K/ul (4.8-10.8)
[2023-06-23 06:59] LABS: BUN Creatinine Ratio 15.7 (10-20); Calcium 8.6 mg/dl (8.6-10.3); Creatinine Clr Calc Pharmacy 76.6 ml/min; Est GFR (African American) 110.6 ml/min; Est GFR (Non-African American) 95.4 ml/min; Potassium 3.4 mmol/L (3.5-5.1)
[2023-06-23] MEDS ORDERED: POTASSIUM CHLORIDE CRTAB 20 MEQ TABCR PO STA (07:00)
--- NOTE | 2023-06-23 07:00 | Hospitalist Progress Note ---
Date of Service June 23, 2023 Assessment & Plan (1) Acute respiratory failure with hypoxia and hypercarbia: Plan: Pt is a 73 yo F with PMH chronic hypoxic respiratory failure on home oxygen, COPD, FVL mutation, hypothyroidism, and GERD, who presented to emergency room via ambulance after being found unconscious. Initially requiring BiPAP, but now stable and saturating well on oxygen via nasal cannula. Admitted for management of acute on chronic hypoxic and hypercarbic respiratory failure in the setting of COPD, RSV infection. Today, will switch diet to regular since pt has her dentures. Otherwise, awaiting placement to rehab. On warfarin 4mg daily, home dose. To get 3mg on Saturday per home dosing. Acute Respiratory Failure with Hypoxia and Hypercarbia/RSV Infection/COPD Exacerbation -Given hypoxia and hypercarbia, presence of acute inflammatory markers, suspect mixed infectious/inflammatory etiology from COPD, RSV. -Received Solu-Medrol, DuoNeb in EMS prior to arrival. S/p doxycycline, ceftriaxone in the ED. -Initially on BiPAP but now saturating well on oxygen via 3 L nasal cannula. * Supplemental oxygen via nasal cannula (up to BiPAP if needed) * DuoNebs every 4 hours x 24 hours, then as needed * Continue home COPD regimen: Scheduled Breo + Incruse Ellipta, as needed Ventolin inhaler * Continue po steroids x5 days and Azithromycin 250 mg daily x 4 days starting 06/18/2023 for COPD exac, last day of azithro today and last day of pred tomorrow Hypokalemia - K+ today 3.3, - will replete via 40 mEq once and recheck tomorrow am Sinus Tachycardia - 2 episodes of sinus tach into 190s noted yesterday - reviewed cardiology note from 05/28, this has occurred before - metoprolol TID was held on admission for hypotension, but restarted yesterday and no events since Elevated troponin -Noted on admission; No angina. Likely demand ischemia given primary pulmonary process. -Seen earlier this month for labile hypertension, sinus tachycardia (see below) by [facility]. Stress echocardiogram was not performed then as there was low suspicion for myocardial ischemia. - elevation from admission had plateaued, so elevation then was likely secondary to demand ischemia from hypoxia on admission Heterozygous Factor V Leiden mutation -History of DVT x 3. Chronically on warfarin (3 mg on Saturday, 4 mg daily rest of the week). -Follows [facility] anticoagulation clinic (target INR 2-3) with PT/INR drawn monthly. INR of 4.0 on admission. Warfarin held. * continue home warfarin Labile hypertension/sinus tachycardia -Seen at [facility] cardiology clinic in early May for exertional tachy- palpitations thought to be hypoxemia-induced sinus tachycardia. -Low suspicion for myocardial ischemia at that visit thought to be "no immediate role for stress testing." -Prescribed as needed clonidine, scheduled metoprolol succinate 25 mg 3 times daily. * Holding clonidine, metoprolol succinate for now given soft blood pressures * Continue to monitor GERD -Takes omeprazole 20 mg at home. * IV pantoprazole 40 mg daily * As needed IV famotidine 20 mg every 12 hours Anxiety disorder -Takes lorazepam 1 mg p.o. twice daily ([facility], [facility] last filled 06/03/2023) * Continue home lorazepam Hypothyroidism * Home levothyroxine 37.5 mcg daily DVT Prophylaxis: Home Warfarin IVF: none (2) RSV infection: (3) COPD exacerbation: (4) Elevated troponin: (5) Factor 5 Leiden mutation, heterozygous: (6) Labile hypertension: (7) Sinus tachycardia: (8) Acid reflux: (9) Anxiety disorder: (10) Hypothyroidism: Admission and Anticipated Discharge Date Admission Date: June 17, 2023 Supervising Physician Co-Signing Physician Notes I personally examined the patient and verified pat points of history and exam, discussed case, and agree with decision making and plan documented by Dr. Reddy. Oxygen requirement 3L today, at home baseline. Reviewed importance of smoking cessation and concern for 's continued smoking inside the house when she returns. At present, case management working on authorization for recommendations of rehabilitation at discharge. Subjective Pt is a 73 yo F with PMH chronic hypoxic respiratory failure on home oxygen, COPD, FVL mutation, hypothyroidism, and GERD, who presented to emergency room via ambulance after being found unconscious. Initially requiring BiPAP, but now stable and saturating well on oxygen via nasal cannula. Admitted for management of acute on chronic hypoxic and hypercarbic respiratory failure in the setting of COPD, RSV infection. Today, pt states she feels fine. She does state that she is getting tired of having minced meals 3x a day and that she now has her dentures so she would like full food items. Asked her if she thought she could use a nicotine patch if she is having any cravings since she was smoking 7 cigarettes a day before coming (down from 06/25 ppd) but she states she is allergic to latex and that the patches give her a very itchy rash. She states she has been doing fine without nicotine supplementation and so she does not want anything at this time aside from meals without minced and moist foods. No further questions or complaints at this time. She is agreeable to wait until Saturday for rehab placement but states she will not wait past that. Review of Systems Review of Systems: As per HPI Physical Exam Physical Exam: General:Alert and oriented, no acute distress, HEENT: Normocephalic, moist oral mucosa, Cardio: Regular rate and rhythm, Resp:Poor air movement throughout all lung sesay noted, barrel chest noted Skin: Warm, pink, dry, Results & Data Results & Data Vital Signs (Past 12 Hours) Vital Signs Temp Pulse Pulse Resp BP Pulse Ox O2 Del Method 06/23/23 04:27 37.2 C 66 16 118/58 L 100 Nasal Cannula 06/22/23 23:40 86 06/22/23 23:11 37.1 C 83 18 130/76 97 Nasal Cannula 06/22/23 21:00 Nasal Cannula 06/22/23 19:56 36.9 C 94 H 18 116/73 97 Nasal Cannula O2 Flow Rate 06/23/23 04:27 3.0 06/22/23 23:40 06/22/23 23:11 3.0 06/22/23 21:00 5 06/22/23 19:56 3 Resident Activity Tracking Resident Involvement: Resident Care Provided Care Provided: Adult Hospital Medicine (8) Acid reflux Esophagitis presence: esophagitis presence not specified Qualified Code(s): K21.9 - Gastro-esophageal reflux disease without esophagitis (9) Anxiety disorder Anxiety disorder type: unspecified anxiety disorder Qualified Code(s): F41.9 - Anxiety disorder, unspecified (10) Hypothyroidism Hypothyroidism type: unspecified Qualified Code(s): E03.9 - Hypothyroidism, unspecified
[2023-06-23] MEDS: LORazepam 1 MG TAB PO SCH ×2 (09:21→21:22)
[2023-06-23] MEDS: LUBIPROSTONE 8 MCG CAP PO SCH ×2 (09:22→21:19)
[2023-06-23] MEDS: UMECLIDINIUM BROMIDE 62.5MCG/BLISTER 7 PUFFS/INHALER INH SCH (09:22)
[2023-06-23] MEDS: PANTOprazole 40 MG in SYRINGE 0 ML IV SCH (11:26)
[2023-06-23] MEDS: WARFARIN SOD 4 MG TAB PO SCH (15:57)
[2023-06-23] MEDS: diphenhydrAMINE Capsule 25 MG CAP PO SCH (21:18)
[2023-06-23] MEDS: FLUTICASONE/VILANTEROL 100/25MCG 14 PUFFS/INHALER INH SCH (21:18)
[2023-06-23] MEDS: MELATONIN 3 MG TAB PO PRN (21:22)
[2023-06-24] MEDS: LEVOTHYROXINE SODIUM 25 MCG TABLET PO SCH (05:02)
[2023-06-24 06:17] LABS: Basophils # (auto) 0.06 K/uL (0.00-0.20); Basophils % (auto) 0.9 %; Eosinophils # (auto) 0.13 K/uL (0.00-0.50); Hematocrit (blood only) 37.8 % (37.0-47.0); Hemoglobin 12.5 g/dl (12.0-16.0); Immature Granulocytes # (auto) 0.05 K/uL (0.01-0.20); Immature Granulocytes % (auto) 0.8 %; Lymphocytes # (auto) 1.52 K/uL (1.20-3.40); Lymphocytes % (auto) 23.5 %; Mean Corpuscular Hemoglobin 31.3 pg (25.0-34.0); Mean Corpuscular Hgb Conc 33.1 g/dL (32.0-36.0); Mean Corpuscular Volume 94.5 fL (80.0-100.0); Mean Platelet Volume 10.2 fL (9.4-12.4); Monocytes # (auto) 0.75 K/uL (0.11-0.59); Monocytes % (auto) 11.6 %; Neutrophils # (auto) 3.97 K/uL (1.40-6.50); Neutrophils % (auto) 61.2 %; Platelet Count 260 K/uL (130-400); RDW Coefficient of Variation 13.2 % (11.5-14.5); RDW Standard Deviation 46.4 fL (36.4-46.3); White Blood Count 6.48 K/ul (4.8-10.8)
[2023-06-24 06:19] LABS: BUN Creatinine Ratio 14.3 (10-20); Calcium 8.3 mg/dl (8.6-10.3); Creatinine Clr Calc Pharmacy 70.8 ml/min; Est GFR (African American) 107.2 ml/min; Est GFR (Non-African American) 92.5 ml/min; Potassium 3.6 mmol/L (3.5-5.1)
[2023-06-24 06:28] LABS: INR 2.8 (0.9-1.1); Prothrombin Time 28.8 Seconds (9.0-12.0)
--- NOTE | 2023-06-24 07:03 | Hospitalist Progress Note ---
Date of Service June 24, 2023 Assessment & Plan (1) Acute respiratory failure with hypoxia and hypercarbia: Plan: Pt is a 73 yo F with PMH chronic hypoxic respiratory failure on home oxygen, COPD, FVL mutation, hypothyroidism, and GERD, who presented to emergency room via ambulance after being found unconscious. Initially requiring BiPAP, but now stable and saturating well on oxygen via nasal cannula. Admitted for management of acute on chronic hypoxic and hypercarbic respiratory failure in the setting of COPD, RSV infection. Today, awaiting placement to rehab. No medical changes. On warfarin 4mg daily, home dose. To get 3mg on Saturday per home dosing. Acute Respiratory Failure with Hypoxia and Hypercarbia/RSV Infection/COPD Exacerbation -Given hypoxia and hypercarbia, presence of acute inflammatory markers, suspect mixed infectious/inflammatory etiology from COPD, RSV. -Received Solu-Medrol, DuoNeb in EMS prior to arrival. S/p doxycycline, ceftriaxone in the ED. -Initially on BiPAP but now saturating well on oxygen via 3 L nasal cannula. * Supplemental oxygen via nasal cannula (up to BiPAP if needed) * DuoNebs every 4 hours x 24 hours, then as needed * Continue home COPD regimen: Scheduled Breo + Incruse Ellipta, as needed Ventolin inhaler * Continue po steroids x5 days and Azithromycin 250 mg daily x 4 days starting 06/18/2023 for COPD exac, last day of azithro today and last day of pred tomorrow Sinus Tachycardia - 2 episodes of sinus tach into 190s noted - reviewed cardiology note from 05/28, this has occurred before - metoprolol TID was held on admission for hypotension, but restarted and no events since Elevated troponin -Noted on admission; No angina. Likely demand ischemia given primary pulmonary process. -Seen earlier this month for labile hypertension, sinus tachycardia (see below) by [facility]. Stress echocardiogram was not performed then as there was low suspicion for myocardial ischemia. - elevation from admission had plateaued, so elevation then was likely secondary to demand ischemia from hypoxia on admission Heterozygous Factor V Leiden mutation -History of DVT x 3. Chronically on warfarin (3 mg on Saturday, 4 mg daily rest of the week). -Follows [facility] anticoagulation clinic (target INR 2-3) with PT/INR drawn monthly. INR of 4.0 on admission. Warfarin held. * continue home warfarin Labile hypertension/sinus tachycardia -Seen at [facility] cardiology clinic in early May for exertional tachy- palpitations thought to be hypoxemia-induced sinus tachycardia. -Low suspicion for myocardial ischemia at that visit thought to be "no immediate role for stress testing." -Prescribed as needed clonidine, scheduled metoprolol succinate 25 mg 3 times daily. * Holding clonidine, metoprolol succinate for now given soft blood pressures * Continue to monitor GERD -Takes omeprazole 20 mg at home. * IV pantoprazole 40 mg daily * As needed IV famotidine 20 mg every 12 hours Anxiety disorder -Takes lorazepam 1 mg p.o. twice daily (reviewed [facility] database, prescription last filled 06/03/2023) * Continue home lorazepam Hypothyroidism * Home levothyroxine 37.5 mcg daily DVT Prophylaxis: Home Warfarin IVF: none (2) RSV infection: (3) COPD exacerbation: (4) Elevated troponin: (5) Factor 5 Leiden mutation, heterozygous: (6) Labile hypertension: (7) Sinus tachycardia: (8) Acid reflux: (9) Anxiety disorder: (10) Hypothyroidism: Admission and Anticipated Discharge Date Admission Date: June 17, 2023 Supervising Physician Co-Signing Physician Notes I personally examined the patient and verified all pat points of history and exa m, discussed case, and agree with decision making with Dr Reddy Feeling okay from breathing. Awaiting rehab. Discussed bureaucracy of placement. Answered all questions the best my ability. Vitals noted, in general she is awake and alert pleasant no distress. HEENT normocephalic atraumatic mucous membranes moist. Breathing unlabored no accessory muscle use good effort. Skin shows no rashes no pallor or icterus. Neuro without focal deficits. RSV/COPDimproving. Continue current care. Awaiting rehab placement. Anticoagulated otherwise as above Subjective Pt is a 73 yo F with PMH chronic hypoxic respiratory failure on home oxygen, COPD, FVL mutation, hypothyroidism, and GERD, who presented to emergency room via ambulance after being found unconscious. Initially requiring BiPAP, but now stable and saturating well on oxygen via nasal cannula. Admitted for management of acute on chronic hypoxic and hypercarbic respiratory failure in the setting of COPD, RSV infection. Today, no questions or complaints. She states she is actually feeling more energetic and like her breathing is improved. She is still agreeable to rehab. No chest pain or SOB. Tolerating diet without issue. Review of Systems Review of Systems: As per HPI Physical Exam Physical Exam: General:Alert and oriented, no acute distress, HEENT: Normocephalic, moist oral mucosa, Cardio: Regular rate and rhythm, Resp:Poor air movement throughout all lung sesay noted but slightly improved from yesterday, barrel chest noted Skin: Warm, pink, dry, Results & Data Results & Data Vital Signs (Past 12 Hours) Vital Signs Temp Pulse Pulse Resp BP BP Pulse Ox 06/24/23 03:50 37 C 70 18 112/61 99 06/23/23 23:11 79 06/23/23 21:24 06/23/23 21:14 36.9 C 90 18 130/76 96 06/23/23 19:17 36.9 C 84 19 121/70 97 O2 Del Method O2 Flow Rate 06/24/23 03:50 Room Air 06/23/23 23:11 06/23/23 21:24 Nasal Cannula 3 06/23/23 21:14 Nasal Cannula 3 06/23/23 19:17 Nasal Cannula 3.0 Resident Activity Tracking Resident Involvement: Resident Care Provided Care Provided: Adult Hospital Medicine (8) Acid reflux Esophagitis presence: esophagitis presence not specified Qualified Code(s): K21.9 - Gastro-esophageal reflux disease without esophagitis (9) Anxiety disorder Anxiety disorder type: unspecified anxiety disorder Qualified Code(s): F41.9 - Anxiety disorder, unspecified (10) Hypothyroidism Hypothyroidism type: unspecified Qualified Code(s): E03.9 - Hypothyroidism, unspecified
[2023-06-24] MEDS: UMECLIDINIUM BROMIDE 62.5MCG/BLISTER 7 PUFFS/INHALER INH SCH (07:38)
[2023-06-24] MEDS: LORazepam 1 MG TAB PO SCH ×2 (07:38→21:45)
[2023-06-24] MEDS: LUBIPROSTONE 8 MCG CAP PO SCH ×2 (07:39→21:46)
[2023-06-24] MEDS: PANTOprazole 40 MG in SYRINGE 0 ML IV SCH (11:44)
[2023-06-24] MEDS ORDERED: WARFARIN SOD 3 MG TAB PO SCH (16:00)
--- NOTE | 2023-06-24 17:59 | Billing Data ---
Date of Service June 24, 2023 Coding Level of Care Code 31112 SUB INP/OBS CARE
[2023-06-24] MEDS: diphenhydrAMINE Capsule 25 MG CAP PO SCH (21:46)
[2023-06-24] MEDS: FLUTICASONE/VILANTEROL 100/25MCG 14 PUFFS/INHALER INH SCH (21:47)
[2023-06-24] MEDS: MELATONIN 3 MG TAB PO PRN (21:49)
[2023-06-25 06:45] LABS: Basophils # (auto) 0.06 K/uL (0.00-0.20); Basophils % (auto) 0.8 %; Eosinophils # (auto) 0.17 K/uL (0.00-0.50); Eosinophils % (auto) 2.4 %; Hematocrit (blood only) 38.8 % (37.0-47.0); Hemoglobin 13.2 g/dl (12.0-16.0); Immature Granulocytes # (auto) 0.06 K/uL (0.01-0.20); Immature Granulocytes % (auto) 0.8 %; Lymphocytes # (auto) 1.61 K/uL (1.20-3.40); Lymphocytes % (auto) 22.5 %; Mean Corpuscular Hemoglobin 31.4 pg (25.0-34.0); Mean Corpuscular Volume 92.2 fL (80.0-100.0); Mean Platelet Volume 10.4 fL (9.4-12.4); Monocytes # (auto) 0.73 K/uL (0.11-0.59); Monocytes % (auto) 10.2 %; Neutrophils # (auto) 4.52 K/uL (1.40-6.50); Neutrophils % (auto) 63.3 %; Platelet Count 282 K/uL (130-400); RDW Coefficient of Variation 13.2 % (11.5-14.5); RDW Standard Deviation 45.4 fL (36.4-46.3); Red Blood Count 4.21 M/uL (4.20-5.40); White Blood Count 7.15 K/ul (4.8-10.8)
--- NOTE | 2023-06-25 06:58 | Hospitalist Progress Note ---
Date of Service June 25, 2023 Assessment & Plan (1) Acute respiratory failure with hypoxia and hypercarbia: Plan: Pt is a 73 yo F with PMH chronic hypoxic respiratory failure on home oxygen, COPD, FVL mutation, hypothyroidism, and GERD, who presented to emergency room via ambulance after being found unconscious. Initially requiring BiPAP, but now stable and saturating well on oxygen via nasal cannula. Admitted for management of acute on chronic hypoxic and hypercarbic respiratory failure in the setting of COPD, RSV infection. Today, awaiting placement to rehab. No medical changes. On warfarin 4mg daily, home dose. To get 3mg on Saturday per home dosing. Acute Respiratory Failure with Hypoxia and Hypercarbia/RSV Infection/COPD Exacerbation -Given hypoxia and hypercarbia, presence of acute inflammatory markers, suspect mixed infectious/inflammatory etiology from COPD, RSV. -Received Solu-Medrol, DuoNeb in EMS prior to arrival. S/p doxycycline, ceftriaxone in the ED. -Initially on BiPAP but now saturating well on oxygen via 3 L nasal cannula. * Supplemental oxygen via nasal cannula (up to BiPAP if needed) * DuoNebs every 4 hours x 24 hours, then as needed * Continue home COPD regimen: Scheduled Breo + Incruse Ellipta, as needed Ventolin inhaler * Continue po steroids x5 days and Azithromycin 250 mg daily x 4 days starting 06/18/2023 for COPD exac, last day of azithro today and last day of pred tomorrow Sinus Tachycardia - 2 episodes of sinus tach into 190s noted - reviewed cardiology note from 05/28, this has occurred before - metoprolol TID was held on admission for hypotension, but restarted and no events since Elevated troponin -Noted on admission; No angina. Likely demand ischemia given primary pulmonary process. -Seen earlier this month for labile hypertension, sinus tachycardia (see below) by [facility]. Stress echocardiogram was not performed then as there was low suspicion for myocardial ischemia. - elevation from admission had plateaued, so elevation then was likely secondary to demand ischemia from hypoxia on admission Heterozygous Factor V Leiden mutation -History of DVT x 3. Chronically on warfarin (3 mg on Saturday, 4 mg daily rest of the week). -Follows [facility] anticoagulation clinic (target INR 2-3) with PT/INR drawn monthly. INR of 4.0 on admission. Warfarin held. * continue home warfarin Labile hypertension/sinus tachycardia -Seen [place] [facility] [place] in early May for exertional tachy- palpitations thought to be hypoxemia-induced sinus tachycardia. -Low suspicion for myocardial ischemia at that visit thought to be "no immediate role for stress testing." -Prescribed as needed clonidine, scheduled metoprolol succinate 25 mg 3 times daily. * Holding clonidine, metoprolol succinate for now given soft blood pressures * Continue to monitor GERD -Takes omeprazole 20 mg at home. * IV pantoprazole 40 mg daily * As needed IV famotidine 20 mg every 12 hours Anxiety disorder -Takes lorazepam 1 mg p.o. twice daily (reviewed PDMP database, prescription last filled 06/03/2023) * Continue home lorazepam Hypothyroidism * Home levothyroxine 37.5 mcg daily DVT Prophylaxis: Home Warfarin IVF: none (2) RSV infection: (3) COPD exacerbation: (4) Elevated troponin: (5) Factor 5 Leiden mutation, heterozygous: (6) Labile hypertension: (7) Sinus tachycardia: (8) Acid reflux: (9) Anxiety disorder: (10) Hypothyroidism: Admission and Anticipated Discharge Date Admission Date: June 17, 2023 Subjective Pt is a 73 yo F with PMH chronic hypoxic respiratory failure on home oxygen, COPD, FVL mutation, hypothyroidism, and GERD, who presented to emergency room via ambulance after being found unconscious. Initially requiring BiPAP, but now stable and saturating well on oxygen via nasal cannula. Admitted for management of acute on chronic hypoxic and hypercarbic respiratory failure in the setting of COPD, RSV infection. Today, Review of Systems Review of Systems: As per HPI Physical Exam Physical Exam: General:Alert and oriented, no acute distress, HEENT: Normocephalic, moist oral mucosa, Cardio: Regular rate and rhythm, Resp:Poor air movement throughout all lung sesay noted but slightly improved from yesterday, barrel chest noted Skin: Warm, pink, dry, Results & Data Results & Data Vital Signs (Past 12 Hours) Vital Signs Temp Pulse Pulse Resp BP Pulse Ox O2 Del Method 06/25/23 03:25 36.8 C 80 18 119/72 97 Room Air 06/24/23 23:35 87 06/24/23 22:20 36.9 C 85 18 116/69 96 Nasal Cannula 06/24/23 19:31 36.7 C 93 H 18 134/80 94 Nasal Cannula 06/24/23 19:30 Nasal Cannula O2 Flow Rate 06/25/23 03:25 06/24/23 23:35 06/24/23 22:20 3 06/24/23 19:31 3 06/24/23 19:30 3 (8) Acid reflux Esophagitis presence: esophagitis presence not specified Qualified Code(s): K21.9 - Gastro-esophageal reflux disease without esophagitis (9) Anxiety disorder Anxiety disorder type: unspecified anxiety disorder Qualified Code(s): F41.9 - Anxiety disorder, unspecified (10) Hypothyroidism Hypothyroidism type: unspecified Qualified Code(s): E03.9 - Hypothyroidism, unspecified
[2023-06-25 07:04] LABS: BUN Creatinine Ratio 11.9 (10-20); Calcium 8.5 mg/dl (8.6-10.3); Creatinine Clr Calc Pharmacy 65.6 ml/min; Est GFR (African American) 105.4 ml/min; Est GFR (Non-African American) 90.9 ml/min; Potassium 3.6 mmol/L (3.5-5.1)
[2023-06-25 07:11] LABS: INR 2.4 (0.9-1.1); Prothrombin Time 25.1 Seconds (9.0-12.0)
[2023-06-25] MEDS: LEVOTHYROXINE SODIUM 25 MCG TABLET PO SCH (07:27)
[2023-06-25] MEDS: UMECLIDINIUM BROMIDE 62.5MCG/BLISTER 7 PUFFS/INHALER INH SCH (08:32)
[2023-06-25] MEDS: LUBIPROSTONE 8 MCG CAP PO SCH (08:32)
[2023-06-25] MEDS: LORazepam 1 MG TAB PO SCH (08:34)
--- NOTE | 2023-06-25 10:43 | Discharge Summary ---
Date of Service June 25, 2023 Admission HPI Per Admitting Provider Irene is a 73-year-old woman with a past medical history of chronic hypoxemic respiratory failure in the setting of COPD (on 2 L nasal cannula at home), hypothyroidism, heterozygous factor V Leiden mutation (hx of DVT x3) on warfarin, GERD, and labile hypertension, who presented to the emergency room via EMS after being found unconscious by her this morning. Per ED note, notes that she had an episode of bronchitis in the days prior. Otherwise, no other HPI available. An attempt to reach spouse by phone was not answered as of the writing of this note. In the ED, patient was found to be severely tachypneic (RR in the 30s) requiring BiPAP, and mildly hypotensive. Notable labs obtained during initial workup include: WBC-13.32 (neutrophilic predominance), ABG (pH-7.2, pCO2-55, pO2-73, HCO3-27), hs troponin-96.4, procalcitonin-1.06, lactate-1.4, INR-4.0. Urinalysis revealed 1+ hematuria, 2+ glucosuria, 1+ proteinuria, but was negative for nitrites, or leukocyte esterases. Respiratory viral panel returned positive for RSV. Head CT was negative for acute intracranial hemorrhage or infarct. Chest CTA noted no acute abnormality or evidence of pulmonary embolus (chronic diffuse centrilobular emphysema at bilateral apices). She received doses of empiric antibiotics (doxycycline, ceftriaxone), and normal saline boluses of 250 mL x 3. Hospitalist service was then consulted for admission. On admission bedside exam, patient was awake and responsive, though conversation was limited due to BiPAP. She appeared to be alert and oriented x 3. She reports some discomfort with the nonrebreather mask and some neck pain. Otherwise, nothing to report on ROS at this time. Admission Exam Per Admitting Provider General: Frail, fatigued appearing elderly woman in no acute distress. HEENT: PERRLA. Normal conjunctiva, anicteric sclera. Respiratory: Wearing BiPAP mask. Unable to auscultate. Cardiovascular: Unable to auscultate due to BiPAP machine (HR-80s on bedside personnel monitor). No pedal edema. GI: Did not palpate or auscultate due to BiPAP. Neuro: Alert and oriented x3. Principal Diagnosis Acute hypoxic respiratory failure secondary to RSV infection in COPD patient Discharge Exam General:Alert and oriented, no acute distress, HEENT: Normocephalic, moist oral mucosa, Cardio: Regular rate and rhythm, Resp:Poor air movement throughout all lung sesay noted but slightly improved from yesterday, barrel chest noted Skin: Warm, pink, dry, Discharge Data Allergies Allergy/AdvReac Type Severity Reaction Status Date / Time adhesive tape Allergy Intermediate Rash Verified 05/28/23 13:15 bacitracin Allergy Mild RASH Verified 05/28/23 13:15 latex Allergy Mild RASH Verified 05/28/23 13:15 neomycin Allergy Mild RASH Verified 05/28/23 13:15 polymyxin B Allergy Mild RASH Verified 05/28/23 13:15 levofloxacin [From Levaquin] AdvReac Severe N/V, dizzy Verified 05/28/23 13:15 Consultations 06/17/23 13:23 Consult Cardiology Routine Ordered Studies 06/17/23 06:37 CT head/brain wo con Stat 06/17/23 06:38 CT angio head w con Stat CT angio neck with con Stat 06/17/23 06:43 CT angio chest PE protocol Stat Hospital Course (1) Acute respiratory failure with hypoxia and hypercarbia: Pt is a 73 yo F with PMH chronic hypoxic respiratory failure on home oxygen, COPD, FVL mutation, hypothyroidism, and GERD, who presented to emergency room via ambulance after being found unconscious. Initially requiring BiPAP, but now stable and saturating well on oxygen via nasal cannula. Admitted for management of acute on chronic hypoxic and hypercarbic respiratory failure in the setting of COPD, RSV infection. PT reevaluated pt today and pt safe to go home with home PT/OT services. Pt is back on her home O2 requirement or better, been on 3L here and usually uses 5-6L at home. Pt is to f/u with pcp after D/C. Acute Respiratory Failure with Hypoxia and Hypercarbia/RSV Infection/COPD Exacerbation, resolved -Given hypoxia and hypercarbia, presence of acute inflammatory markers, suspect mixed infectious/inflammatory etiology from COPD, RSV. -Received Solu-Medrol, DuoNeb in EMS prior to arrival. S/p doxycycline, ceftriaxone in the ED. -Initially on BiPAP but now saturating well on oxygen via 3 L nasal cannula. * Supplemental oxygen via nasal cannula (up to BiPAP if needed) * DuoNebs every 4 hours x 24 hours, then as needed * Continue home COPD regimen: Scheduled Breo + Incruse Ellipta, as needed Ventolin inhaler * po steroids x5 days and Azithromycin 250 mg daily x 4 days starting 06/18/2023 for COPD exac, both finished Elevated troponin -Noted on admission; No angina. Likely demand ischemia given primary pulmonary process. -Seen earlier this month for labile hypertension, sinus tachycardia (see below) by [facility]. Stress echocardiogram was not performed then as there was low suspicion for myocardial ischemia. - elevation from admission had plateaued, so elevation then was likely secondary to demand ischemia from hypoxia on admission Heterozygous Factor V Leiden mutation -History of DVT x 3. Chronically on warfarin (3 mg on Saturday, 4 mg daily rest of the week). -Follows [facility] anticoagulation clinic (target INR 2-3) with PT/INR drawn monthly. INR of 4.0 on admission. Warfarin held. * continue home warfarin Labile hypertension/sinus tachycardia -[place] [facility] [place] for exertional tachy- palpitations thought to be hypoxemia-induced sinus tachycardia. -Low suspicion for myocardial ischemia at that visit thought to be "no immediate role for stress testing." -Prescribed as needed clonidine, scheduled metoprolol succinate 25 mg 3 times daily. - metoprolol TID was held on admission for hypotension, but restarted and no events since * continue home metoprolol GERD -Takes omeprazole 20 mg at home. * IV pantoprazole 40 mg daily while here, switch to home regime on D/C * As needed IV famotidine 20 mg every 12 hours Anxiety disorder -Takes lorazepam 1 mg p.o. twice daily ([facility], [facility] last [facility]/03/[facility]23) * Continue home lorazepam Hypothyroidism * Home levothyroxine 37.5 mcg daily (2) RSV infection: (3) COPD exacerbation: (4) Elevated troponin: (5) Factor 5 Leiden mutation, heterozygous: (6) Labile hypertension: (7) Sinus tachycardia: (8) Acid reflux: (9) Anxiety disorder: (10) Hypothyroidism: Total Time Total Time Spent Total Time Spent (In Minutes): <30 Discharge Plan Discharge Items Patient Disposition: Home - Self-Care Reason For Visit: ACUTE HYPOXIC RESPIRATORY FAILURE Discharge Diagnosis: Acute hypoxic respiratory failure secondary to RSV infection in COPD patient Activity: Per Instructions section Non-emergency contact: Primary Care Provider Call non-emergency contact if: you have any medication questions, your symptoms worsen and your temperature is above 101.5 Follow-up/Referrals: Nat Shankar DO [Primary Care Provider] - Diet: Regular Addtl Attending Provider Instructions: You were admitted for acute hypoxic respiratory failure secondary to RSV infection with a known history of COPD. You were treated with oxygen, steroids, and an antibiotic called azithromycin that we used for its' anti-inflammatory effects on the lungs. Your symptoms have improved and you are back to your baseline oxygen requirement or better at 3L, and we feel it is safe for you to return home. You may notice a lingering cough for weeks after an RSV infection. You should continue to feel about the same or better each day. If you start to feel worse or develop fevers, please contact your pcp. Please plan to follow-up with your primary care physician within 1 week of discharge from the hospital. Our field case manager is working to get you set up with home physical therapy and occupational therapy upon discharge from the hospital, and they should be contacting you sometime in the next 1-2 days. Medications: Your medication list has been reviewed and reconciled upon discharge to ensure accuracy and continuity of care. An updated list of all your medications is included with your hospital discharge paperwork. We have made no changes to your medications, so please resume your normal medication routine when you leave the hospital. Take your medications as instructed; do not skip a dose of your medicines. Make sure all of your doctors know every medicine you are taking (including [id number] medicines, vitamins, and supplements). Call your primary care provider before taking any new medicines (including over- the-counter medicines, vitamins, and supplements), because some of these may interact with your current medications, or may make your symptoms worse. Tell your primary care provider if you cannot afford your medications. Activity: You can do normal everyday activities as your body allows. Take rest breaks if you feel tired. Do not overexert. Stop activity if you have pain, shortness of breath or feel dizzy. Follow-up appointments: Make an appointment with your primary care physician within one week of discharge. A copy of this summary will be sent to them. Every time you see your primary care physician, or any other doctor, bring your medication list, and a list of questions. CONTACT YOUR PRIMARY CARE PROVIDER if you experience any of the following: Shortness of breath or difficulty breathing Swelling of your feet, ankles, hands or abdomen Feeling tired with normal activity or experiencing dizziness or fainting Difficulty following your treatment plan, or difficulty taking medications CALL 911 OR GO TO THE EMERGENCY DEPARTMENT if you experience any of the following: Severe abdominal pain or nausea/vomiting Severe chest pain, or chest pain that radiates (moves) to your jaw or arm Sudden, severe shortness of breath or difficulty breathing Thank you for allowing us to participate in your care. Pending Studies at Discharge: No Stand-Alone Forms: My [facility] [employer], Smoking Cessation Medications and DC Order Prescriptions: Continued lubiprostone [Amitiza] 8 mcg capsule 8 mcg PO BID Qty: 60 2RF metoprolol succinate 25 mg tablet extended release 24 hr 25 mg PO TID Qty: 270 3RF albuterol sulfate 2.5 mg /3 mL (0.083 %) solution for nebulization 2.5 mg inhalation .COMPLEX PRN (Reason: sob) Patient Comments: 2.5 mg inhalation Every 4 to 6 hours PRN; Rx Instructions: 2.5 mg inhalation Every 4 to 6 hours PRN; lorazepam 1 mg tablet 1 mg PO BID levothyroxine 25 mcg tablet See Rx Instructions PO .COMPLEX Rx Instructions: PO Takes 1.5 tabs daily; clonidine HCl 0.1 mg tablet 0.1 mg PO BID PRN (Reason: hypertensive emergency) Qty: 30 2RF Rx Instructions: For SBP > 170 mm HG. Up to 2X a day. (DME) Oxygen Home Liters Per Minute See Rx Instructions .ROUTE .MEDSUPPLY Qty: 2 0RF Rx Instructions: 2 L via nasal cannula to be used indefinitely during the day and when sleeping (DME) Portable Oxygen Misc See Rx Instructions .Route Qty: 1 0RF Rx Instructions: 2 L via nasal cannula to be used at rest, with exertion and when sleeping budesonide-formoterol 160-4.5 mcg/actuation HFA aerosol inhaler 2 puff inhalation BID Qty: 10.2 2RF Spiriva Respimat 2.5 mcg/actuation mist 2 inh inhalation QAM Qty: 3 1RF albuterol sulfate 90 mcg/actuation HFA aerosol inhaler 2 puff inhalation Q6H PRN (Reason: shortness of breath or wheezing) (DME) Portable Oxygen Misc See Rx Instructions .Route Qty: 1 0RF Rx Instructions: 2 L via nasal cannula. Portable oxygen concentrator test for portability diphenhydramine-acetaminophen 25-500 mg Tablet 1 tab PO HS melatonin 10 mg Tablet 10 mg PO HS PRN (Reason: Sleep) warfarin 3 mg Tablet 0 mg PO DAILY omeprazole 20 mg capsule,delayed release(DR/EC) 20 mg PO DAILY Qty: 30 11RF Discharge Orders: Discharge Order (Routine); Ordered 06/25/23 Ordered By: Becky Obrien/Other Patient Handouts: RSV (Respiratory Syncytial Virus) Admission Data Admit Date/Time: 06/17/23 09:05 Attending Provider: Toi Biswas Admit Provider: Carlo Love Primary Care Provider: Nat Shankar Other Providers: [facility]; [place],[facility], [place]; [facility]; Thierry Sumner Supervising Physician Co-Signing Physician Notes I personally examined the patient and verified all pat points of history and exam, discussed case, and agree with decision making with Dr Reddy feels OK to go home instead of rehab. Vitals noted, in general she is awake and alert pleasant no distress. HEENT normocephalic atraumatic mucous membranes moist. Breathing unlabored no accessory muscle use good effort. Skin shows no rashes no pallor or icterus. Neuro without focal deficits. RSV/COPDimproving. stable for home Anticoagulated otherwise as above Resident Activity Tracking Resident Involvement: Resident Care Provided Care Provided: Adult Hospital Medicine
[2023-06-25] MEDS: PANTOprazole 40 MG in SYRINGE 0 ML IV SCH (11:57)
--- NOTE | 2023-06-25 12:23 | Billing Data ---
Date of Service June 25, 2023 Coding Level of Care Code 54345 IN/OBS DISCH 30 MIN/LESS
== END 2023-06-25 13:57 | disposition home health service (06) | DRG 189 ==
LOC: ED 06:33 → 2S 09:05 → SUATTDRO 09:05 → 2S 10:40

== ENCOUNTER 2024-06-19 04:38 | Inpatient (IN) ==
--- OUTSIDE RECORDS SUMMARY | 2024-06-19 04:44 | External Medical Summary | Continuity of Care Document ---
Author Name Unknown Organization [facility] [address] [facility] [address] [id number] Care Team Providers Care Sand Mixer Name Role Phone Nat Shankar Primary Care Physician [phone] Encounter [facility] [id number] Date(s): 06/03/24 - 06/03/24 [facility] [address] [facility] 2 [address] [id number] Encounter Diagnosis Actinic keratoses(Discharge Diagnosis) - 06/03/24 Hyperkeratosis(Discharge Diagnosis) - 06/03/24 Discharge Disposition: Home or Self Care Attending Physician: MD Rafiq, Leila Sepulveda Allergies, Adverse Reactions, Alerts Substance Criticality Severity Reaction Reaction Severity Status codeine nausea Active Polysporin Rash Active raNITIdine nausea Active Neosporin Rash Active Levaquin Nausea Active Latex break out in rash Ac tive IVP dye nauseated Active Assessment and Plan Extracted from: Title:Dermatology Office Visit Note Author:Kris peck MD, Leila Sepulveda Date:06/03/24 1.Actinic keratoses x4. Lesions treated with liquid nitrogen. Patient aware of possibility of infection, hypo or hyperpigmentation or scarring and did elect to proceed. They should inform me of any problems or recurrences post treatment. Care sheet given. 2.Hyperkeratosis Have recommended Vaselinetwice daily Immunizations Given and Recorded Vaccine Date Status Refusal Reason SARS-CoV-2 (COVID-19) mRNA BNT-162b2 vax 09/02/20 Recorded SARS-CoV-2 (COVID-19) mRNA BNT-162b2 vax 08/05/20 Recorded human papillomavirus vaccine 1 10/24/09 Recorded 1Result Comment: [06/25/2012 Uncharted] Wrong patient Medications albuterol CFC free 90 mcg/inh MDI Start: 12/20/22 2:24:00 PM EDT, See Instructions, Disp# 6 kit, Refills: 3, INHALE 4 PUFFS BY MOUTH EVERY 4 HOURS NEEDED FOR WHEEZING, Pharmacy: [facility] Start Date: 12/20/22 Status: Ordered amitriptyline 10 mg oral tablet Start: 04/23/24 10:09:00 AM EDT, 1 tab, PO, qhs, Disp# 30 tab, Refills: 3, Pharmacy: [facility] Start Date: 04/23/24 Stop Date: 08/21/24 Status: Ordered Eliquis 5 mg oral tablet Start: 06/02/24 11:39:00 AM EST, 1 tab, PO, bid, Disp# 60 tab, Refills: 3, Pharmacy: [facility] Start Date: 06/02/24 Stop Date: 09/30/24 Status: Ordered enoxaparin 60 mg/0.6 mL injectable solution Start: 05/13/24 7:44:00 AM EST, See Instructions, Disp# 15 each, Refills: 1, Inject 60 mg under theskin every 12 hours as directed by [facility]., Note to Pharmacy: Please contact [facility] with any questions [phone]., Pharmacy: [facility] Start Date: 05/13/24 Status: Ordered levothyroxine 25 mcg (0.025 mg) oral tablet Start: 08/12/23 4:16:00 PM EST, 135 each Start Date: 08/12/23 Status: Ordered LORazepam 1 mg oral tablet Start: 04/01/24 1:26:00 PM EDT, 1 tab, PO, tid, Disp# 270 tab, Refills: 0, prn, Pharmacy: [facility] Start Date: 04/01/24 Stop Date: 06/30/24 Status: Ordered metoprolol succinate 25 mg oral tablet, extended release Start: 08/12/23 4:16:00 PM EST, 1 tab, PO, tid Start Date: 08/12/23 Status: Ordered NexIUM 40 mg oral delayed release capsule Start: 07/22/23 1:16:00 PM EST, 1 cap, PO, Daily, Disp# 90 cap, Refills: 3, Pharmacy: [facility] Start Date: 07/22/23 Stop Date: 07/16/24 Status: Ordered nystatin 100,000 units/g topical ointment Start: 04/23/24 10:28:00 AM EDT, 1 appl, topical, tid, Disp# 30 g, Refills: 0, Pharmacy: [facility] Start Date: 04/23/24 Status: Ordered Spiriva Respimat 10 ACT 2.5 mcg/inh inhalation aerosol Start: 08/08/21 11:44:00 AM EST, 2 inh, inhaled, Daily, Disp# 3 each, Refills: 3, Pharmacy: [facility] Start Date: 08/08/21 Status: Ordered Symbicort 160 mcg-4.5 mcg/inh inhalation aerosol Start: 10/23/23 12:08:00 PM EDT, 2 puff, inhaled, bid, Disp# 4 each, Refills: 3, Pharmacy: [facility] Start Date: 10/23/23 Status: Ordered warfarin 1 mg oral tablet Start: 11/06/23 2:37:00 PM EDT, See Instructions, Disp# 30 tab, Refills: 0, Per coag clinic. Pt takes 26mg weekly, Pharmacy: [facility] Start Date: 11/06/23 Status: Ordered Mental Status 06/03/24 Barriers to Learning one year None evide nt Mandatory Health Literacy Documentation Yes Communication Barrier Present No Health Literacy Communication Barriers N ever Primary Language Faroese Problem List Condition Confirmation Course Effective Dates Status H ealth Status Informant Actinic keratoses Confirmed Active COPD exacerbation Confirmed Active Alopecia Confirmed Active Anxiety Confirmed 03/09/13 Active Xerosis cutis Confirmed Active Multiple nevi Confirmed Active Chronic constipation Confirmed Active Chronic hypoxemic respiratory failure 1 Confirmed Active COPD Confirmed Active Cyst near tailbone Confirmed Active On home oxygen therapy Confirmed Active Sacral mass Confirmed Active SOB (shortness of breath) Confirmed Active Dysuria Confirmed Active Dermatitis Confirmed Active Edema Confirmed Active Factor V Leiden Confirmed Active Fall at home Confirmed Active GERD with esophagitis Confirmed Active History of melanoma Confirmed Active Left hip pain Confirmed Active Hypothyroidism Confirmed Active Sacroiliitis Confirmed Active Wound of right leg Confirmed Active Biceps tendon tear Confirmed Active Hyperkeratosis Confirmed Active Milia Confirmed Active Stuffy nose Confirmed Active Cigarette nicotine dependence without complication Confirmed Active Night sweats Confirmed Active Coccydynia Confirmed Active Palpitations Confirmed Active Peripheral vascular disease Confirmed Active Activated protein C resistance Confirmed Active Rosacea Confirmed Active Sacral pain Confirmed Active Sacral back pain Confirmed Active Sebaceous cyst Confirmed Active Seborrheic keratosis Confirmed Active Senile hyperkeratosis Confirmed Active Right shoulder pain Confirmed Active Sinus tachycardia Confirmed Active Sleep disorder Confirmed Active Swallowing problem Confirmed Active Tachycardia Confirmed Active Tobacco abuse Confirmed Active Tremor Confirmed Active Unintended weight loss Confirmed Active Common wart Confirmed Active Ambulatory dysfunction Confirmed Active 1See Outside Note 02/01/22 01/25/22- [facility] Maurizio Serrano MD Diagnosis Diagnosis Type Effective Dates Health Status Clinical Service Informant Actinic keratoses Discharge Diagnosis 06/03/24 Hyperkeratosis Discharge Diagnosis 06/03/24 Procedures Procedure Date Related Diagnosis Body Site [...] The lung nodules have not changed since 2011 and are considered stable at this time [...] evidence of malignancy. 1 year screening recommended. [id number] normal Social History Social History Type Response Tobacco Current every day sm oker, Cigarettes 1 Smoking Status Never smoked cigaret leigh Sex Female Sex Representation Female (finding) 11 ppd for approx 45 years Dermatology Outpatient Note * MD Rafiq, Leila Sepulveda: PERFORM Event Display: Dermatology Outpt Note Authored Date: [id number] Chief Complaint LV 04/02/24 for AK and Sk. Patient c/o areas on the right ear, area on right lower leg, and left side of nose. Patient states hx of skin ca. History of Present Illness Patient follows up for few spots. She has noticed a couple scaly spots on the nose and the right ear as well as scalyrash the area on the right vanegas. She has tried some of CeraVe on her right shinwithout success. Physical Exam Exam of right lower legears face nose today. She has 2 very light AK's on the right lateral helix and 2 very light AK's on the left nose each less than3 mm. She also has somehyperkeratosison the right vanegas. Assessment/Plan 1.Actinic keratoses x4. Lesions treated with liquid nitrogen. Patient aware of possibility of infection, hypoor hyperpigmentation or scarring and did elect to proceed. They should inform me of any problems or recurrences post treatment. Care sheet given. 2.Hyperkeratosis Have recommended Vaselinetwice daily Problem List/Past Medical History Ongoing Actinic keratoses Activated protein C resistance Alopecia Ambulatory dysfunction Anxiety Biceps tendon tear Chronic constipation Chronic hypoxemic respiratory failure Cigarette nicotine dependence without complication Coccydynia Common wart COPD COPD exacerbation Cyst near tailbone Dermatitis Dysuria Edema Factor V Leiden Fall at home GERD with esophagitis History of melanoma Hyperkeratosis Hypothyroidism Left hip pain Milia Multiple nevi Night sweats On home oxygen therapy Palpitations Peripheral vascular disease Right shoulder pain Rosacea Sacral back pain Sacral mass Sacral pain Sacroiliitis Sebaceous cyst Seborrheic keratosis Senile hyperkeratosis Sinus tachycardia Sleep disorder SOB (shortness of breath) Stuffy nose Swallowing problem Tachycardia Tobacco abuse Tremor Unintended weight loss Wound of right leg Xerosis cutis Resolved Actinic keratitis Acute sinus infection Atypical pneumonia Bilateral shoulder pain Bronchitis Callus Candidal esophagitis Cataract Chronic sinusitis Cough Diarrhea DVT Epistaxis Fatigue L1 vertebral fracture Laceration Left leg swelling Leg muscle spasm Leg numbness Leg ulcer Lentigo LIPOMA Lymphadenopathy Melanocytic nevus of trunk Muscle spasm Muscular deconditioning Nausea Nausea and vomiting Neck pain Open wound Oral thrush Pharyngeal mass PND (post-nasal drip) Pyoderma gangrenosa Rash Rectal hemorrhage Rectal incontinence Right foot pain Right upper quadrant pain S/P thyroid surgery Seeing double Sinusitis Skin lesion Skin ulcer Solitary sacroiliitis (disorder) Solitary sacroiliitis (disorder) Stasis dermatitis Stress Tennis elbow Thyroid disorder Thyroid nodule Tobacco abuse counseling Tongue discoloration Varicose 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 Venous ulcer Viral gastroenteritis Vomiting Weight disorder Yeast vaginitis Procedure/Surgical History Endoscopy| Service Date: 3Cholecystectomy| Service Date: holecystectomy| Service Date: olonoscopy| Service Date: 10/25/2020Upper GI endoscopy| Service Date: 10/25/2020olonoscopy| Service Date: 10/25/2020Nuclear medicine hepatobiliary scan| Service Date: 08/16/2020US EXAM ABDOM COMPLETE| Service Date: 07/12/2020Mammogram| Service Date: 05/03/2020Chest X-ray| Service Date: 08/25/2019Barium swallow| Service Date: 06/19/2019Ultrasound ofsoft tissue of neck| Service Date: 06/19/2019Other - Orthopedic Right Shoulder| Service Date: Mammogram| Service Date: 04/28/2019CT of lungs| Service Date: 09/12/2018Cataract extraction| Service Date: 11/27/2017Mammogram| Service Date: 11/13/2017CT of lung screening| Service Date: 09/02/2017Lung Nodule Program| Service Date: 09/02/2017Biopsy of breast| Service Date: 05/14/2017Mammogram| Service Date: 05/02/2017Upper GI endoscopy| Service Date: 12/12/2016Punch biopsy of skin| Service Date: 05/01/2016Mammogram| Service Date: 04/20/2016Venous Doppler| Service Date: 01/03/2016peripheral arterial testing| Service Date: 12/07/2015Mammogram| Service Date: 04/19/2015Colonoscopy| Service Date: 01/25/2014Punch biopsy of skin| Service Date: 11/11/2012Mammogram| Service Date: 1950thyroid removalmelanoma removed from backUpper gastrointestinal endoscopy Medications albuterol(albuterol CFC free 90 mcg/inh MDI), See Instructions, 3 refills amitriptyline(amitriptyline 10 mg oral tablet), 10 mg= 1 tab, PO, qhs, 3 refills apixaban(Eliquis 5 mg oral tablet), 5 mg= 1 tab, PO, bid, 3 refills budesonide-formoterol(Symbicort 160 mcg-4.5 mcg/inh inhalation aerosol), 2 puff, inhaled, bid, 3 refills enoxaparin(enoxaparin 60 mg/0.6 mL injectable solution), See Instructions, 1 refills esomeprazole(NexIUM 40 mg oral delayed release capsule), 40 mg= 1 cap, PO, Daily, 3 refills levothyroxine(levothyroxine 25 mcg (0.025 mg) oral tablet) LORazepam(LORazepam 1 mg oral tablet), 1 mg= 1 tab, PO, tid metoprolol(metoprolol succinate 25 mg oral tablet, extended release), 25 mg= 1 tab, PO, tid nystatin topical(nystatin 100,000 units/g topical ointment), 1 appl, topical, tid tiotropium(Spiriva Respimat 10 ACT 2.5 mcg/inh inhalation aerosol), 2 inh, inhaled, Daily, 3 refills warfarin(warfarin 1 mg oral tablet), See Instructions Allergies IVP dyenauseated Latexbreak out in rash LevaquinNausea NeosporinRash PolysporinRash codeinenausea raNITIdinenausea Social History Smoking Status Never smoked cigarettes Tobacco - High Risk Use:Current every day smoker Type:Cigarettes - Comments: 1 ppd for approx 45 years Family History Breast cancer: Mother and Sister. Emphysema of lung: Father. Hypertension..: Mother. Health Status Family Member(s) Electronic Signature on File Electronically Reviewed/Signed by: Leila Conroy MD Author Signature Dt/Tm:06/03/2024 01:14 PM Department of Dermatology [facility] Patient Care team information Care Team Personnel Name: JENNIFER Damon Tara Position: Nurse Pract - Family Med Member Role: Lifetime Relationship Address: [address] [place] [address] [place] Name: DO Reddy Amanda Position: Resident Member Role: Lifetime Relationship Address: [address] [address] [place] Name: DO Shankar Kristen M Position: Physician - Family Med Member Role: Primary Care Provider Address: [address] [address] [place] Name: Jennie Owen Todd Position: Pharmacist Schedule II Member Role: Pharmacy - Lifetime Address: [address] [place] [address] [place] Name: Jennie Singletary Michele C Position: Pharmacist Schedule II Member Role: Pharmacy - Lifetime Address: [facility] [address] [place] [address] [place] Name: Jennie eMi Francis Position: Pharmacist Schedule II Member Role: Pharmacy - Lifetime Address: [facility] [address] [place] [address] [place] [facility] Position: Pharmacist Schedule II Member Role: Pharmacy - Lifetime Address: [facility] [address] [place] [address] [place] Name: WALESKA Conti Lynn Position: Physician Specialty Foods Cook Exempt - Vasc Surg Member Role: Lifetime Relationship Address: [address] [facility] [address] [place] [address] [place] Name: JENNIFER Cortes Katy Marie Position: Nurse Pract - Family Med Member Role: Lifetime Relationship Address: [address] [address] [place] Name: KRISTEL Peralta Christina L Position: Physician - Podiatry Member Role: Lifetime Relationship Address: [address] [place] [address] [place] Care Team Related Persons Name: ORACIO SIERRA"
--- OUTSIDE RECORDS SUMMARY | 2024-06-19 04:44 | External Medical Summary | Continuity of Care Document ---
Author Name Unknown Organization [facility] [address] JAMESON 1 Address [address] [place], [place] [id number] Care Team Providers Care Lawn Mower Mechanic Name Role Phone Nat Shankar Primary Care Physician [phone] [facility] [id number] Date(s): 06/09/24 - 06/09/24 [facility] [address] [facility] JAMESON 1 [facility] [address] [facility] 1 [place], [place] [phone] Encounter Diagnosis terminal operations manager (current) use of anticoagulants(Final) - Discharge Disposition: Home or Self Care Attending Physician: MD Neal Raymond K Referring Physician: MD Neal Raymond K Allergies, Adverse Reactions, Alerts Substance Criticality Severity Reaction Reaction Severity Status codeine nausea Active Polysporin Rash Active raNITIdine nausea Active Neosporin Rash Active Levaquin Nausea Active Latex break out in rash Ac tive IVP dye nauseated Active Immunizations Given and Recorded Vaccine Date Status [...] EVERY 4 HOURS NEEDED FOR WHEEZING, Pharmacy: [facility] Start Date: 12/20/22 Status: Ordered amitriptyline 10 mg oral tablet Start: 04/23/24 10:09:00 AM EDT, 1 tab, PO, qhs, Disp# 30 tab, Refills: 3, Pharmacy: [facility] Start Date: 04/23/24 Stop Date: 08/21/24 Status: Ordered Eliquis 5 mg oral tablet Start: 06/02/24 11:39:00 AM EST, 1 tab, PO, bid, Disp# 60 tab, Refills: 3, Pharmacy: [facility] Start Date: 06/02/24 Stop Date: 09/30/24 Status: Ordered enoxaparin 60 mg/0.6 mL injectable solution Start: 05/13/24 7:44:00 AM EST, See Instructions, Disp# 15 each, Refills: 1, Inject 60 mg under theskin every 12 hours as directed by [facility]., Note to Pharmacy: Please contact [facility] with any questions [phone]., Pharmacy: [facility] Start Date: 05/13/24 Status: Ordered levothyroxine 25 mcg (0.025 mg) oral tablet Start: 08/12/23 4:16:00 PM EST, 135 each Start Date: 08/12/23 Status: Ordered LORazepam 1 mg oral tablet Start: 04/01/24 1:26:00 PM EDT, 1 tab, PO, tid, Disp# 270 tab, Refills: 0, prn, Pharmacy: [facility] Start Date: 04/01/24 Stop Date: 06/30/24 Status: Ordered metoprolol succinate 25 mg oral tablet, extended release Start: 08/12/23 4:16:00 PM EST, 1 tab, PO, tid Start Date: 08/12/23 Status: Ordered NexIUM 40 mg oral delayed release capsule Start: 07/22/23 1:16:00 PM EST, 1 cap, PO, Daily, Disp# 90 cap, Refills: 3, Pharmacy: [facility] Start Date: 07/22/23 Stop Date: 07/16/24 Status: Ordered nystatin 100,000 units/g topical ointment Start: 04/23/24 10:28:00 AM EDT, 1 appl, topical, tid, Disp# 30 g, Refills: 0, Pharmacy: [facility] Start Date: 04/23/24 Status: Ordered Spiriva Respimat 10 ACT 2.5 mcg/inh inhalation aerosol Start: 08/08/21 11:44:00 AM EST, 2 inh, inhaled, Daily, Disp# 3 each, Refills: 3, Pharmacy: [facility] Start Date: 08/08/21 Status: Ordered Symbicort 160 mcg-4.5 mcg/inh inhalation aerosol Start: 10/23/23 12:08:00 PM EDT, 2 puff, inhaled, bid, Disp# 4 each, Refills: 3, Pharmacy: [facility] Start Date: 10/23/23 Status: Ordered Synthroid 25 mcg (0.025 mg) oral tablet Start: 06/11/24 3:14:00 PM EST, See Instructions, Disp# 135 tab, Refills: 3, 1.5 tab PO Daily, Noteto Pharmacy: Please mail to the house, Pharmacy: [facility] Start Date: 06/11/24 Status: Ordered warfarin 1 mg oral tablet Start: 11/06/23 2:37:00 PM EDT, See Instructions, Disp# 30 tab, Refills: 0, Per coag clinic. Pt takes 26mg weekly, [facility]acy: [facility] Start Date: 11/06/23 Status: Ordered Problem List Condition Confirmation Course Effective Dates [...] 02/01/22 01/25/22- [facility] Maurizio Serrano MD Procedures Procedure Date Related Diagnosis Body Site [...] evidence of malignancy. 1 year screening recommended. [id number] normal Results Laboratory List Name Date Prothrombin Time w/ INR (PROTIME WITH IN R) 06/09/24 Request to FAX Report (First Location) ( ACC NO TO BE FAXED) 06/09/24 Most recent to oldest [Reference Range]: 1 Phone No [phone] (06/09/24 12:12 PM) Faxed on: 06/09/24 16:12 (06/09/24 12:12 PM) INR [0.9-1.1] 3.0 2 *HI* (06/09/24 12:12 PM) PT [12.0-14.2 seconds] 30.6 seconds *HI* (06/09/24 12:12 PM) 1Result Comment: Testing Performed By: Dept of Pathology [facility] [place], [address] [place] [address] 2Result Comment: Suggested therapeutic range for low-intensity Coumadin therapy for venous thromboembolism is INR 2.0-3.0 (ex: atrial fibrillation, history of TIA/stroke). For high risk patients, the suggested therapeutic range is INR 2.5-3.5 (ex: mechanical prosthetic valves). Testing Performed By: Dept of Pathology [facility] [place], [address] [place] [address] Social History Social History Type Response Tobacco Current every day sm oker, Cigarettes 1 Smoking Status Never smoked cigaret leigh Sex Female Sex Representation Female (finding) 11 ppd for approx 45 years Patient Care team information Care Team Personnel Name: JENNIFER Damon Tara Position: Nurse Pract - Family Med Member Role: Lifetime Relationship Address: [address] [place] [address] [place] Name: DO eRddy Amanda Position: Resident Member Role: Lifetime Relationship Address: [address] [facility] [address] [place] [address] [place] Name: DO Shankar Kristen M Position: Physician - Family Med Member Role: Primary Care Provider Address: [address] [facility] [address] [place] [address] [place] Name: Jennie Owen Todd Position: Pharmacist Schedule II Member Role: Pharmacy - Lifetime Address: [address] [place] [address] [place] Name: Jennie Singletary Michele C Position: Pharmacist Schedule II Member Role: Pharmacy - Lifetime Address: [facility] [address] [place] [address] [place] Name: Jennie Mei Francis Position: Pharmacist Schedule II Member Role: Pharmacy - Lifetime Address: [facility] [address] [place] [address] [place] Name: Jennie Palmer Paul T Position: Pharmacist Schedule II Member Role: Pharmacy - Lifetime Address: [facility] [address] [place] [address] [place] Name: WALESKA Conti Lynn Position: Physician Head Of Marketing Exempt - Vasc Surg Member Role: Lifetime Relationship Address: [address] [facility] [address] [place] [address] [place] Name: JENNIFER Cortes Katy Marie Position: Nurse Pract - Family Med Member Role: Lifetime Relationship Address: [address] [facility] [address] [place] [address] [place] Name: KRISTEL Peralta Christina L Position: Physician - Podiatry Member Role: Lifetime Relationship Address: [address] [facility] [address] [place] [address] [place] Care Team Related Persons Name: ORACIO SIERRA
--- NOTE | 2024-06-19 04:48 | Emergency Department Note ---
History of Present Illness General Chief complaint: Respiratory Distress Stated complaint: SOB, Respiratory Distress, Fall, Neck/Back Pain Time Seen by Provider: 06/19/24 04:39 History of Present Illness 74-year-old woman with no known cardiac history, PMH hypothyroidism, factor V Leiden deficiency (chronic warfarin anticoagulation) and severe COPD (FEV1 27% predicted) with a physiologic sinus tachycardia response to chronic hypoxia, who presents to the ER for near syncope on the toilet and shortness of breath. Patient sats were in the mid 80s per EMS. She chronically wears 4 L. She has a history of severe COPD. EMS gave a nebulizer and Solu-Medrol and route. Patient was on CPAP and was immediately placed on BiPAP. Patient denies neck pain, chest pain, abdominal pain, numbness, tingling, passing out. Home Medications Medication Instructions Recorded Confirmed Type albuterol sulfate 2.5 mg/3 mL 2.5 mg inhalation .COMPLEX PRN sob 02/19/19 06/19/24 History (0.083 %) solution for nebulization lorazepam 1 mg tablet 1 mg PO BID 02/19/19 06/19/24 History levothyroxine 25 mcg tablet 37.5 mcg PO DAILYBB 09/01/19 06/19/24 History diphenhydramine 25 1 tab PO HS 10/17/20 06/19/24 History mg-acetaminophen 500 mg tablet melatonin 10 mg tablet 10 mg PO HS PRN Sleep 10/17/20 06/19/24 History Oxygen Home #2 L 01/25/22 06/05/24 Rx Portable Oxygen #1 ea 01/25/22 06/05/24 Rx albuterol sulfate 90 mcg/actuation 2 puff inhalation Q6H PRN 09/10/22 06/19/24 History aerosol inhaler shortness of breath or wheezing budesonide-formoterol HFA 160 2 puff inhalation BID #10.2 grams 09/10/22 06/19/24 Rx mcg-4.5 mcg/actuation aerosol inhaler tiotropium bromide 2.5 2 inh inhalation QAM #3 Inhalers 09/10/22 06/19/24 Rx mcg/actuation mist for inhalation (Spiriva Respimat) Portable Oxygen #1 ea 09/12/22 06/05/24 Rx clonidine HCl 0.1 mg tablet 0.1 mg PO BID PRN hypertensive 04/23/23 06/19/24 Rx emergency #30 tabs metoprolol succinate 25 mg 25 mg PO TID #270 tabs 05/27/24 06/19/24 Rx tablet,extended release 24 hr vibegron 75 mg tablet (Gemtesa) 75 mg PO DAILY #30 tabs 06/05/24 06/19/24 Rx esomeprazole magnesium 40 mg 40 mg PO DAILY 06/19/24 06/19/24 History capsule,delayed release lubiprostone 24 mcg capsule 24 mcg PO BID 06/19/24 06/19/24 History warfarin 1 mg tablet 3.5 mg PO DAILY 06/19/24 06/19/24 History Allergies Allergy/AdvReac Type Severity Reaction Status Date / Time adhesive tape Allergy Intermediate Rash Verified 06/19/24 08:45 bacitracin Allergy Mild RASH Verified 06/19/24 08:45 latex Allergy Mild RASH Verified 06/19/24 08:45 neomycin Allergy Mild RASH Verified 06/19/24 08:45 polymyxin B Allergy Mild RASH Verified 06/19/24 08:45 levofloxacin [From Levaquin] AdvReac Severe N/V, dizzy Verified 06/19/24 08:45 Past Med/Surg History Problem List (Updated 06/19/24 @ 08:20 by Mahesh Mandel MD) Acute on chronic hypoxic respiratory failure Influenza A (Acute) CAP (community acquired pneumonia) (Acute) Near syncope (Acute) Head injury (Acute) Acute exacerbation of chronic obstructive airways disease (Acute) Urinary urgency Urinary frequency VILLAVICENCIO (dyspnea on exertion) Edema Syncopal episodes resolved > no further issues per pt Labile hypertension PAD (peripheral artery disease) Dysphagia Infection due to ESBL-producing Escherichia coli Ulcer of left lower extremity with necrosis of muscle Rotator cuff arthropathy of both shoulders Bilateral shoulder pain Trochanteric bursitis of left hip Tremor Hypothyroidism Tobacco abuse Malignant melanoma of back (Acute) Lymphadenopathy (Acute) Factor V deficiency (Acute) Bilateral cellulitis of lower leg (Acute) Anxiety disorder (Acute) Acid reflux (Acute) Abnormal mammogram (Acute) Thyroid disease Cholelithiasis Encounter for pre-operative examination Sensation of fullness in left ear Abrasion of ear canal Chronic rhinitis Dysfunction of right eustachian tube Tobacco abuse counseling Palpitations Sinus tachycardia Dyssynergic defecation Chronic constipation Weight loss Chronic hypoxemic respiratory failure on 02 @ 2 LPM at HS, prn in day COPD exacerbation High frequency hearing loss of both ears Shortness of breath Multiple lung nodules on CT History of nicotine dependence COPD (chronic obstructive pulmonary disease) (Acute) uses res inh approx 3x per day Factor 5 Leiden mutation, heterozygous Medical History Elevated troponin RSV infection Acute respiratory failure with hypoxia and hypercarbia COPD exacerbation Nausea and vomiting after administration of anesthetic agent Tremor ESBL (extended spectrum beta-lactamase) producing bacteria infection IBS (irritable bowel syndrome) Anxiety On home oxygen therapy Hx of blood clots Bronchitis Chronic rhinitis Chronic sinusitis Laryngopharyngeal reflux Nontoxic multinodular goiter Pyoderma Sleep disorder History of hypothyroidism History of gastroesophageal reflux (GERD) Surgical History History of tooth extraction History of cataract surgery History of cholecystectomy Hx of colonoscopy H/O melanoma excision History of foot surgery History of breast biopsy History of thyroid surgery Family History Unknown Hypertension Diabetes Mother Cancer Breast cancer Sister Cancer Breast cancer Factor V Leiden Other Family history of bleeding disorder No family history of adverse response to anesthesia Denies family history of Heart disease Stroke Asthma Social History Smoking Status: Former smoker Tobacco Type: Cigarettes Cigarettes Per Day: 11-12 cigs per day; Second Hand Exposure: No; Do You Dip or Chew Tobacco: No; Hx Alcohol Use: No Hx Substance Use: No Preferred Language: French Communication Ability: Effective Occupational Therapist Assistants Required: No Beliefs That Will Affect Care: None marital status: Current Living Situation: Spouse current occupational status: retired current occupation: Retired from [employer] How many Children do You have: 1 Feels Safe at Home: Yes Assistive Devices: Walker Review of Systems A total of 10 systems reviewed and were otherwise negative Physical Exam Vital Signs Vital Signs - 24 hr 06/19/24 04:44 06/19/24 04:44 06/19/24 04:44 Temperature 36.5 C Temperature Source Oral Pulse Rate 99 H 100 H Pulse Rate [Finger] Pulse Rate from SpO2 Sensor Pulse Rhythm Regular Pulse Strength Normal Respiratory Rate 29 H Respiratory Effort / Characteristics Accessory Muscle Use Labored Short of Breath Spontaneous Short of Breath Respiratory Depth Deep Deep Respiratory Pattern Regular Regular Blood Pressure 93/62 L Blood Pressure [Right Arm] Blood Pressure Mean 72 Blood Pressure Mean [Right Arm] Blood Pressure Position Lying Blood Pressure Position [Right Arm] Pulse Oximetry 99 Oxygen Delivery Method BiPAP BiPAP Oxygen Flow Rate Fraction of Inspired Oxygen Sepsis Recent Fever Within 48 Hours No Sepsis New/Unexplained Change in Mental Status N/A Sepsis Action Taken by Nursing Previously Notified 06/19/24 04:44 06/19/24 04:44 06/19/24 04:45 Temperature Temperature Source Pulse Rate 100 H 100 H Pulse Rate [Finger] Pulse Rate from SpO2 Sensor 100 H Pulse Rhythm Regular Pulse Strength Respiratory Rate 29 H 30 H Respiratory Effort / Characteristics Respiratory Depth Respiratory Pattern Blood Pressure 93/62 L Blood Pressure [Right Arm] Blood Pressure Mean 72 Blood Pressure Mean [Right Arm] Blood Pressure Position Blood Pressure Position [Right Arm] Pulse Oximetry 98 99 Oxygen Delivery Method BiPAP BiPAP BiPAP Oxygen Flow Rate Fraction of Inspired Oxygen Sepsis Recent Fever Within 48 Hours Sepsis New/Unexplained Change in Mental Status Sepsis Action Taken by Nursing 06/19/24 05:00 06/19/24 05:12 06/19/24 05:16 Temperature Temperature Source Pulse Rate 100 H 97 H Pulse Rate [Finger] 96 H Pulse Rate from SpO2 Sensor Pulse Rhythm Pulse Strength Respiratory Rate 27 H 31 H 28 H Respiratory Effort / Characteristics Spontaneous Non-Labored Spontaneous Respiratory Depth Normal Respiratory Pattern Regular Blood Pressure 82/49 L Blood Pressure [Right Arm] 109/53 L Blood Pressure Mean 64 Blood Pressure Mean [Right Arm] 71 Blood Pressure Position Blood Pressure Position [Right Arm] Lying Pulse Oximetry 97 99 98 Oxygen Delivery Method Nasal Cannula Nasal Cannula Oxygen Flow Rate 4 4 Fraction of Inspired Oxygen 50 Sepsis Recent Fever Within 48 Hours Sepsis New/Unexplained Change in Mental Status Sepsis Action Taken by Nursing 06/19/24 05:30 06/19/24 05:45 06/19/24 06:00 Temperature Temperature Source Pulse Rate 91 H 91 H 88 Pulse Rate [Finger] Pulse Rate from SpO2 Sensor 91 H Pulse Rhythm Pulse Strength Respiratory Rate 25 H 24 25 H Respiratory Effort / Characteristics Respiratory Depth Respiratory Pattern Blood Pressure 93/49 L 84/51 L 92/51 L Blood Pressure [Right Arm] Blood Pressure Mean 62 62 62 Blood Pressure Mean [Right Arm] Blood Pressure Position Blood Pressure Position [Right Arm] Pulse Oximetry 98 100 100 Oxygen Delivery Method Nasal Cannula Oxygen Flow Rate 4 Fraction of Inspired Oxygen Sepsis Recent Fever Within 48 Hours Sepsis New/Unexplained Change in Mental Status Sepsis Action Taken by Nursing 06/19/24 06:20 06/19/24 06:44 06/19/24 06:45 Temperature Temperature Source Pulse Rate 88 84 Pulse Rate [Finger] Pulse Rate from SpO2 Sensor 84 Pulse Rhythm Pulse Strength Respiratory Rate 22 28 H Respiratory Effort / Characteristics Respiratory Depth Respiratory Pattern Blood Pressure 85/45 L Blood Pressure [Right Arm] 98/48 L Blood Pressure Mean 48 Blood Pressure Mean [Right Arm] 64 Blood Pressure Position Blood Pressure Position [Right Arm] Pulse Oximetry 98 99 Oxygen Delivery Method Nasal Cannula Oxygen Flow Rate 4 Fraction of Inspired Oxygen Sepsis Recent Fever Within 48 Hours Sepsis New/Unexplained Change in Mental Status Sepsis Action Taken by Nursing 06/19/24 06:45 06/19/24 06:45 06/19/24 06:45 Temperature Temperature Source Pulse Rate Pulse Rate [Finger] Pulse Rate from SpO2 Sensor Pulse Rhythm Pulse Strength Respiratory Rate Respiratory Effort / Characteristics Respiratory Depth Respiratory Pattern Blood Pressure 95/48 L 95/48 L 95/48 L Blood Pressure [Right Arm] Blood Pressure Mean 58 58 58 Blood Pressure Mean [Right Arm] Blood Pressure Position Blood Pressure Position [Right Arm] Pulse Oximetry Oxygen Delivery Method Oxygen Flow Rate Fraction of Inspired Oxygen Sepsis Recent Fever Within 48 Hours Sepsis New/Unexplained Change in Mental Status Sepsis Action Taken by Nursing 06/19/24 06:45 06/19/24 06:54 06/19/24 07:00 Temperature Temperature Source Pulse Rate 83 Pulse Rate [Finger] Pulse Rate from SpO2 Sensor 83 Pulse Rhythm Pulse Strength Respiratory Rate 24 Respiratory Effort / Characteristics Respiratory Depth Respiratory Pattern Blood Pressure 95/48 L 91/50 L Blood Pressure [Right Arm] Blood Pressure Mean 58 64 Blood Pressure Mean [Right Arm] Blood Pressure Position Blood Pressure Position [Right Arm] Pulse Oximetry 100 Oxygen Delivery Method Oxygen Flow Rate Fraction of Inspired Oxygen Sepsis Recent Fever Within 48 Hours Sepsis New/Unexplained Change in Mental Status Sepsis Action Taken by Nursing 06/19/24 07:00 06/19/24 07:09 06/19/24 07:15 Temperature Temperature Source Pulse Rate 82 Pulse Rate [Finger] Pulse Rate from SpO2 Sensor 83 Pulse Rhythm Pulse Strength Respiratory Rate 21 Respiratory Effort / Characteristics Respiratory Depth Respiratory Pattern Blood Pressure 91/50 L 94/51 L Blood Pressure [Right Arm] Blood Pressure Mean 64 59 Blood Pressure Mean [Right Arm] Blood Pressure Position Blood Pressure Position [Right Arm] Pulse Oximetry 100 Oxygen Delivery Method Oxygen Flow Rate Fraction of Inspired Oxygen Sepsis Recent Fever Within 48 Hours Sepsis New/Unexplained Change in Mental Status Sepsis Action Taken by Nursing 06/19/24 07:24 06/19/24 07:30 06/19/24 07:33 Temperature Temperature Source Pulse Rate 82 83 Pulse Rate [Finger] Pulse Rate from SpO2 Sensor 82 83 Pulse Rhythm Pulse Strength Respiratory Rate 25 H 25 H Respiratory Effort / Characteristics Respiratory Depth Respiratory Pattern Blood Pressure 91/45 L Blood Pressure [Right Arm] Blood Pressure Mean 57 Blood Pressure Mean [Right Arm] Blood Pressure Position Blood Pressure Position [Right Arm] Pulse Oximetry 99 99 Oxygen Delivery Method Oxygen Flow Rate Fraction of Inspired Oxygen Sepsis Recent Fever Within 48 Hours Sepsis New/Unexplained Change in Mental Status Sepsis Action Taken by Nursing 06/19/24 07:45 06/19/24 07:45 06/19/24 08:00 Temperature Temperature Source Pulse Rate 84 Pulse Rate [Finger] Pulse Rate from SpO2 Sensor 84 Pulse Rhythm Pulse Strength Respiratory Rate 18 Respiratory Effort / Characteristics Respiratory Depth Respiratory Pattern Blood Pressure 97/53 L 95/49 L Blood Pressure [Right Arm] Blood Pressure Mean 66 57 Blood Pressure Mean [Right Arm] Blood Pressure Position Blood Pressure Position [Right Arm] Pulse Oximetry 98 Oxygen Delivery Method Oxygen Flow Rate Fraction of Inspired Oxygen Sepsis Recent Fever Within 48 Hours Sepsis New/Unexplained Change in Mental Status Sepsis Action Taken by Nursing 06/19/24 08:00 06/19/24 08:00 06/19/24 08:00 Temperature Temperature Source Pulse Rate Pulse Rate [Finger] Pulse Rate from SpO2 Sensor Pulse Rhythm Pulse Strength Respiratory Rate Respiratory Effort / Characteristics Respiratory Depth Respiratory Pattern Blood Pressure 95/49 L 95/49 L 95/49 L Blood Pressure [Right Arm] Blood Pressure Mean 57 57 57 Blood Pressure Mean [Right Arm] Blood Pressure Position Blood Pressure Position [Right Arm] Pulse Oximetry Oxygen Delivery Method Oxygen Flow Rate Fraction of Inspired Oxygen Sepsis Recent Fever Within 48 Hours Sepsis New/Unexplained Change in Mental Status Sepsis Action Taken by Nursing 06/19/24 08:00 Temperature Temperature Source Pulse Rate 85 Pulse Rate [Finger] Pulse Rate from SpO2 Sensor 86 Pulse Rhythm Pulse Strength Respiratory Rate 29 H Respiratory Effort / Characteristics Respiratory Depth Respiratory Pattern Blood Pressure Blood Pressure [Right Arm] Blood Pressure Mean Blood Pressure Mean [Right Arm] Blood Pressure Position Blood Pressure Position [Right Arm] Pulse Oximetry 96 Oxygen Delivery Method Oxygen Flow Rate Fraction of Inspired Oxygen Sepsis Recent Fever Within 48 Hours Sepsis New/Unexplained Change in Mental Status Sepsis Action Taken by Nursing VITALS: Vitals are noted on the nurse's note and reviewed by myself. Vital signs reviewed. GENERAL: Elderly female on BiPAP, in no acute distress, nondiaphoretic, well- developed well-nourished. SKIN: The skin was without rashes, erythema, edema, or bruising. There is no tenting of the skin. Capillary reflex less than 2 seconds. HEAD: Normocephalic atraumatic. EARS: External auditory canals clear EYES: Pupils equal round and reactive to light and accommodation. Conjunctivae without injection, sclerae without icterus. Extraocular movements intact. NOSE: Patent, no discharge. MOUTH: Mucous membranes moist. Pharynx without erythema or exudate. Uvula midline. Airway patent. Tongue does not deviate. NECK: Supple without nuchal rigidity. No lymphadenopathy. No thyromegaly. Cervical spine is nontender. No JVD. HEART: Regular rate and rhythm LUNGS: Diffuse inspiratory and end expiratory wheezes. No retractions or accessory muscle use. ABDOMEN: Positive bowel sounds x 4. Normal tympanic percussion. Soft, nontender, without masses or organomegaly. Vega sign negative. No guarding or rebound tenderness. No CVA tenderness MUSCULOSKELETAL: No muscle atrophy, erythema, or edema noted. NEURO: Patient was alert and oriented to person place and time. Normal sensation to light and sharp touch. No focal neurological deficits. Course Administered Medications Acetaminophen (Acetaminophen 500 Mg Tab) 500 mg PO [facility] Stop: 07/19/24 20:59 Last Admin: 06/19/24 20:36 Dose: 500 mg Documented By: ABDIEL Albuterol (Albut/Ipratrop 3mg/0.5mg Neb 3 Ml Vial) 3 ml NEB QIDR [facility]; Protocol Stop: 07/19/24 10:59 Last Admin: 06/19/24 19:38 Dose: 3 ml Documented By: Admin: 06/19/24 15:15 Dose: 3 ml Documented By: Admin: 06/19/24 10:48 Dose: 3 ml Documented By: DUKE Diphenhydramine HCl (Diphenhydramine Capsule 25 Mg Cap) 25 mg PO [facility] Stop: 07/19/24 20:59 Last Admin: 06/19/24 20:36 Dose: 25 mg Documented By: ABDIEL Methylprednisolone 40 mg/ (Syringe) 0.64 mls @ 1.5 mls/min IV Q8H [facility] Stop: 07/19/24 11:14 Last Admin: 06/19/24 20:43 Dose: 1.5 mls/min Documented By: Admin: 06/19/24 12:06 Dose: 1.5 mls/min Documented By: IZABEL Levothyroxine Sodium (Levothyroxine Sodium 25 Mcg Tablet) 37.5 mcg PO DAILYBB [facility] Stop: 07/19/24 10:33 Last Admin: 06/19/24 12:06 Dose: 37.5 mcg Documented By: IZABEL Lorazepam (Lorazepam 1 Mg Tab) 1 mg PO BID [facility] Stop: 07/19/24 10:33 Last Admin: 06/19/24 20:36 Dose: 1 mg Documented By: Admin: 06/19/24 12:00 Dose: 1 mg Documented By: IZABEL Melatonin (Melatonin 3 Mg Tab) 9 mg PO HS PRN PRN Reason: Sleep Last Admin: 06/19/24 20:42 Dose: 9 mg Documented By: ABDIEL Metoprolol Succinate (Metoprolol Succ 25mg Ext Rel Tab) 25 mg PO TID [facility] Stop: 07/19/24 10:33 Last Admin: 06/19/24 20:19 Dose: Not Given Documented By: Admin: 06/19/24 13:28 Dose: Not Given Documented By: Admin: 06/19/24 12:06 Dose: 25 mg Documented By: IZABEL Oseltamivir Phosphate (Oseltamivir Phosphate 6 Mg/Ml Susp) 30 mg PO BID [facility]; Protocol Stop: 06/24/24 20:59 Last Admin: 06/19/24 20:43 Dose: 30 mg Documented By: ABDIEL Vibegron (Vibegron 75 Mg Tab) 75 mg PO DAILY [facility] Stop: 07/19/24 10:33 Last Admin: 06/19/24 12:00 Dose: 75 mg Documented By: IZABEL Warfarin Sodium (Warfarin Sod 3 Mg Tab) 3 mg PO DAILY@1600 [facility] Stop: 07/19/24 15:59 Last Admin: 06/19/24 16:15 Dose: 3 mg Documented By: IZABEL Warfarin Sodium (Warfarin Sod 0.5 Mg Tab) 0.5 mg PO DAILY@1600 [facility] Stop: 07/19/24 15:59 Last Admin: 06/19/24 16:15 Dose: 0.5 mg Documented By: IZABEL Discontinued Medications Albuterol (Albut/Ipratrop 3mg/0.5mg Neb 3 Ml Vial) 3 ml NEB NOW STA; Protocol Stop: 06/19/24 04:50 Last Admin: 06/19/24 05:06 Dose: 3 ml Documented By: EMILY Azithromycin (Azithromycin 250 Mg Tab) 500 mg PO NOW ONE Stop: 06/19/24 05:17 Last Admin: 06/19/24 05:40 Dose: 500 mg Documented By: EMILY Sodium Chloride (Nss) 500 mls @ 999 mls/hr IV .Q31M ONE Stop: 06/19/24 05:34 Last Admin: 06/19/24 05:08 Dose: Not Given Documented By: EMILY Ceftriaxone Sodium (Rocephin) 1,000 mg in 50 mls @ 100 mls/hr IV NOW STA Stop: 06/19/24 05:45 Last Infusion: 06/19/24 06:14 Dose: Infused Documented By: Admin: 06/19/24 05:39 Dose: 100 mls/hr Documented By: EMILY Sodium Chloride (Nss) 500 mls @ 999 mls/hr IV .Q31M ONE Stop: 06/19/24 06:46 Last Infusion: 06/19/24 07:00 Dose: Infused Documented By: Admin: 06/19/24 06:21 Dose: 999 mls/hr Documented By: EMILY Ondansetron HCl (Ondansetron Inj 2 Mg/Ml 2 Ml Vial) 4 mg IV NOW STA Stop: 06/19/24 05:03 Last Admin: 06/19/24 05:06 Dose: Not Given Documented By: EMILY Ondansetron HCl (Ondansetron Inj 2 Mg/Ml 2 Ml Vial) Confirm Administered Dose 4 mg .ROUTE .STK-MED ONE Stop: 06/19/24 05:05 Last Admin: 06/19/24 05:06 Dose: 4 mg Documented By: EMILY Oseltamivir Phosphate (Oseltamivir Phosphate 75 Mg Cap) 75 mg PO NOW STA; Protocol Stop: 06/19/24 05:57 Last Admin: 06/19/24 06:00 Dose: 75 mg Documented By: EMILY Critical Care Time Critical Care Time: Yes Total Critical Care Time: 35 I have personally spent 35 minutes of critical care time in the direct management of this patient. This includes bedside care, interpretation of diagnostic studies, and testing, discussion with consultants, patient, and family members, and other required patient management activities. This 35 minutes is in excess of all separately billable procedures. Medical Decision Making Medical Records Attestation: I reviewed the patient's medical records. Home Medications Current Medication List: was personally reviewed by me Laboratory Data Attestation: I reviewed the patient's lab results. 06/19/24 04:45 06/19/24 04:45 Lab Results 06/19/24 06/19/24 06/19/24 Range/Units 04:45 04:46 05:32 WBC 9.34 (4.8-10.8) K/ul RBC 4.34 (4.20-5.40) M/uL Hgb 13.2 (12.0-16.0) g/dl Hct 39.9 (37.0-47.0) % MCV 91.9 (80.0-100.0) fL MCH 30.4 (25.0-34.0) pg MCHC 33.1 (32.0-36.0) g/dL RDW Std Deviation 46.5 H (36.4-46.3) fL RDW Coeff of Manoj 13.6 (11.5-14.5) % Plt Count 199 (130-400) K/uL MPV 9.9 (9.4-12.4) fL Immature Gran % (Auto) 0.4 % Neut % (Auto) 87.7 % Lymph % (Auto) 6.6 % [place] % (Auto) 4.3 % Eos % (Auto) 0.5 % Baso % (Auto) 0.5 % Neut # (Auto) 8.18 H (1.40-6.50) K/uL Lymph # (Auto) 0.62 L (1.20-3.40) K/uL [place] # (Auto) 0.40 (0.11-0.59) K/uL Eos # (Auto) 0.05 (0.00-0.50) K/uL Baso # (Auto) 0.05 (0.00-0.20) K/uL Immature Gran # (Auto) 0.04 (0.01-0.20) K/uL PT Cancelled INR Cancelled APTT Cancelled PTT Ratio Cancelled VBG pH 7.35 L (7.36-7.41) VBG pCO2 59 H (38-50) mmHg VBG pO2 65 mmHg VBG HCO3 33 mmol/L VBG O2 Saturation 92.9 % VBG Base Excess 5.2 mEq/L Sodium 137 (136-145) mmol/L Potassium 4.0 (3.5-5.1) mmol/L Chloride 100 (98-107) mmol/L Carbon Dioxide 29 (21-32) mmol/L Anion Gap 8 (3-11) BUN 14 (6-23) mg/dl Creatinine 0.86 (0.6-1.2) mg/dl Est Cr Clr Drug Dosing 38.8 ml/min eGFR 70.85 BUN/Creatinine Ratio 16.3 (10-20) Glucose 146 H (70-99(Fasting)) mg/dl Lactate 1.2 (0.4-2.0) mmol/L Calcium 8.8 (8.6-10.3) mg/dl Magnesium 1.7 (1.7-2.4) mg/dl Total Bilirubin 0.7 (0.2-1.0) mg/dl Direct Bilirubin 0.1 (0-0.2) mg/dl AST 20 (13-39) U/L ALT 13 (7-52) U/L Alkaline Phosphatase 49 (34-104) U/L Troponin I High Sens 9.0 (0-14) pg/ml Total Protein 6.6 (6.0-8.3) gm/dl Albumin 4.0 (3.4-5.0) gm/dl Procalcitonin Cancelled Adenovirus (PCR) Not Detected (NotDetected) B. pertussis DNA (PCR) Not Detected (NotDetected) B.parapertussis DNA PCR Not Detected (NotDetected) C. pneumoniae DNA (PCR) Not Detected (NotDetected) Coronavirus OC43 (PCR) Not Detected (NotDetected) Coronavirus HKU1 (PCR) Not Detected (NotDetected) Coronavirus 229E (PCR) Not Detected (NotDetected) SARS-CoV-2 (PCR) Not Detected (NotDetected) Coronavirus NL63 (PCR) Not Detected (NotDetected) Human Metapneumovir PCR Not Detected (NotDetected) Influenza A (H3) PCR DETECTED A (NotDetected) Influenza Type B (PCR) Not Detected (NotDetected) M. pneumoniae (PCR) Not Detected (NotDetected) Parainfluenza 1 (PCR) Not Detected (NotDetected) Parainfluenza 2 (PCR) Not Detected (NotDetected) Parainfluenza 3 (PCR) Not Detected (NotDetected) Parainfluenza 4 (PCR) Not Detected (NotDetected) RSV (PCR) Not Detected (NotDetected) Entero/Rhino (PCR) Not Detected (NotDetected) 06/19/24 06/19/24 Range/Units 06:40 07:05 WBC (4.8-10.8) K/ul RBC (4.20-5.40) M/uL Hgb (12.0-16.0) g/dl Hct (37.0-47.0) % MCV (80.0-100.0) fL MCH (25.0-34.0) pg MCHC (32.0-36.0) g/dL RDW Std Deviation (36.4-46.3) fL RDW Coeff of Manoj (11.5-14.5) % Plt Count (130-400) K/uL MPV (9.4-12.4) fL Immature Gran % (Auto) % Neut % (Auto) % Lymph % (Auto) % [place] % (Auto) % Eos % (Auto) % Baso % (Auto) % Neut # (Auto) (1.40-6.50) K/uL Lymph # (Auto) (1.20-3.40) K/uL [place] # (Auto) (0.11-0.59) K/uL Eos # (Auto) (0.00-0.50) K/uL Baso # (Auto) (0.00-0.20) K/uL Immature Gran # (Auto) (0.01-0.20) K/uL PT 27.3 H INR 2.8 H APTT 31 PTT Ratio 1.2 VBG pH (7.36-7.41) VBG pCO2 (38-50) mmHg VBG pO2 mmHg VBG HCO3 mmol/L VBG O2 Saturation % VBG Base Excess mEq/L Sodium (136-145) mmol/L Potassium (3.5-5.1) mmol/L Chloride (98-107) mmol/L Carbon Dioxide (21-32) mmol/L Anion Gap (3-11) BUN (6-23) mg/dl Creatinine (0.6-1.2) mg/dl Est Cr Clr Drug Dosing ml/min eGFR BUN/Creatinine Ratio (10-20) Glucose (70-99(Fasting)) mg/dl Lactate (0.4-2.0) mmol/L Calcium (8.6-10.3) mg/dl Magnesium (1.7-2.4) mg/dl Total Bilirubin (0.2-1.0) mg/dl Direct Bilirubin (0-0.2) mg/dl AST (13-39) U/L ALT (7-52) U/L Alkaline Phosphatase (34-104) U/L Troponin I High Sens (0-14) pg/ml Total Protein (6.0-8.3) gm/dl Albumin (3.4-5.0) gm/dl Procalcitonin 0.38 Adenovirus (PCR) (NotDetected) B. pertussis DNA (PCR) (NotDetected) B.parapertussis DNA PCR (NotDetected) C. pneumoniae DNA (PCR) (NotDetected) Coronavirus OC43 (PCR) (NotDetected) Coronavirus HKU1 (PCR) (NotDetected) Coronavirus 229E (PCR) (NotDetected) SARS-CoV-2 (PCR) (NotDetected) Coronavirus NL63 (PCR) (NotDetected) Human Metapneumovir PCR (NotDetected) Influenza A (H3) PCR (NotDetected) Influenza Type B (PCR) (NotDetected) M. pneumoniae (PCR) (NotDetected) Parainfluenza 1 (PCR) (NotDetected) Parainfluenza 2 (PCR) (NotDetected) Parainfluenza 3 (PCR) (NotDetected) Parainfluenza 4 (PCR) (NotDetected) RSV (PCR) (NotDetected) Entero/Rhino (PCR) (NotDetected) Imaging Data Attestation: I personally reviewed and interpreted this imaging study as follows: MDM Narrative Prior records/ancillary studies reviewed. Triage Nursing notes reviewed. Additional history obtained from the EMS. The patient's history was concerning for respiratory difficulties. Differential diagnosis: Etiologies such as infections, reactive airway disease, pneumonia, pneumothorax, COPD, CHF, cardiac ischemia, pulmonary embolism, musculoskeletal, gastrointestinal, as well as others were entertained. Physical examination: As above. ER treatment provided: An order was placed for continuous cardiac monitoring. The monitor shows a rate of 60-100 with a sinus rhythm per my interpretation. BiPAP was placed Nebulizer and Zofran were ordered Rocephin and Zithromax were given for possible pneumonia Tamiflu for positive influenza A on [employer] On reassessment the patient felt better. Diagnostic interpretation by me: The electrocardiogram was ordered for SOB. ECG: Poor baseline, normal sinus, normal intervals, no acute ST-T wave changes, rate of 101. Impression sinus tachycardia poor baseline independently interpreted by myself The labs Independently Interpreted by myself revealed no worrisome leukocytosis, VBG was reviewed Blood cultures pending Negative troponin Influenza A on [employer] Imaging studies: Chest x-ray concerning for right lower lobe pneumonia per my independent interpretation Imaging was reviewed and read by radiology Consultation: A consultation was placed with the hospitalist. The case was discussed and diagnostics were reviewed. The patient was evaluated in the ER for further treatment. This appears to be consistent with COPD exacerbation with influenza. Patient was sent down for head and C-spine scans as she did fall. These were reviewed and read by radiology. She did improve with the BiPAP. She will be admitted to the medical service. By the evaluation outlined above emergent etiologies such as CHF, cardiac ischemia, pulmonary embolism, reactive airway disease, pneumothorax, musculoskeletal, as well as others were deemed relatively unlikely. The pt informed about the findings as listed above. All questions were answered and pleased with the treatment. The chart was completed utilizing [employer] Speech voice recognition software. Grammatical errors, random word insertions, pronoun errors, and incomplete sentences are an occassional consequence of this system due to software limitations, ambient noise, and hardware issues. Any formal questions or concerns about the content, text, or information contained within the body of this dictation should be directly addressed to the physician assistant refinery operator for clarification. Impression & Plan Acute exacerbation of chronic obstructive airways disease, Head injury, Near syncope, CAP (community acquired pneumonia), Influenza A Discharge Plan Visit Data Chief Complaint: Respiratory Distress Stated Complaint: SOB, Respiratory Distress, Fall, Neck/Back Pain ED Provider: Rhiannon Scruggs ED Midlevel Provider: Bere Ramesh Discharge Problem: Acute exacerbation of chronic obstructive airways disease, Head injury, Near syncope, CAP (community acquired pneumonia), Influenza A Patient Disposition: Admitted As Inpatient Condition: Fair Discharge Instructions Interventions: ED Discharge Assessment Last Done: 06/19/24 10:11
[2024-06-19 04:56] LABS: Base Excess VBG 5.2 mEq/L; HCO3 VBG 33 mmol/L; Oxygen Saturation VBG 92.9 %; PCO2 VBG 59 mmHg (38-50); PO2 VBG 65 mmHg; pH VBG 7.35 (7.36-7.41)
[2024-06-19 05:02] LABS: Basophils # (auto) 0.05 K/uL (0.00-0.20); Basophils % (auto) 0.5 %; Eosinophils # (auto) 0.05 K/uL (0.00-0.50); Eosinophils % (auto) 0.5 %; Hematocrit (blood only) 39.9 % (37.0-47.0); Hemoglobin 13.2 g/dl (12.0-16.0); Immature Granulocytes # (auto) 0.04 K/uL (0.01-0.20); Immature Granulocytes % (auto) 0.4 %; Lymphocytes # (auto) 0.62 K/uL (1.20-3.40); Lymphocytes % (auto) 6.6 %; Mean Corpuscular Hemoglobin 30.4 pg (25.0-34.0); Mean Corpuscular Hgb Conc 33.1 g/dL (32.0-36.0); Mean Corpuscular Volume 91.9 fL (80.0-100.0); Mean Platelet Volume 9.9 fL (9.4-12.4); Monocytes % (auto) 4.3 %; Neutrophils # (auto) 8.18 K/uL (1.40-6.50); Neutrophils % (auto) 87.7 %; Platelet Count 199 K/uL (130-400); RDW Coefficient of Variation 13.6 % (11.5-14.5); RDW Standard Deviation 46.5 fL (36.4-46.3); Red Blood Count 4.34 M/uL (4.20-5.40); White Blood Count 9.34 K/ul (4.8-10.8)
[2024-06-19] MEDS: ALBUT/IPRATROP 3MG/0.5MG NEB 3 ML VIAL NEB STA (05:06)
[2024-06-19] MEDS: ONDANSETRON INJ 2 MG/ML 2 ML VIAL ONE (05:06)
[2024-06-19] MEDS: ONDANSETRON INJ 2 MG/ML 2 ML VIAL IV STA (05:06)
[2024-06-19] MEDS: SODIUM CHLORIDE 0.9% 500 ML IV ONE ×2 (05:08→06:21)
[2024-06-19 05:20] LABS: BUN Creatinine Ratio 16.3 (10-20); Bilirubin Direct 0.1 mg/dl (0-0.2); Bilirubin,Total 0.7 mg/dl (0.2-1.0); Calcium 8.8 mg/dl (8.6-10.3); Creatinine Clr Calc Pharmacy 38.8 ml/min; Magnesium 1.7 mg/dl (1.7-2.4); Total Protein 6.6 gm/dl (6.0-8.3)
[2024-06-19] MEDS: cefTRIAXone SODIUM 1,000 MG/50 ML BAG IV STA (05:39)
[2024-06-19] MEDS: AZITHROMYCIN 250 MG TAB PO ONE (05:40)
[2024-06-19 05:49] LABS: Adenovirus PCR Not Detected (NotDetected); Bordetella parapertussis PCR Not Detected (NotDetected); Bordetella pertussis PCR Not Detected (NotDetected); Chlamydia pneumoniae PCR Not Detected (NotDetected); Coronavirus 229E PCR Not Detected (NotDetected); Coronavirus CoV-2 (COVID19)PCR Not Detected (NotDetected); Coronavirus HKU1 PCR Not Detected (NotDetected); Coronavirus NL63 PCR Not Detected (NotDetected); Coronavirus OC43PCR Not Detected (NotDetected); Human Metapneumovirus PCR Not Detected (NotDetected); Influenza A (H3) PCR DETECTED (NotDetected); Influenza B PCR Not Detected (NotDetected); Mycoplasma pneumoniae PCR Not Detected (NotDetected); Parainfluenza Virus 1 PCR Not Detected (NotDetected); Parainfluenza Virus 2 PCR Not Detected (NotDetected); Parainfluenza Virus 3 PCR Not Detected (NotDetected); Parainfluenza Virus 4 PCR Not Detected (NotDetected); Respiratory Syncytial VirusPCR Not Detected (NotDetected); Rhinovirus/Enterovirus PCR Not Detected (NotDetected)
[2024-06-19] MEDS: OSELTAMIVIR PHOSPHATE 75 MG CAP PO STA (06:00)
--- NOTE | 2024-06-19 06:05 | CT Scan Report ---
EXAM: CT head/brain wo con CLINICAL HISTORY: Fell and hit head-on DOAC TECHNIQUE: Axial noncontrast CT scan of the brain was performed from the skull base to the high parietal region. One of the following dose reduction techniques were utilized for this exam: Automated exposure control, adjustment of the mA and/or kV according to patient size, and use of iterative reconstruction. COMPARISON: 06/17/2023 FINDINGS: Accentuated bilateral cerebral periventricular white matter hypodensities denoting hypoperfusion. The crandall-white matter differentiation is preserved. Normal CT appearance of the posterior fossa structures namely the cerebellar hemispheres, brain stem, and cerebellar peduncles. No intracerebral or extra axial hematoma. Prominent ventricular system, cortical sulci, and extra-axial CSF spaces. No midline shifts or deformity. No definite calvarial fractures. The osseous structures in the skull base are unremarkable. The scanned paranasal sinuses are unremarkable. IMPRESSION: 1. No intra or extra-axial hematomas or parenchymal territorial hypodense areas suggestive of acute ischemic insult. Early changes of stroke may not be detected on a CT scan. If strong clinical suspicion of stroke then suggest MRI with diffusion-weighted imaging. 2. Microvascular ischemic changes with age matches mild brain involutional changes. Stable. Electronically signed by Galina Christy 06-19-2024 06:04 AM
--- NOTE | 2024-06-19 06:30 | CT Scan Report ---
EXAM: CT cervical spine wo con CLINICAL HISTORY: fell and hit head on DOAC TECHNIQUE: CT scan of the cervical spine was performed without the administration of intravenous contrast. Contiguous axial images were obtained from the skull base to the upper thoracic spine. Coronal and sagittal reformatted images were also reviewed. One of the following dose reduction techniques was utilized for this exam. Automated exposure control, adjustment of the mA and/or kV according to patient size, and use of iterative reconstruction. COMPARISON: Comparison is made with the prior imaging dated 01/02/2022. FINDINGS: Mild retrolisthesis of C3 over C4. Exaggerated cervical lordotic may be due to muscle spasm No fracture line No vertebral wedging or collapse Atlantoaxial osteoarthritic changes Spondylosis of the cervical spine with a small marginal osteophytic lipping of the opposing vertebral endplate, narrowing of C5-6 and C6/7 intervertebral discs with small vacuum within the later Multilevel facet arthropathic changes adding to the neural compromise C3-4, C4-5, C5-6 posterior disc bulges are seen abutting the cord and encroaching the neural exit pathways for better detailed assessment by MRI if indicated IMPRESSION: 1. Mild retrolisthesis of C3 over C4. 2. Exaggerated cervical lordotic may be due to muscle spasm 3. No fracture line 4. No vertebral wedging or collapse 5. Atlantoaxial osteoarthritic changes 6. Spondylosis of the cervical spine 7. C3-4, C4-5, C5-6 posterior disc bulges, MRI is advised. 8. No interval changes. Electronically signed by Galina Christy 06-19-2024 06:29 AM
[2024-06-19 07:37] LABS: INR 2.8 (0.9-1.1); Partial Thromboplastin Ratio 1.2; Partial Thromboplastin Time 31 Seconds (21-31); Prothrombin Time 27.3 Seconds (9.0-12.0)
--- NOTE | 2024-06-19 08:10 | XRay Report ---
EXAM: XR chest 1V portable CLINICAL HISTORY: SEPSIS SOB JMF TECHNIQUE: An X-ray image of the chest is obtained in AP projection. COMPARISON: No prior studies are available for comparison. FINDINGS: Pulmonary Parenchyma: Ill-defined right lower lobe patchy radio-opacity seen Bilateral prominent bronchovascular markings and reticulations seen, more prominent at right lung suspicious for pulmonary congestion versus pneumonic infiltrates, advised for clinical correlation No evidence of pleural effusion or pleural thickening. Heart and Mediastinum: Heart size and shape are normal. No mediastinal widening or masses. No hilar or mediastinal lymphadenopathy. Bony Thorax: Bony thorax appears intact without fractures or deformities. Soft Tissues: Soft tissues overlying the chest wall are unremarkable. IMPRESSION: 1. Ill-defined right lower lobe patchy radio-opacity seen. 2. Bilateral prominent bronchovascular markings and reticulations seen, more prominent at right lung suspicious for pulmonary congestion versus pneumonic infiltrates, advised for clinical correlation. Electronically signed by Galina Christy 06-19-2024 08:09 AM
--- NOTE | 2024-06-19 08:21 | History & Physical Report ---
Date of Service June 19, 2024 Assessment & Plan (1) Influenza A: Plan: Supportive care. Tamiflu (2) Acute on chronic hypoxic respiratory failure: Plan: Supplemental oxygen per nasal cannula to maintain saturation greater than 90%. Wean down to baseline use as tolerated (3) Acute exacerbation of chronic obstructive airways disease: Plan: Parenteral steroid therapy. Scheduled nebulizer treatments. (4) PAD (peripheral artery disease): Plan: Stable. Continue current medical management (5) Hypothyroidism: Plan: Stable. 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 Daily INR Plan Hopeful discharge back to her home within the next day or 2 History of Present Illness Chief Complaint: Shortness of breath Primary Care Provider: Nat Shankar DO 74-year-old female with COPD and chronic respiratory failure on home oxygen. For the past day or 2 she has had malaise and myalgias consistent with a viral illness. This has exacerbated her COPD and she has had more shortness of breath although she has a nonproductive cough. She is positive for influenza type a in the ED. Chest x-ray negative for pneumonia. She has improved since treatment initiated in the ED. No current fever. No hemoptysis. Chest x-ray negative for CHF or pneumonia Allergies Allergy/AdvReac Type Severity Reaction Status Date / Time adhesive tape Allergy Intermediate Rash Verified 06/05/24 10:47 bacitracin Allergy Mild RASH Verified 06/05/24 10:47 latex Allergy Mild RASH Verified 06/05/24 10:47 neomycin Allergy Mild RASH Verified 06/05/24 10:47 polymyxin B Allergy Mild RASH Verified 06/05/24 10:47 levofloxacin [From Levaquin] AdvReac Severe N/V, dizzy Verified 06/05/24 10:47 Home Medications Medication Instructions Recorded Confirmed Type albuterol sulfate 2.5 mg/3 mL 2.5 mg inhalation .COMPLEX PRN sob 02/19/19 06/05/24 History (0.083 %) solution for nebulization lorazepam 1 mg tablet 1 mg PO BID 02/19/19 06/05/24 History levothyroxine 25 mcg tablet See Rx Instructions PO .COMPLEX 09/01/19 06/05/24 History diphenhydramine 25 1 tab PO HS 10/17/20 06/05/24 History mg-acetaminophen 500 mg tablet melatonin 10 mg tablet 10 mg PO HS PRN Sleep 10/17/20 06/05/24 History Oxygen Home #2 L 01/25/22 06/05/24 Rx Portable Oxygen #1 ea 01/25/22 06/05/24 Rx albuterol sulfate 90 mcg/actuation 2 puff inhalation Q6H PRN 09/10/22 06/05/24 History aerosol inhaler shortness of breath or wheezing budesonide-formoterol HFA 160 2 puff inhalation BID #10.2 grams 09/10/22 06/05/24 Rx mcg-4.5 mcg/actuation aerosol inhaler tiotropium bromide 2.5 2 inh inhalation QAM #3 Inhalers 09/10/22 06/05/24 Rx mcg/actuation mist for inhalation (Spiriva Respimat) Portable Oxygen #1 ea 09/12/22 06/05/24 Rx warfarin 3 mg tablet 0 mg PO DAILY 12/17/22 06/05/24 History omeprazole 20 mg capsule,delayed 20 mg PO DAILY #30 caps 12/26/22 06/05/24 Rx release clonidine HCl 0.1 mg tablet 0.1 mg PO BID PRN hypertensive 04/23/23 06/05/24 Rx emergency #30 tabs metoprolol succinate 25 mg 25 mg PO TID #270 tabs 05/27/24 06/05/24 Rx tablet,extended release 24 hr vibegron 75 mg tablet (Gemtesa) 75 mg PO DAILY #30 tabs 06/05/24 06/05/24 Rx Past Med/Surg History Problem List (Updated 06/19/24 @ 08:20 by Mahesh Mandel MD) Acute on chronic hypoxic respiratory failure Influenza A (Acute) CAP (community acquired pneumonia) (Acute) Near syncope (Acute) Head injury (Acute) Acute exacerbation of chronic obstructive airways disease (Acute) Urinary urgency Urinary frequency VILLAVICENCIO (dyspnea on exertion) Edema Syncopal episodes resolved > no further issues per pt Labile hypertension PAD (peripheral artery disease) Dysphagia Infection due to ESBL-producing Escherichia coli Ulcer of left lower extremity with necrosis of muscle Rotator cuff arthropathy of both shoulders Bilateral shoulder pain Trochanteric bursitis of left hip Tremor Hypothyroidism Tobacco abuse Malignant melanoma of back (Acute) Lymphadenopathy (Acute) Factor V deficiency (Acute) Bilateral cellulitis of lower leg (Acute) Anxiety disorder (Acute) Acid reflux (Acute) Abnormal mammogram (Acute) Thyroid disease Cholelithiasis Encounter for pre-operative examination Sensation of fullness in left ear Abrasion of ear canal Chronic rhinitis Dysfunction of right eustachian tube Tobacco abuse counseling Palpitations Sinus tachycardia Dyssynergic defecation Chronic constipation Weight loss Chronic hypoxemic respiratory failure on 02 @ 2 LPM at HS, prn in day COPD exacerbation High frequency hearing loss of both ears Shortness of breath Multiple lung nodules on CT History of nicotine dependence COPD (chronic obstructive pulmonary disease) (Acute) uses res inh approx 3x per day Factor 5 Leiden mutation, heterozygous Medical History Elevated troponin RSV infection Acute respiratory failure with hypoxia and hypercarbia COPD exacerbation Nausea and vomiting after administration of anesthetic agent Tremor ESBL (extended spectrum beta-lactamase) producing bacteria infection IBS (irritable bowel syndrome) Anxiety On home oxygen therapy Hx of blood clots Bronchitis Chronic rhinitis Chronic sinusitis Laryngopharyngeal reflux Nontoxic multinodular goiter Pyoderma Sleep disorder History of hypothyroidism History of gastroesophageal reflux (GERD) Surgical History History of tooth extraction History of cataract surgery History of cholecystectomy Hx of colonoscopy H/O melanoma excision History of foot surgery History of breast biopsy History of thyroid surgery Family History Unknown Hypertension Diabetes Mother Cancer Breast cancer Sister Cancer Breast cancer Factor V Leiden Other Family history of bleeding disorder No family history of adverse response to anesthesia Denies family history of Heart disease Stroke Asthma Social History Smoking Status: Former smoker Tobacco Type: Cigarettes Cigarettes Per Day: 11-12 cigs per day; Second Hand Exposure: Yes; Do You Dip or Chew Tobacco: No; Hx Alcohol Use: Yes Alcohol type: beer Hx Substance Use: No Preferred Language: [place] Islander Communication Ability: Effective Air Conditioning Coil Assembler Required: No Beliefs That Will Affect Care: None marital status: Current Living Situation: Spouse current occupational status: retired current occupation: Retired from [employer] How many Children do You have: 1 Feels Safe at Home: Yes Assistive Devices: None Review of Systems 2 Review of Systems: Constitutionalno fever or chills ENTno blurred vision, no double vision, no epistaxis, no sore throat Respiratorynonproductive cough. Wheezing has improved since treatment initiated in the ED. Shortness of breath is also improved Cardiacno palpitations, no chest pain, no syncope Nadeen nausea, vomiting, diarrhea, melena, hematochezia GUno urinary retention, no urinary incontinence, no dysuria, no hematuria Musculoskeletalno joint pain, no muscle tenderness Skinno bruising, no rashes, no pruritus Neurono isolated weakness, no paresthesia, no weakness Psychno depression, no anxiety Physical Exam 2 Physical Exam: General-alert and oriented x3, no fever. Cachectic appearing HEENT-head atraumatic and normocephalic, pupils equal and reactive to light, extraocular muscles intact Neck-no lymphadenopathy or thyromegaly, trachea midline Chest-diminished breath sounds bilaterally. Faint bilateral end expiratory wheezes. No rhonchi. No inspiratory rales Cardiac-regular rate and rhythm, normal S1 and S2 Abdomen-normal bowel sounds, no hepatosplenomegaly Extremities-no cyanosis, clubbing, or edema Neuro-cranial nerves II through XII intact, motor and sensory function within normal limits, strength symmetrical, no focal deficits Psych-normal affect, normal mood Results & Data Results & Data Vital Signs (Past 12 Hours) Vital Signs Temp Pulse Pulse Resp BP BP Pulse Ox 06/19/24 07:33 83 25 H 99 06/19/24 07:30 91/45 L 06/19/24 07:24 82 25 H 99 06/19/24 07:15 94/51 L 06/19/24 07:09 82 21 100 06/19/24 07:00 91/50 L 06/19/24 07:00 91/50 L 06/19/24 06:54 83 24 100 06/19/24 06:45 95/48 L 06/19/24 06:45 95/48 L 06/19/24 06:45 95/48 L 06/19/24 06:45 95/48 L 06/19/24 06:45 84 28 H 99 06/19/24 06:44 98/48 L 06/19/24 06:20 88 22 85/45 L 98 06/19/24 06:00 88 25 H 92/51 L 100 06/19/24 05:45 91 H 24 84/51 L 100 06/19/24 05:30 91 H 25 H 93/49 L 98 06/19/24 05:16 97 H 28 H 82/49 L 98 06/19/24 05:12 100 H 31 H 99 06/19/24 05:00 96 H 27 H 109/53 L 97 06/19/24 04:45 100 H 30 H 93/62 L 99 06/19/24 04:44 100 H 29 H 98 06/19/24 04:44 06/19/24 04:44 36.5 C 100 H 29 H 93/62 L 99 06/19/24 04:44 06/19/24 04:44 99 H O2 Del Method O2 Flow Rate FiO2 06/19/24 07:33 06/19/24 07:30 06/19/24 07:24 06/19/24 07:15 06/19/24 07:09 06/19/24 07:00 06/19/24 07:00 06/19/24 06:54 06/19/24 06:45 06/19/24 06:45 06/19/24 06:45 06/19/24 06:45 06/19/24 06:45 06/19/24 06:44 06/19/24 06:20 Nasal Cannula 4 06/19/24 06:00 06/19/24 05:45 06/19/24 05:30 Nasal Cannula 4 06/19/24 05:16 Nasal Cannula 4 06/19/24 05:12 50 06/19/24 05:00 Nasal Cannula 4 06/19/24 04:45 BiPAP 06/19/24 04:44 BiPAP 06/19/24 04:44 BiPAP 06/19/24 04:44 BiPAP 06/19/24 04:44 BiPAP 06/19/24 04:44 Laboratory Results 06/19/24 04:45 06/19/24 04:45 Code Status & VTE Plan Code Status Full code PG Care Time/CCT Total # of Minutes Spent Total Time Spent with Patient: Total time spent is greater than 50% in coordination of care (as documented) at patient's floor/unit and/or counseling patient: Coding Level of Care Code 36116 INT INP/OBS CARE 3/75MIN Diagnoses Influenza A J10.1 Acute on chronic hypoxic respiratory failure J96.21 Acute exacerbation of chronic obstructive airways disease J44.1 PAD (peripheral artery disease) I73.9 Hypothyroidism, unspecified type E03.9 Hypothyroidism type: unspecified Factor V deficiency D68.2 (5) Hypothyroidism Hypothyroidism type: unspecified Qualified Code(s): E03.9 - Hypothyroidism, unspecified
[2024-06-19] MEDS ORDERED: methylPREDNISolone 1000 MG/16 ML IV SCH (10:34)
[2024-06-19] MEDS ORDERED: ACETAMINOPHEN 325 MG TAB PO PRN (10:34)
[2024-06-19] MEDS ORDERED: ONDANSETRON INJ 2 MG/ML 2 ML VIAL IV PRN (10:34)
[2024-06-19] MEDS: ALBUT/IPRATROP 3MG/0.5MG NEB 3 ML VIAL NEB SCH (10:48)
[2024-06-19] MEDS: VIBEGRON 75 MG TAB PO SCH (12:00)
[2024-06-19] MEDS: LORazepam 1 MG TAB PO SCH (12:00)
[2024-06-19] MEDS: LEVOTHYROXINE SODIUM 25 MCG TABLET PO SCH (12:06)
[2024-06-19] MEDS: methylPREDNISolone 40 MG in SYRINGE 0 ML IV SCH (12:06)
[2024-06-19] MEDS: METOPROLOL SUCC 25MG EXT REL TAB PO SCH (12:06)
[2024-06-19 14:27] LABS: Appearance Urine Cloudy (Clear); Bacteria Urine Automated 3+ (None Seen); Bilirubin Urine Negative (Negative); Blood Urine Trace (Negative); Cast Urine Automated 0-2 /lpf (0-2); Color Urine Yellow; Glucose Urine UA Negative (Negative); Ketones Urine Negative (Negative); Leukocyte Esterase Urine 2+ (Negative); Nitrite Urine Negative (Negative); Protein Urine 1+ (Negative); Specific Gravity Urine 1.022 (1.000-1.030); Urobilinogen Urine Negative (Negative)
--- NOTE | 2024-06-19 15:50 | Electrocardiogram Report ---
Test Reason : Blood Pressure : */* mmHG Vent. Rate : 101 BPM Atrial Rate : 101 BPM P-R Int : 136 ms QRS Dur : 72 ms QT Int : 332 ms P-R-T Axes : 81 70 32 degrees QTcB Int : 430 ms Sinus tachycardia Abnormal ECG When compared with ECG of 20-Jun-2023 13:13, Premature atrial complexes are no longer Present ST no longer depressed in Inferior leads Nonspecific T wave abnormality has replaced inverted T waves in Inferior leads Nonspecific T wave abnormality now evident in Lateral leads Confirmed by Aleks Banerjee ([id number]) on 06/19/2024 3:50:28 PM Referred By: REFERRED SELF Confirmed By: Aleks Banerjee
[2024-06-19] MEDS ORDERED: WARFARIN SOD 0.5 MG TAB PO SCH (16:00)
[2024-06-19] MEDS: WARFARIN SOD 0.5 MG TAB PO SCH (16:15)
[2024-06-19] MEDS: WARFARIN SOD 3 MG TAB PO SCH (16:15)
[2024-06-19] MEDS: ACETAMINOPHEN 500 MG TAB PO SCH (20:36)
[2024-06-19] MEDS: diphenhydrAMINE Capsule 25 MG CAP PO SCH (20:36)
[2024-06-19] MEDS: MELATONIN 3 MG TAB PO PRN (20:42)
[2024-06-19] MEDS: OSELTAMIVIR PHOSPHATE 6 MG/ML SUSP PO SCH (20:43)
[2024-06-20 04:56] LABS: Hemoglobin 10.8 g/dl (12.0-16.0); Mean Corpuscular Hemoglobin 30.5 pg (25.0-34.0); Mean Corpuscular Hgb Conc 33.8 g/dL (32.0-36.0); Mean Corpuscular Volume 90.4 fL (80.0-100.0); Mean Platelet Volume 9.9 fL (9.4-12.4); Platelet Count 173 K/uL (130-400); RDW Coefficient of Variation 13.4 % (11.5-14.5); RDW Standard Deviation 44.6 fL (36.4-46.3); Red Blood Count 3.54 M/uL (4.20-5.40); White Blood Count 10.68 K/ul (4.8-10.8)
[2024-06-20 05:10] LABS: BUN Creatinine Ratio 22.2 (10-20); Calcium 8.5 mg/dl (8.6-10.3); Creatinine Clr Calc Pharmacy 64.8 ml/min; Potassium 3.9 mmol/L (3.5-5.1)
[2024-06-20 05:17] LABS: Basophils # (auto) 0.01 K/uL (0.00-0.20); Basophils % (auto) 0.1 %; Immature Granulocytes # (auto) 0.07 K/uL (0.01-0.20); Immature Granulocytes % (auto) 0.7 %; Lymphocytes # (auto) 0.73 K/uL (1.20-3.40); Lymphocytes % (auto) 6.8 %; Monocytes # (auto) 0.25 K/uL (0.11-0.59); Monocytes % (auto) 2.3 %; Neutrophils # (auto) 9.62 K/uL (1.40-6.50); Neutrophils % (auto) 90.1 %
[2024-06-20 05:19] LABS: INR 3.1 (0.9-1.1); Prothrombin Time 30.5 Seconds (9.0-12.0)
[2024-06-20] MEDS: UMECLIDINIUM BROMIDE 62.5MCG/BLISTER 7 PUFFS/INHALER INH SCH (08:06)
[2024-06-20] MEDS: FLUTICASONE/VILANTEROL 200/25MCG 14 PUFFS/INHALER INH SCH (08:07)
[2024-06-20] MEDS: PANTOprazole 40 MG TAB PO SCH (08:07)
[2024-06-20 11:45] VITALS: BP 104/60; PULSE 97; RESP 20; TEMP 98.4; O2SAT 97
--- NOTE | 2024-06-20 11:49 | Discharge Summary ---
Discharge Summary Date of Service June 20, 2024 Principal Dx & Hospital Course #1 = Principal Diagnosis (1) Influenza A: Supportive care. Tamiflu for 5 days (2) Acute on chronic hypoxic respiratory failure: She is now back to her baseline oxygen use. Two-step was completed and she needs far less oxygen than she uses at home but she is intent on continuing to use her oxygen as she was using it before. (3) Acute exacerbation of chronic obstructive airways disease: She is back to her baseline. She was treated with parenteral steroid therapy while hospitalized along with scheduled nebulizer treatments. (4) PAD (peripheral artery disease): Stable. Continue current medical management (5) Hypothyroidism: Stable. 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 Daily INR Plan Home today, June 20 Admission HPI Per Admitting Provider 74-year-old female with COPD and chronic respiratory failure on home oxygen. For the past day or 2 she has had malaise and myalgias consistent with a viral illness. This has exacerbated her COPD and she has had more shortness of breath although she has a nonproductive cough. She is positive for influenza type a in the ED. Chest x-ray negative for pneumonia. She has improved since treatment initiated in the ED. No current fever. No hemoptysis. Chest x-ray negative for CHF or pneumonia Discharge Exam General-alert and oriented x3, no fever. Cachectic appearing HEENT-head atraumatic and normocephalic, pupils equal and reactive to light, extraocular muscles intact Neck-no lymphadenopathy or thyromegaly, trachea midline Chest-diminished breath sounds bilaterally. Faint bilateral end expiratory wheezes. No rhonchi. No inspiratory rales Cardiac-regular rate and rhythm, normal S1 and S2 Abdomen-normal bowel sounds, no hepatosplenomegaly Extremities-no cyanosis, clubbing, or edema Neuro-cranial nerves II through XII intact, motor and sensory function within normal limits, strength symmetrical, no focal deficits Psych-normal affect, normal mood Discharge Plan Discharge Items Patient Disposition: Home - Self-Care Reason For Visit: FLU, EXAC COPD Discharge Diagnosis: Influenza A, acute exacerbation COPD, acute on chronic respiratory failure Condition on Discharge: Fair Activity: Resume your previous activity Non-emergency contact: Primary Care Provider Call non-emergency contact if: your symptoms worsen Follow-up/Referrals: Grine,Nat M, DO [Primary Care Provider] - (PLEASE CALL YOUR PRIMARY CARE PROVIDER TO SCHEDULE A HOSPITAL DISCHARGE FOLLOW-UP APPOINTMENT WITHIN 7-10 DAYS) Diet: Regular Addtl Attending Provider Instructions: Take Tamiflu for 3 more days. A prescription has been sent to [facility] on [facility]. All other medications remain the same Pending Studies at Discharge: No Stand-Alone Forms: My [facility], Smoking Cessation Medications and DC Order Prescriptions: New oseltamivir [Tamiflu] 6 mg/mL Suspension For Reconstitution 30 mg PO BID Qty: 6 0RF Continued metoprolol succinate 25 mg tablet extended release 24 hr 25 mg PO TID Qty: 270 3RF albuterol sulfate 2.5 mg /3 mL (0.083 %) solution for nebulization 2.5 mg inhalation .COMPLEX PRN (Reason: sob) Patient Comments: 2.5 mg inhalation Every 4 to 6 hours PRN; Rx Instructions: 2.5 mg inhalation Every 4 to 6 hours PRN; lorazepam 1 mg tablet 1 mg PO BID levothyroxine 25 mcg tablet 37.5 mcg PO DAILYBB Rx Instructions: PO Takes 1.5 tabs daily; clonidine HCl 0.1 mg tablet 0.1 mg PO BID PRN (Reason: hypertensive emergency) Qty: 30 2RF Rx Instructions: For SBP > 170 mm HG. Up to 2X a day. (DME) Oxygen Home Liters Per Minute See Rx Instructions .ROUTE .MEDSUPPLY Qty: 2 0RF Rx Instructions: 2 L via nasal cannula to be used indefinitely during the day and when sleeping (DME) Portable Oxygen Misc See Rx Instructions .Route Qty: 1 0RF Rx Instructions: 2 L via nasal cannula to be used at rest, with exertion and when sleeping budesonide-formoterol 160-4.5 mcg/actuation HFA aerosol inhaler 2 puff inhalation BID Qty: 10.2 2RF Spiriva Respimat 2.5 mcg/actuation mist 2 inh inhalation QAM Qty: 3 1RF albuterol sulfate 90 mcg/actuation HFA aerosol inhaler 2 puff inhalation Q6H PRN (Reason: shortness of breath or wheezing) (DME) Portable Oxygen Misc See Rx Instructions .Route Qty: 1 0RF Rx Instructions: 2 L via nasal cannula. Portable oxygen concentrator test for portability Gemtesa 75 mg tablet 75 mg PO DAILY Qty: 30 2RF diphenhydramine-acetaminophen 25-500 mg Tablet 1 tab PO HS melatonin 10 mg Tablet 10 mg PO HS PRN (Reason: Sleep) esomeprazole magnesium 40 mg capsule,delayed release(DR/EC) 40 mg PO DAILY warfarin 1 mg tablet 3.5 mg PO DAILY Rx Instructions: Per pt she is trying to get down to 2 before switching to Eliquis. She last tested at 2.3 lubiprostone 24 mcg capsule 24 mcg PO BID Discharge Orders: Discharge Order (Routine); Ordered 06/20/24 Ordered By: Mahesh Mandel Admission Data Admit Date/Time: 06/19/24 08:11 Attending Provider: Maehsh Mandel Admit Provider: Mahesh Mandel Primary Care Provider: Nat Shankar Other Providers: Mahesh Mandel Hospital Stay Data Consultations 06/19/24 06:41 ED Decision to Admit Stat Diagnostic Imagining Performed 06/19/24 04:43 CT cervical spine wo con Stat CT head/brain wo con Stat Pending Results Patient Have Any Pending Studies at Discharge: No Discharge Instructions Given to Patient (Per Discharging Provider) Take Tamiflu for 3 more days. A prescription has been sent to [facility] on [facility]. All other medications remain the same Total Time Total Time Spent Total Time Spent (In Minutes): 45 minutes Coding Level of Care Code 56652 INP/OBS DISCH >30 MIN Diagnoses Influenza A J10.1 Acute on chronic hypoxic respiratory failure J96.21 Acute exacerbation of chronic obstructive airways disease J44.1 PAD (peripheral artery disease) I73.9 Hypothyroidism, unspecified type E03.9 Hypothyroidism type: unspecified Factor V deficiency D68.2
== END 2024-06-20 13:39 | disposition home or self-care (01) | DRG 194 ==
LOC: SUATTDRO → ED 04:38 → 2W 08:11